=== PATIENT | male | born 1945 | race Caucasian/White ===

== ENCOUNTER 2016-03-30 15:36 | Emergency (ER) | payer MEDICARE, OTHER ==
[2016-03-30] MEDS ORDERED: NS 0.9% 1000 ML* 1,000 ML IV ONE (16:32)
[2016-03-30 16:44] LABS: Hematocrit 42 % (42-52); Hemoglobin 13.8 g/dl (14.0-18.0); Mean Corpuscular HGB Conc 33 g/dl (31-36); Mean Corpuscular Hemoglobin 34 pg (27-31); Mean Corpuscular Volume 104 fL (80-94); Mean Platelet Volume 10 um3 (7.4-10.4); Red Blood Count 4.02 10^6/ul (4.0-5.4); Red Cell Distribution Width 15 % (10.5-15)
[2016-03-30 16:56] LABS: ALT 14 U/L (7-52); Albumin 4.2 g/dL (3.2-5.2); Alkaline Phosphatase 65 U/L (34-104); BUN/Creatinine Ratio 12.5 (8-20); Blood Urea Nitrogen 11 mg/dL (6-24); CO2 Carbon Dioxide 24 mmol/L (22-32); Calcium 9.3 mg/dL (8.6-10.3); Chloride 100 mmol/L (101-111); EGFR African American 110.1 (>60); EGFR Non-African American 85.6 (>60); Glucose 88 mg/dL (70-100); Magnesium 2.1 mg/dL (1.9-2.7); Sodium 134 mmol/L (133-145); Total Protein 8.2 g/dL (6.4-8.9)
[2016-03-30] MEDS ORDERED: levETIRAcetam TAB* 500 MG PO ONE (18:36)
[2016-03-30 19:11] VITALS: BP 136/62
--- NOTE | 2016-03-30 22:49 | ED ---
Healdio Cook Matthew, scribed for Shin Sanchez MD on 03/30/16 at 1626 . Syncope/Near Syncope - HPI Summary HPI Summary: A 70 y/o male presents to the ED by EMS after a syncopal episode this afternoon. The patient was sitting and talking to his , when per the the patient's head slumped down and his eye's rolled back. Associated symptoms include weakness, diaphoresis, and increased thirst/urinary output. The patient denies any pain during the episode. The episode subsided some time during the ambulance ride. Currently, the patient feels less alert than baseline. He has a Hx of syncopal episodes and this episode felt similar; however, it was worse than before. The patient see's Dr. Kidd and is on keppra. He's also on Warfarin for AFib. He has a Hx of two CVA. He's also c/o of decreased appetite for the past - 4 weeks. - History Of Current Complaint Chief Complaint: EDSyncope Time Seen by Provider: 03/30/16 15:54 Hx Obtained From: Patient, Family/Grinder Set Up Operator Thread Tool - Onset/Duration: Sudden Onset, Lasting Minutes, Resolved Timing: Constant Context: Witnessed Activity At Onset: At Rest Associated Head Trauma: No Aggravating Factor(s): Nothing Alleviating Factor(s): Spontaneous Resolution Associated Signs And Symptoms: Diaphoresis, Weakness, Other - Increased thirst - Allergies/Home Medications Allergies/Adverse Reactions: Allergies Allergy/AdvReac Type Severity Reaction Status Date / Time Iodine Allergy Severe SEVERE Verified 12/11/15 16:03 HIVES, THROAT CLOSES Azithromycin [From Zithromax] Allergy Rash Verified 12/11/15 16:03 Pregabalin [From Lyrica] Allergy SEVERE Verified 12/11/15 16:03 BRADYCARDIA WITH SYNCOPE PMH/Surg Hx/FS Hx/Imm Hx Endocrine/Hematology History: Denies: Hx Diabetes Cardiovascular History: Reports: Hx Atrial Fibrillation, Hx Hypertension - ON MEDS, Other Cardiovascular Problems/Disorders - Afib Denies: Hx Pacemaker/ICD Respiratory History: Reports: Other Respiratory Problems/Disorders - sinusitis Denies: Hx Asthma History: Reports: Other Problems/Disorders - urostomy, bladder cancer and bladder removal Denies: Hx Dialysis, Hx Renal Disease Musculoskeletal History: Reports: Hx Arthritis Sensory History: Reports: Hx Cataracts - removed, Hx Contacts or Glasses Denies: Hx Hearing Aid Opthamlomology History: Reports: Hx Cataracts - removed, Hx Contacts or Glasses Neurological History: Reports: Hx CVA - 2010 - affected left side of body, 2012 - affected right side of body Psychiatric History: Denies: Hx Panic Disorder - Cancer History Cancer Type, Location and Year: PROSTATE CA, Bladder CA Hx Chemotherapy: No Hx Radiation Therapy: No - Surgical History Surgery Procedure, Year, and Place: FULL BLADDER/PROSTATE REMOVAL ;. Cataracts removed; Hx Anesthesia Reactions: No Infectious Disease History: No Infectious Disease History: Denies: Traveled Outside the [place] in Last 30 Days - Family History Known Family History: Positive: Other - Cancer - both parents and brother - Social History Alcohol Use: Daily Alcohol Amount: 5-6 beers Substance Use Type: Reports: None Smoking Status (MU): Former Smoker Type: Cigarettes Amount Used/How Often: 1.5-2 PPD Have You Smoked in the Last Year: No Review of Systems Constitutional: Other - Increased thirst Positive: Skin Diaphoresis Eyes: Negative ENT: Negative Cardiovascular: Negative Respiratory: Negative Gastrointestinal: Negative Genitourinary: Other - Increased urinary output Musculoskeletal: Negative Skin: Negative Positive: Weakness, Syncope Psychological: Normal All Other Systems Reviewed And Are Negative: Yes Physical Exam Triage Information Reviewed: Yes Vital Signs On Initial Exam: Initial Vitals Temp Pulse Resp BP Pulse Ox 97.5 F 51 14 110/86 100 03/30/16 15:38 03/30/16 15:38 03/30/16 15:38 03/30/16 15:38 03/30/16 15:38 Vital Signs Reviewed: Yes Appearance: Positive: Well-Appearing, No Pain Distress Skin: Positive: Warm, Skin Color Reflects Adequate Perfusion, Dry Head/Face: Positive: Normal Head/Face Inspection Eyes: Positive: Normal ENT: Positive: Other - oral mucosa dry Neck: Positive: Supple, Nontender Respiratory/Lung Sounds: Positive: Clear to Auscultation, Breath Sounds Present Cardiovascular: Positive: IRR Abdomen Description: Positive: Nontender, Soft Bowel Sounds: Positive: Present Musculoskeletal: Positive: Normal Neurological: Positive: Normal Psychiatric: Positive: Normal, Affect/Mood Appropriate - Shania Coma Scale Coma Scale Total: 15 Diagnostics - Vital Signs Vital Signs Temp Pulse Resp BP Pulse Ox 03/30/16 15:38 97.5 F 51 14 110/86 100 - Laboratory Lab Results: Lab Results 03/30/16 03/30/16 03/30/16 Range/Units 15:40 15:40 15:40 WBC 5.0 (3.5-10.8) 10^3/ul RBC 4.02 (4.0-5.4) 10^6/ul Hgb 13.8 L (14.0-18.0) g/dl Hct 42 (42-52) % MCV 104 H (80-94) fL MCH 34 H (27-31) pg MCHC 33 (31-36) g/dl RDW 15 (10.5-15) % Plt Count 146 L (150-450) 10^3/ul MPV 10 (7.4-10.4) um3 Neut % (Auto) 55.6 (38-83) % Lymph % (Auto) 32.6 (25-47) % [place] % (Auto) 8.3 (1-9) % Eos % (Auto) 2.9 (0-6) % Baso % (Auto) 0.6 (0-2) % Absolute Neuts (auto) 2.8 (1.5-7.7) 10^3/ul Absolute Lymphs (auto) 1.6 (1.0-4.8) 10^3/ul Absolute Monos (auto) 0.4 (0-0.8) 10^3/ul Absolute Eos (auto) 0.1 (0-0.6) 10^3/ul Absolute Basos (auto) 0 (0-0.2) 10^3/ul Absolute Nucleated RBC 0.01 10^3/ul Nucleated RBC % 0.3 INR (Anticoag Therapy) 2.66 H (0.89-1.11) Sodium 134 (133-145) mmol/L Potassium TNP Chloride 100 L (101-111) mmol/L Carbon Dioxide 24 (22-32) mmol/L Anion Gap TNP BUN 11 (6-24) mg/dL Creatinine 0.88 (0.67-1.17) mg/dL Est GFR ( Amer) 110.1 (>60) Est GFR (Non-Af Amer) 85.6 (>60) BUN/Creatinine Ratio 12.5 (8-20) Glucose 88 (70-100) mg/dL Lactic Acid (0.5-2.0) mmol/L Calcium 9.3 (8.6-10.3) mg/dL Magnesium 2.1 (1.9-2.7) mg/dL Total Bilirubin 0.60 (0.2-1.0) mg/dL AST TNP ALT 14 (7-52) U/L Alkaline Phosphatase 65 (34-104) U/L Troponin I 0.00 (<0.04) ng/mL Total Protein 8.2 (6.4-8.9) g/dL Albumin 4.2 (3.2-5.2) g/dL Globulin 4.0 (2-4) g/dL Albumin/Globulin Ratio 1.1 (1-3) TSH 8.60 H (0.34-5.60) mcIU/mL Valproic Acid 121.0 H (50-100) mcg/mL 03/30/16 Range/Units 15:40 WBC (3.5-10.8) 10^3/ul RBC (4.0-5.4) 10^6/ul Hgb (14.0-18.0) g/dl Hct (42-52) % MCV (80-94) fL MCH (27-31) pg MCHC (31-36) g/dl RDW (10.5-15) % Plt Count (150-450) 10^3/ul MPV (7.4-10.4) um3 Neut % (Auto) (38-83) % Lymph % (Auto) (25-47) % [place] % (Auto) (1-9) % Eos % (Auto) (0-6) % Baso % (Auto) (0-2) % Absolute Neuts (auto) (1.5-7.7) 10^3/ul Absolute Lymphs (auto) (1.0-4.8) 10^3/ul Absolute Monos (auto) (0-0.8) 10^3/ul Absolute Eos (auto) (0-0.6) 10^3/ul Absolute Basos (auto) (0-0.2) 10^3/ul Absolute Nucleated RBC 10^3/ul Nucleated RBC % INR (Anticoag Therapy) (0.89-1.11) Sodium (133-145) mmol/L Potassium Chloride (101-111) mmol/L Carbon Dioxide (22-32) mmol/L Anion Gap BUN (6-24) mg/dL Creatinine (0.67-1.17) mg/dL Est GFR ( Amer) (>60) Est GFR (Non-Af Amer) (>60) BUN/Creatinine Ratio (8-20) Glucose (70-100) mg/dL Lactic Acid 3.2 H* (0.5-2.0) mmol/L Calcium (8.6-10.3) mg/dL Magnesium (1.9-2.7) mg/dL Total Bilirubin (0.2-1.0) mg/dL AST ALT (7-52) U/L Alkaline Phosphatase (34-104) U/L Troponin I (<0.04) ng/mL Total Protein (6.4-8.9) g/dL Albumin (3.2-5.2) g/dL Globulin (2-4) g/dL Albumin/Globulin Ratio (1-3) TSH (0.34-5.60) mcIU/mL Valproic Acid (50-100) mcg/mL Result Diagrams: 03/30/16 15:40 03/30/16 15:40 Lab Statement: Any lab studies that have been ordered have been reviewed, and results considered in the medical decision making process. - EKG 15:28 Cardiac Rate: NL - 66 bpm EKG Rhythm: Atrial Fibrillation ST Segment: Non-Specific Course/Dx Assessment/Plan: A 70 y/o male presents to the ED by EMS after a syncopal episode this afternoon. Associated symptoms include weakness, diaphoresis, and increased thirst/urinary output. Labs were reviewed. EKG shows AFib at 66 bpm. He and his don't know the details but it seems that he has been tapering his Keppra and starting Depakote. His last Keppra was the night before last. Dr. Smith recommended a dose of Keppra now and consult with Dr. Kidd tomorrow. The patient will follow-up with Dr. Kidd tomorrow for further management. - Diagnoses Provider Diagnoses: Breakthrough seizure Discharge - Discharge Plan Condition: Stable Disposition: HOME Patient Education Materials: Recurrent Seizures in Adults (ED) Referrals: Jerson Kidd MD [Medical Doctor] - 1 Day Diana Killian MD [Primary Care Provider] - Additional Instructions: Please follow-up with Dr. Kidd tomorrow. The documentation as recorded by the Heladio shane Matthew accurately reflects the service I personally performed and the decisions made by me, Shin Sanchez MD.
== END 2016-03-30 19:01 | disposition home or self-care (01) ==
LOC: ED 15:36
DX: G40.909 Epilepsy, unspecified, not intractable, without status epilepticus (principal); I48.91 Unspecified atrial fibrillation; Z86.73 Personal history of transient ischemic attack (TIA), and cerebral infarction without residual deficits; Z79.02 Long term (current) use of antithrombotics/antiplatelets; I10 Essential (primary) hypertension; Z87.891 Personal history of nicotine dependence
CPT/HCPCS: 36415; 80053; 80164; 83605; 83735; 84443; 84484; 85025; 85610; 93005; 96360; 99283; A9270-GY

== ENCOUNTER 2016-07-21 10:04 | Inpatient (IN) | payer MEDICARE, OTHER ==
[2016-07-21 10:41] LABS: Hematocrit 43 % (42-52); Hemoglobin 14.1 g/dl (14.0-18.0); Mean Corpuscular HGB Conc 33 g/dl (31-36); Mean Corpuscular Hemoglobin 35 pg (27-31); Mean Platelet Volume 9 um3 (7.4-10.4); Red Blood Count 4.01 10^6/ul (4.0-5.4); Red Cell Distribution Width 15 % (10.5-15); White Blood Count 6.6 10^3/ul (3.5-10.8)
[2016-07-21 10:45] LABS: Comments Flag Yes; Mean Corpuscular Volume 106 fL (80-94)
--- NOTE | 2016-07-21 10:49 | RAD ---
INDICATION: Cough, chest tightness. COMPARISON: Comparison is made with a prior chest x-ray study from July 10, 2016. TECHNIQUE: A portable view of the chest was obtained. FINDINGS: Cardiac and mediastinal contours appear to be within normal limits. The lungs are clear. No pleural effusion is seen. IMPRESSION: NO EVIDENCE FOR ACUTE DISEASE.
[2016-07-21 10:59] LABS: Albumin 4.2 g/dL (3.2-5.2); BUN/Creatinine Ratio 15.7 (8-20); C Reactive Protein 17.87 mg/L (< 5.00); Calcium 9.3 mg/dL (8.6-10.3); EGFR African American 117.8 (>60); EGFR Non-African American 91.6 (>60); Globulin 4.1 g/dL (2-4); Potassium 4.1 mmol/L (3.5-5.0); Total Bilirubin 0.9 mg/dL (0.2-1.0); Total Protein 8.3 g/dL (6.4-8.9)
[2016-07-21] MEDS ORDERED: Albuterol/Ipratropium NEB.SOL* Albuterol 2.5 MG/Ipratropium 0.5 MG 3 ML INH ONE ×2 (11:06→11:51)
[2016-07-21 11:11] LABS: TSH (Thyroid Stimulating Horm) 2.79 mcIU/mL (0.34-5.60)
[2016-07-21] MEDS ORDERED: Acetaminophen TAB* 325 MG PO ONE (11:51)
[2016-07-21] MEDS ORDERED: methylPREDNISolone 125 MG* 2 ML VIAL IV ONE (11:51)
[2016-07-21] MEDS ORDERED: Aspirin Low Dose CHEW TAB* 81 MG PO ONE (11:51)
[2016-07-21] MEDS ORDERED: Levofloxacin 750 MG IVPREMIX(* 750 MG/150 ML BAG IVPB ONE (11:51)
[2016-07-21] MEDS: NS 0.9% 1000 ML* 1,000 ML IV SCH ×2 (12:03→22:21)
[2016-07-21] MEDS ORDERED: Ondansetron INJ* 2 MG/ML VIAL IV PRN (12:39)
[2016-07-21] MEDS ORDERED: Acetaminophen TAB* 325 MG PO PRN (12:39)
[2016-07-21] MEDS ORDERED: Albuterol 2.5 MG/3 ML NEB.SOL* (0.083%) INH PRN (12:39)
[2016-07-21] MEDS ORDERED: Magnesium Hydroxide LIQ* 30 ML UDC PO ONE (12:50)
[2016-07-21] MEDS ORDERED: Warfarin TAB(*) 1 MG PO SCH ×2 (13:00→17:00)
[2016-07-21] MEDS ORDERED: Digoxin TAB* 0.125 MG PO SCH (13:00)
[2016-07-21] MEDS ORDERED: LORazepam TAB(*) 1 MG PO SCH (13:00)
[2016-07-21] MEDS: Albuterol/Ipratropium NEB.SOL* Albuterol 2.5 MG/Ipratropium 0.5 MG 3 ML INH SCH ×3 (13:33→23:09)
--- NOTE | 2016-07-21 13:33 | ED ---
Yariel Cook Alfonso, scribed for Hilario Coppola MD on 07/21/16 at 1037 . Shortness of Breath - HPI Summary HPI Summary: This patient is a 70 year old male presenting to [facility] for dyspnea at rest since a few days ago. This morning, the patient reports his "worst episode of coughing that left me choking." For the last few days, he reports having SOB, rhinorrhea, a productive cough with green sputum, sneezing, constipation, nausea , chest tightness, abdominal pain, weakness, lightheadedness, and a headache in the frontal lobe that does not radiate. Patient denies sore throat and diarrhea. Sx aggravated and alleviated by nothing. PMHx of A-Fib. Reports no PMHx of COPD and asthma, but has been using an inhaler for the last two days. Takes blood thinner and digoxin. - History of Current Complaint Chief Complaint: EDShortnessOfBreath Time Seen by Provider: 07/21/16 10:15 Hx Obtained From: Patient Onset/Duration: Sudden Onset, Lasting Days - A few, Still Present Timing: Constant Current Severity: Moderate Dyspnea At: Rest Aggrevating Factors: Nothing Alleviating Factors: Nothing Associated Signs & Symptoms: Cough (Productive) - Green Sputum, Wheezing - Allergy/Home Medications Allergies/Adverse Reactions: Allergies Allergy/AdvReac Type Severity Reaction Status Date / Time Iodine Allergy Severe SEVERE Verified 12/11/15 16:03 HIVES, THROAT CLOSES Azithromycin [From Zithromax] Allergy Rash Verified 12/11/15 16:03 Pregabalin [From Lyrica] Allergy SEVERE Verified 12/11/15 16:03 BRADYCARDIA WITH SYNCOPE Home Medications: Home Medications Digoxin TAB* [Lanoxin TAB*] 0.125 mg PO Q48H 07/21/16 [History Confirmed ] Warfarin TAB(*) [Coumadin TAB(*)] 1 mg PO [id number] 07/21/16 [History Confirmed 07/21/16] Warfarin TAB(*) [Coumadin TAB(*)] 2 mg PO ONOFRE 07/21/16 [History Confirmed ] PMH/Surg Hx/FS Hx/Imm Hx Endocrine/Hematology History: Denies: Hx Diabetes Cardiovascular History: Reports: Hx Atrial Fibrillation, Hx Hypertension - ON MEDS, Other Cardiovascular Problems/Disorders - Afib Denies: Hx Pacemaker/ICD Respiratory History: Reports: Other Respiratory Problems/Disorders - sinusitis Denies: Hx Asthma History: Reports: Other Problems/Disorders - urostomy, bladder cancer and bladder removal Denies: Hx Dialysis, Hx Renal Disease Musculoskeletal History: Reports: Hx Arthritis Sensory History: Reports: Hx Cataracts - removed, Hx Contacts or Glasses Denies: Hx Hearing Aid Opthamlomology History: Reports: Hx Cataracts - removed, Hx Contacts or Glasses Neurological History: Reports: Hx CVA - 2010 - affected left side of body, 2012 - affected right side of body Psychiatric History: Denies: Hx Panic Disorder - Cancer History Cancer Type, Location and Year: PROSTATE CA, Bladder CA Hx Chemotherapy: No Hx Radiation Therapy: No - Surgical History Surgery Procedure, Year, and Place: FULL BLADDER/PROSTATE REMOVAL ;. Cataracts removed; Hx Anesthesia Reactions: No Infectious Disease History: No Infectious Disease History: Denies: Traveled Outside the [place] in Last 30 Days - Family History Known Family History: Positive: Other - Cancer - both parents and brother - Social History Alcohol Use: Daily Alcohol Amount: "one to two a night" Substance Use Type: Reports: None Smoking Status (MU): Former Smoker Type: Cigarettes Amount Used/How Often: 1.5-2 PPD Have You Smoked in the Last Year: No Review of Systems Constitutional: Negative Eyes: Negative ENT: Negative Negative: Sore Throat Positive: Other - Positive chest tightness Positive: Shortness Of Breath, Cough - Productive cough with green sputum, Other - Positive dyspnea at rest, sneezing, wheezing, and rhinorrhea. Negative sore throat. Positive: Abdominal Pain, Nausea, Other - Positive constipation. Negative: Diarrhea Genitourinary: Negative Positive: Other - Chest tightness Skin: Negative Neurological: Other - Positive Lightheadedness Positive: Headache - frontal lobe that does not radiate, Weakness Psychological: Normal All Other Systems Reviewed And Are Negative: Yes Physical Exam - Summary Physical Exam Summary: Gen: Mildly ill appearing, no pain distress Skin: warm, color, dry Head: normal Eyes: EOMI, SHY ENT: rhinorrhea Neck: supple, nontender Resp: Breath sounds present, no respiratory distress, Wheezing and rhonchi in bilateral lungs. Cardio: RRR Abd: soft, nontender Bowel: present Musc: normal, strength/ROM intact. No pedal edema. No calf tenderness. Neuro: normal, sensory/motor intact, A&O x3 Psych: affect/mood appropriate Triage Information Reviewed: Yes Vital Signs On Initial Exam: Initial Vitals Temp Pulse Resp BP Pulse Ox 97.4 F 85 20 139/70 99 07/21/16 10:04 07/21/16 10:04 07/21/16 10:04 07/21/16 10:04 07/21/16 10:04 Vital Signs Reviewed: Yes Diagnostics - Vital Signs Vital Signs Temp Pulse Resp BP Pulse Ox 07/21/16 10:07 97.4 F 57 20 139/70 98 07/21/16 10:04 97.4 F 85 20 139/70 99 - Laboratory Lab Results: Lab Results 07/21/16 07/21/16 07/21/16 Range/Units 10:21 10:21 10:21 WBC 6.6 (3.5-10.8) 10^3/ul RBC 4.01 (4.0-5.4) 10^6/ul Hgb 14.1 (14.0-18.0) g/dl Hct 43 (42-52) % MCV 106 H (80-94) fL MCH 35 H (27-31) pg MCHC 33 (31-36) g/dl RDW 15 (10.5-15) % Plt Count 162 (150-450) 10^3/ul MPV 9 (7.4-10.4) um3 Neut % (Auto) 57.0 (38-83) % Lymph % (Auto) 16.6 L (25-47) % [place] % (Auto) 10.4 H (1-9) % Eos % (Auto) 15.0 H (0-6) % Baso % (Auto) 1.0 (0-2) % Absolute Neuts (auto) 3.8 (1.5-7.7) 10^3/ul Absolute Lymphs (auto) 1.1 (1.0-4.8) 10^3/ul Absolute Monos (auto) 0.7 (0-0.8) 10^3/ul Absolute Eos (auto) 1.0 H (0-0.6) 10^3/ul Absolute Basos (auto) 0.1 (0-0.2) 10^3/ul Absolute Nucleated RBC 0.01 10^3/ul Nucleated RBC % 0.1 INR (Anticoag Therapy) 2.61 H (0.89-1.11) APTT 41.7 H (26.0-36.3) seconds Sodium 142 (133-145) mmol/L Potassium 4.1 (3.5-5.0) mmol/L Chloride 108 (101-111) mmol/L Carbon Dioxide 26 (22-32) mmol/L Anion Gap 8 (2-11) mmol/L BUN 13 (6-24) mg/dL Creatinine 0.83 (0.67-1.17) mg/dL Est GFR ( Amer) 117.8 (>60) Est GFR (Non-Af Amer) 91.6 (>60) BUN/Creatinine Ratio 15.7 (8-20) Glucose 111 H (70-100) mg/dL Lactic Acid (0.5-2.0) mmol/L Calcium 9.3 (8.6-10.3) mg/dL Magnesium 2.0 (1.9-2.7) mg/dL Total Bilirubin 0.90 (0.2-1.0) mg/dL AST 22 (13-39) U/L ALT 13 (7-52) U/L Alkaline Phosphatase 80 (34-104) U/L Total Creatine Kinase 127 (10-223) U/L CK-MB (CK-2) 5.8 (0.6-6.3) ng/mL Troponin I 0.00 (<0.04) ng/mL C-Reactive Protein 17.87 H (< 5.00) mg/L B-Natriuretic Peptide ( - 100) pg/mL Total Protein 8.3 (6.4-8.9) g/dL Albumin 4.2 (3.2-5.2) g/dL Globulin 4.1 H (2-4) g/dL Albumin/Globulin Ratio 1.0 (1-3) Lipase 29 (11.0-82.0) U/L TSH 2.79 (0.34-5.60) mcIU/mL 07/21/16 07/21/16 Range/Units 10:21 10:21 WBC (3.5-10.8) 10^3/ul RBC (4.0-5.4) 10^6/ul Hgb (14.0-18.0) g/dl Hct (42-52) % MCV (80-94) fL MCH (27-31) pg MCHC (31-36) g/dl RDW (10.5-15) % Plt Count (150-450) 10^3/ul MPV (7.4-10.4) um3 Neut % (Auto) (38-83) % Lymph % (Auto) (25-47) % [place] % (Auto) (1-9) % Eos % (Auto) (0-6) % Baso % (Auto) (0-2) % Absolute Neuts (auto) (1.5-7.7) 10^3/ul Absolute Lymphs (auto) (1.0-4.8) 10^3/ul Absolute Monos (auto) (0-0.8) 10^3/ul Absolute Eos (auto) (0-0.6) 10^3/ul Absolute Basos (auto) (0-0.2) 10^3/ul Absolute Nucleated RBC 10^3/ul Nucleated RBC % INR (Anticoag Therapy) (0.89-1.11) APTT (26.0-36.3) seconds Sodium (133-145) mmol/L Potassium (3.5-5.0) mmol/L Chloride (101-111) mmol/L Carbon Dioxide (22-32) mmol/L Anion Gap (2-11) mmol/L BUN (6-24) mg/dL Creatinine (0.67-1.17) mg/dL Est GFR ( Amer) (>60) Est GFR (Non-Af Amer) (>60) BUN/Creatinine Ratio (8-20) Glucose (70-100) mg/dL Lactic Acid 1.2 (0.5-2.0) mmol/L Calcium (8.6-10.3) mg/dL Magnesium (1.9-2.7) mg/dL Total Bilirubin (0.2-1.0) mg/dL AST (13-39) U/L ALT (7-52) U/L Alkaline Phosphatase (34-104) U/L Total Creatine Kinase (10-223) U/L CK-MB (CK-2) (0.6-6.3) ng/mL Troponin I (<0.04) ng/mL C-Reactive Protein (< 5.00) mg/L B-Natriuretic Peptide 174 H ( - 100) pg/mL Total Protein (6.4-8.9) g/dL Albumin (3.2-5.2) g/dL Globulin (2-4) g/dL Albumin/Globulin Ratio (1-3) Lipase (11.0-82.0) U/L TSH (0.34-5.60) mcIU/mL Result Diagrams: 07/21/16 10:21 07/21/16 10:21 Lab Statement: Any lab studies that have been ordered have been reviewed, and results considered in the medical decision making process. - Radiology CXR Xray Interpretation: No Acute Changes - NO EVIDENCE FOR ACUTE DISEASE. Radiology Interpretation Completed By: Radiologist - EKG 1014 EKG Rhythm: Atrial Fibrillation - 83 BPM EKG Interpretation: RBBB. Mild ST Depression in V4-6 Re-Evaluation - Re-Evaluation First Eval Re-Evaluation Time: 11:55 Comment: Patient is still wheezing. Discussed admission with the patient and they are agreeable. Second Eval Re-Evaluation Time: 12:45 Course/Dx - Course Course Of Treatment: NO CRITICAL CARE TIME. ADMIT HOSPITALIST STABLE. - Diagnoses Provider Diagnoses: COPD (chronic obstructive pulmonary disease), Chest pain - Physician Notifications Discussed Care of Patient With: Asher Shane Time Discussed With Above Provider: 12:00 - Dr. Shane agrees to admit patient. Discharge - Discharge Plan Condition: Stable Disposition: ADMITTED TO [facility] documentation as recorded by the Yariel shane Alfonso accurately reflects the service I personally performed and the decisions made by me, Hilario Coppola MD.
[2016-07-21] MEDS ORDERED: cefTRIAXone VIAL(*) 1,000 MG in NS 0.9% 50 ML* 50 ML IVPB SCH (14:00)
[2016-07-21] MEDS ORDERED: NS 0.9% 250 ML* 250 ML ONE (14:16)
[2016-07-21] MEDS: Azithromycin IV(*) 500 MG in NS 0.9% 250 ML* 250 ML IVPB SCH (14:30)
[2016-07-21] MEDS: predniSONE TAB* 20 MG PO SCH (14:30)
--- NOTE | 2016-07-21 15:05 | HP ---
CC: Dr. Diana Barragan. * HISTORY AND PHYSICAL: DATE OF ADMISSION: 07/21/16 PRIMARY CARE PROVIDER: Dr. Diana Barragan. ATTENDING PHYSICIAN WHILE IN THE HOSPITAL: Dr. Asher Shane *(report dictated by Vidal Garcia NP). CHIEF COMPLAINT: 1. Shortness of breath. 2. Tightness in chest. HISTORY OF PRESENT ILLNESS: Mr. Gamez is a 70-year-old male patient. He has a history of AFib, bladder cancer status post bladder resection with urostomy, history of CVA x2, hypertension, gout, and COPD. He comes into the ER today stating that over the last couple of weeks, he has been feeling more short of breath. He has been having congestion, runny nose. He started out with this congestion and runny nose about a couple of weeks ago and has progressively gotten worse now to the point that he feels tightness in his chest. It is hard for him to breathe. He is feeling more short of breath. He has been feeling nauseated and in addition to this, he has also been feeling constipated. He denies any abdominal pain. He says his urostomy has been working appropriately. Denies having any pain with this. He does state that his breathing was not getting any better to the fact that he was feeling congested and he was having chills off and on. He decides to come into the ER today particularly because of the chest pain as well, which he describes as a tightness in his chest, it is painful when he does take a deep breath and it is across the center of his chest. He does state that it gets worse with exertion particularly his breathing. He was evaluated in the ER here today and there was concern for possible COPD exacerbation. We were asked to evaluate for admission. PAST MEDICAL HISTORY: Significant for: 1. AFib. 2. CVA x2. 3. Gout. 4. COPD. 5. Bladder cancer. 6. Hypertension. PAST SURGICAL HISTORY: He has had an urostomy. HOME MEDICATIONS: According to the list he provided to me included: 1. Warfarin 2 mg on Thursday. 2. Warfarin 1 mg Thursday, Thursday, Thursday, , Thursday, Thursday. 3. [place] 1 tablet every 4 hours as needed. 4. Digoxin 0.125 mg p.o. every other day. 5. Ventolin 1 puff inhaler every 4 hours. 6. Advair 1 puff inhaled b.i.d. 7. Diltiazem 120 mg daily. 8. Allopurinol 300 mg daily. 9. Mometasone 15 mcg nasally b.i.d. as needed. ALLERGIES TO MEDICATIONS: Include IODINE, AZITHROMYCIN and LYRICA. FAMILY HISTORY: Both his parents have had cancer. SOCIAL HISTORY: He is a former smoker. He does drink about 4 to 5 beers a day. Surrogate decision maker is his . REVIEW OF SYSTEMS: There is no documented fever although he does admit to having chills. There was no significant weight change. There was no double vision. He denies having any ear discharge. There was rhinorrhea. There was no sore throat but he does admit to feeling congested. He does admit to feeling nauseated. He does admit to having constipation. He does state that he has been having a cough that has been productive of green type sputum. He denies any abdominal discomfort. Denies any lightheadedness. No dysuria, no frequency and there was no loss of consciousness. Review of 14 systems completed and all others negative. PHYSICAL EXAMINATION GENERAL: Mr. Combs is a 70-year-old male patient. He appears to be well nourished, well developed who is sitting in the ER stretcher. VITAL SIGNS: Blood pressure 107/59, the pulse is 78, respirations 18, O2 sat 96 %, temperature 97.4. HEENT: Head is atraumatic, normocephalic. Eyes: EOMs are intact. Sclerae anicteric and not pale. Throat: Oral mucosa appears to be moist. No oropharyngeal erythema. NECK: Supple. LUNGS: He did have rhonchi in the lower bases, equal diaphragmatic expansion. HEART: Sounds S1, S2. Regular rate and rhythm. No murmurs, rubs or gallops. ABDOMEN: Soft, flat, nontender. Bowel sounds present. EXTREMITIES: Pulses were 2+ throughout. He is able to move all 4 extremities with 5/5 strength. NEUROLOGIC: The patient is awake, he is alert, he is oriented x3. No gross focal deficits. SKIN: Intact. DIAGNOSTIC STUDIES/LAB DATA: Today revealed a WBC of 6.6, RBC of 4.01, hemoglobin 14.1, hematocrit of 43, platelet count of 162. INR was 2.61, PTT was 41.7. Sodium 143, potassium 4.1, chloride of 108, bicarb 26, BUN 13, creatinine 0.83, glucose of 111, lactate 1.3, calcium 9.3. Mag 2.0, total bilirubin 0.9, AST 22, ALT 13, alk phos 80. CK 127, CK-MB 5.8. Troponin 0. CRP of 17. BNP 174. Albumin 4.2. TSH of 2.79. He had a chest x-ray obtained today, impression: No evidence for acute disease. EKG obtained today revealed atrial fibrillation with a rate of 83. He had a ST depression in V5, V4, V6 and V3. Subtle depression in II , III and AVF. On reviewing her previous EKG, this appears to be similar. Old medical records were reviewed. ASSESSMENT AND PLAN: Mr. Gamez is a 70-year-old male patient coming into the ER today with complaints of initially feeling congested, now progressing with a cough and shortness of breath and chest pain. On evaluation, there was a concern for chronic obstructive pulmonary disease. We were asked to evaluate for admission. He will be admitted under observation status. 1. Chronic obstructive pulmonary disease exacerbation. At this point, I will put him on steroids, standing nebulizers. We will put him on azithromycin and Rocephin. I will get a legionella antigen, strep pneumo antigen and in addition to this, try to get a sputum culture and I did order a flutter valve and will continue with pulmonary toileting. 2. Chest pain. I suspect this is pulmonary in nature. At this point, I am going to go ahead and cycle his troponins. We will place him on telemetry and will follow closely. 3. Atrial fibrillation. Continue his rate controlling agents, diltiazem along with his digoxin and also continue the patient's warfarin. 4. History of cerebrovascular accident. Continue secondary prevention. 5. History of gout. Continue with his allopurinol. 6. Bladder cancer. Follow with primary. 7. Hypertension. Continue meds as prescribed. 8. DVT prophylaxis. His INR is therapeutic. We will continue checking his INR. Continue with Coumadin for this. 9. Fluids, electrolytes and nutrition. He can have a regular diet. 10. Code status. Full code. TIME SPENT: Time spent on the admission 60 minutes, greater than half time spent [id number] with the patient obtaining my history and physical, other half of the time was spent going over the plan of care with the patient and implementing plan of care. I did discuss the plan of care with my attending Dr. Shane; he is in agreement. VIDAL GARCIA NP [id number]/[facility] #: [id number] LEANDRO
[2016-07-21 16:15] LABS: Urine Bacteria Absent (Absent); Urine Bilirubin Negative (Negative); Urine Glucose Negative (Negative); Urine Nitrite Negative (Negative)
[2016-07-21] MEDS: HYDROcodone/ACETAMIN 5-325 MG* 1 TAB PO PRN (18:09)
[2016-07-21] MEDS: Mometasone/Formoter 200/5 MDI INH SCH (19:58)
[2016-07-21] MEDS ORDERED: Fluticasone-Salmeterol 500-50* DISKUS INH SCH (21:00)
[2016-07-22] MEDS: NS 0.9% 1000 ML* 1,000 ML IV SCH ×2 (05:17→12:25)
[2016-07-22 05:58] LABS: Hematocrit 38 % (42-52); Hemoglobin 12.6 g/dl (14.0-18.0); Mean Corpuscular HGB Conc 33 g/dl (31-36); Mean Corpuscular Hemoglobin 35 pg (27-31); Mean Platelet Volume 10 um3 (7.4-10.4); Red Blood Count 3.56 10^6/ul (4.0-5.4); Red Cell Distribution Width 15 % (10.5-15)
[2016-07-22 06:06] LABS: Comments Flag Yes; Mean Corpuscular Volume 106 fL (80-94)
[2016-07-22 06:13] LABS: BUN/Creatinine Ratio 20.5 (8-20); Calcium 8.9 mg/dL (8.6-10.3); EGFR African American 136.6 (>60); EGFR Non-African American 106.2 (>60); Potassium 4.3 mmol/L (3.5-5.0)
[2016-07-22] MEDS: predniSONE TAB* 20 MG PO SCH (07:36)
[2016-07-22] MEDS: Folic Acid TAB* 1 MG PO SCH (07:37)
[2016-07-22] MEDS: Multivitamins/Minerals TAB PO SCH (07:37)
[2016-07-22] MEDS: HYDROcodone/ACETAMIN 5-325 MG* 1 TAB PO PRN (07:38)
[2016-07-22] MEDS: Allopurinol TAB* 300 MG PO SCH (07:38)
[2016-07-22] MEDS: Thiamine TAB* 100 MG TAB PO SCH (07:38)
[2016-07-22] MEDS: Diltiazem CD CAP* 120 MG PO SCH (07:38)
[2016-07-22] MEDS: Mometasone/Formoter 200/5 MDI INH SCH ×2 (09:32→21:50)
[2016-07-22] MEDS ORDERED: Omeprazole CAP* 20 MG PO ONE (11:55)
--- NOTE | 2016-07-22 12:16 | PN ---
Subjective Date of Service: 07/22/16 Interval History: Pt states he feels no better today than yesterday. He states in addition to the cough, SOB and weakness he also feels slightly lightheaded today. He states yesterday he brought up some mucous but today he has not. Family History: Unchanged from Admission Social History: Unchanged from Admission Past Medical History: Unchanged from Admission Objective Active Medications: Acetaminophen (Tylenol Tab*) 650 mg PO Q4H PRN PRN Reason: FEVER/PAIN Hydrocodone Bitart/Acetaminophen (Ironside 5-325 Tab*) 2 tab PO Q6H PRN PRN Reason: PAIN Last Admin: 07/22/16 07:38 Dose: 2 tab Albuterol (Ventolin 2.5 Mg/3 Ml Neb.Clementina*) 2.5 mg INH Q2H PRN PRN Reason: SOB/WHEEZING Allopurinol (Zyloprim Tab*) 300 mg PO DAILY [facility] Last Admin: 07/22/16 07:38 Dose: 300 mg Digoxin (Lanoxin Tab*) 0.125 mg PO Q48H [facility] Last Admin: 07/21/16 14:30 Dose: 0.125 mg Diltiazem HCl (Cardizem Cd Cap*) 120 mg PO DAILY [facility] Last Admin: 07/22/16 07:38 Dose: 120 mg Folic Acid (Folvite Tab*) 1 mg PO DAILY [facility] Last Admin: 07/22/16 07:37 Dose: 1 mg Sodium Chloride (Ns 0.9% 1000 Ml*) 1,000 mls @ 150 mls/hr IV PER RATE [facility] Last Admin: 07/22/16 05:17 Dose: 150 mls/hr Ceftriaxone Sodium 1,000 mg/ (Sodium Chloride) 50 mls @ 200 mls/hr IVPB Q24H [facility] Last Admin: 07/21/16 16:16 Dose: 200 mls/hr Azithromycin 500 mg/ Sodium (Chloride) 250 mls @ 250 mls/hr IVPB Q24H [facility] Last Admin: 07/21/16 14:30 Dose: 250 mls/hr Lorazepam (Ativan Tab(*)) 0 mg PO .PER WAM SCORE [facility] PRN Reason: Protocol Mometasone Furoate/Formoterol Fumar (Dulera 200/5 Mdi*) 2 puff INH BID [facility] Last Admin: 07/22/16 09:32 Dose: 2 puff Multivitamins/Minerals (Theragran/Minerals Tab*) 1 tab PO DAILY [facility] Last Admin: 07/22/16 07:37 Dose: 1 tab Omeprazole (Prilosec Cap*) 20 mg PO ONCE ONE Stop: 07/22/16 11:56 Omeprazole (Prilosec Cap*) 20 mg PO DAILY@0600 [facility] Ondansetron HCl (Zofran Inj*) 4 mg IV Q6H PRN PRN Reason: NAUSEA Prednisone (Deltasone Tab*) 60 mg PO DAILY [facility] Last Admin: 07/22/16 07:36 Dose: 60 mg Thiamine HCl (Vitamin B-1 Tab*) 100 mg PO DAILY [facility] Last Admin: 07/22/16 07:38 Dose: 100 mg Warfarin Sodium (Coumadin Tab(*)) 2 mg PO Rankin@1700 [facility] PRN Reason: Protocol Warfarin Sodium (Coumadin Tab(*)) 1 mg PO MoTuWeThFrSa@1700 [facility] PRN Reason: Protocol Last Admin: 07/21/16 18:09 Dose: 1 mg Vital Signs 07/21/16 07/21/16 07/21/16 13:00 13:05 13:12 Temperature 97.9 F Pulse Rate 82 102 Respiratory 23 12 16 Rate Blood Pressure 111/87 107/71 (mmHg) O2 Sat by Pulse 96 95 Oximetry 07/21/16 07/21/16 07/21/16 13:15 13:22 14:30 Temperature 97.8 F Pulse Rate 88 87 84 Respiratory 16 18 Rate Blood Pressure 138/72 (mmHg) O2 Sat by Pulse 95 Oximetry 07/21/16 07/21/16 07/21/16 15:28 17:50 18:09 Temperature 97.6 F Pulse Rate 87 76 Respiratory 22 13 16 Rate Blood Pressure 101/63 (mmHg) O2 Sat by Pulse 94 96 Oximetry 07/21/16 07/21/16 07/21/16 20:00 20:09 20:19 Temperature 97.7 F Pulse Rate 16 110 Respiratory 18 16 20 Rate Blood Pressure 114/65 (mmHg) O2 Sat by Pulse 73 96 Oximetry 07/21/16 07/22/16 07/22/16 22:40 01:08 03:09 Temperature 98.0 F 97.4 F 97.7 F Pulse Rate 78 88 97 Respiratory 16 16 16 Rate Blood Pressure 120/64 120/62 115/65 (mmHg) O2 Sat by Pulse 95 97 97 Oximetry 07/22/16 07/22/16 07/22/16 05:04 07:38 07:50 Temperature 97.5 F 98.6 F Pulse Rate 98 94 Respiratory 16 16 16 Rate Blood Pressure 129/76 142/74 (mmHg) O2 Sat by Pulse 97 97 Oximetry 07/22/16 07/22/16 07/22/16 09:38 09:40 10:37 Temperature 98.8 F Pulse Rate 100 94 Respiratory 16 16 16 Rate Blood Pressure 120/64 (mmHg) O2 Sat by Pulse 95 95 Oximetry Oxygen Devices in Use Now: None Appearance: Elderly male sitting up on the edge of the bed, appearing very comfortable, NAD Eyes: No Scleral Icterus Ears/Nose/Mouth/Throat: Mucous Membranes Moist Respiratory: Symmetrical Chest Expansion and Respiratory Effort, Clear to Auscultation Cardiovascular: NL Sounds; No Murmurs; No JVD, No Edema, - - irregularly irregular, controlled rate Abdominal: NL Sounds; No Tenderness; No Distention Extremities: No Clubbing, Cyanosis Skin: No Rash or Ulcers, No Nodules or Sclerosis Neurological: Alert and Oriented x 3 Result Diagrams: 07/22/16 05:37 07/22/16 05:37 Additional Lab and Data: Lab Results 07/21/16 07/21/16 07/21/16 Range/Units 10:21 10:21 10:21 WBC 6.6 (3.5-10.8) 10^3/ul RBC 4.01 (4.0-5.4) 10^6/ul Hgb 14.1 (14.0-18.0) g/dl Hct 43 (42-52) % MCV 106 H (80-94) fL MCH 35 H (27-31) pg MCHC 33 (31-36) g/dl RDW 15 (10.5-15) % Plt Count 162 (150-450) 10^3/ul MPV 9 (7.4-10.4) um3 Neut % (Auto) 57.0 (38-83) % Lymph % (Auto) 16.6 L (25-47) % [place] % (Auto) 10.4 H (1-9) % Eos % (Auto) 15.0 H (0-6) % Baso % (Auto) 1.0 (0-2) % Absolute Neuts (auto) 3.8 (1.5-7.7) 10^3/ul Absolute Lymphs (auto) 1.1 (1.0-4.8) 10^3/ul Absolute Monos (auto) 0.7 (0-0.8) 10^3/ul Absolute Eos (auto) 1.0 H (0-0.6) 10^3/ul Absolute Basos (auto) 0.1 (0-0.2) 10^3/ul Absolute Nucleated RBC 0.01 10^3/ul Nucleated RBC % 0.1 INR (Anticoag Therapy) 2.61 H (0.89-1.11) APTT 41.7 H (26.0-36.3) seconds Sodium 142 (133-145) mmol/L Potassium 4.1 (3.5-5.0) mmol/L Chloride 108 (101-111) mmol/L Carbon Dioxide 26 (22-32) mmol/L Anion Gap 8 (2-11) mmol/L BUN 13 (6-24) mg/dL Creatinine 0.83 (0.67-1.17) mg/dL Est GFR ( Amer) 117.8 (>60) Est GFR (Non-Af Amer) 91.6 (>60) BUN/Creatinine Ratio 15.7 (8-20) Glucose 111 H (70-100) mg/dL Lactic Acid (0.5-2.0) mmol/L Calcium 9.3 (8.6-10.3) mg/dL Magnesium 2.0 (1.9-2.7) mg/dL Total Bilirubin 0.90 (0.2-1.0) mg/dL AST 22 (13-39) U/L ALT 13 (7-52) U/L Alkaline Phosphatase 80 (34-104) U/L Total Creatine Kinase 127 (10-223) U/L CK-MB (CK-2) 5.8 (0.6-6.3) ng/mL Troponin I 0.00 (<0.04) ng/mL C-Reactive Protein 17.87 H (< 5.00) mg/L B-Natriuretic Peptide ( - 100) pg/mL Total Protein 8.3 (6.4-8.9) g/dL Albumin 4.2 (3.2-5.2) g/dL Globulin 4.1 H (2-4) g/dL Albumin/Globulin Ratio 1.0 (1-3) Lipase 29 (11.0-82.0) U/L TSH 2.79 (0.34-5.60) mcIU/mL 07/21/16 07/21/16 Range/Units 10:21 10:21 WBC (3.5-10.8) 10^3/ul RBC (4.0-5.4) 10^6/ul Hgb (14.0-18.0) g/dl Hct (42-52) % MCV (80-94) fL MCH (27-31) pg MCHC (31-36) g/dl RDW (10.5-15) % Plt Count (150-450) 10^3/ul MPV (7.4-10.4) um3 Neut % (Auto) (38-83) % Lymph % (Auto) (25-47) % [place] % (Auto) (1-9) % Eos % (Auto) (0-6) % Baso % (Auto) (0-2) % Absolute Neuts (auto) (1.5-7.7) 10^3/ul Absolute Lymphs (auto) (1.0-4.8) 10^3/ul Absolute Monos (auto) (0-0.8) 10^3/ul Absolute Eos (auto) (0-0.6) 10^3/ul Absolute Basos (auto) (0-0.2) 10^3/ul Absolute Nucleated RBC 10^3/ul Nucleated RBC % INR (Anticoag Therapy) (0.89-1.11) APTT (26.0-36.3) seconds Sodium (133-145) mmol/L Potassium (3.5-5.0) mmol/L Chloride (101-111) mmol/L Carbon Dioxide (22-32) mmol/L Anion Gap (2-11) mmol/L BUN (6-24) mg/dL Creatinine (0.67-1.17) mg/dL Est GFR ( Amer) (>60) Est GFR (Non-Af Amer) (>60) BUN/Creatinine Ratio (8-20) Glucose (70-100) mg/dL Lactic Acid 1.2 (0.5-2.0) mmol/L Calcium (8.6-10.3) mg/dL Magnesium (1.9-2.7) mg/dL Total Bilirubin (0.2-1.0) mg/dL AST (13-39) U/L ALT (7-52) U/L Alkaline Phosphatase (34-104) U/L Total Creatine Kinase (10-223) U/L CK-MB (CK-2) (0.6-6.3) ng/mL Troponin I (<0.04) ng/mL C-Reactive Protein (< 5.00) mg/L B-Natriuretic Peptide 174 H ( - 100) pg/mL Total Protein (6.4-8.9) g/dL Albumin (3.2-5.2) g/dL Globulin (2-4) g/dL Albumin/Globulin Ratio (1-3) Lipase (11.0-82.0) U/L TSH (0.34-5.60) mcIU/mL Microbiology and Other Data: Microbiology 07/21/16 15:33 Legionella Urinary Antigen - Final Urine Negative Legionella Streptococcus pneumoniae Ag Screen - Final Negative S. pneumo Antigen 07/21/16 14:35 Gram Stain - Final Sputum Expectorated Assess/Plan/Problems-Billing Mr Gamez is a 70 yo M who has a h/o COPD, chronic afib, h/o recurrent LOC episodes felt to be either seizure vs syncope who presented to the ER with c/o SOB, cough and chest pain. - Patient Problems (1) Chest pain Current Visit: Yes Status: Acute Code(s): R07.9 - CHEST PAIN, UNSPECIFIED SNOMED Code(s): 25078948 Comment: Non cardiac chest pain. He ruled out with serial troponins. Likely chest pain is secondary to coughing. (2) SOB (shortness of breath) Current Visit: Yes Status: Acute Code(s): R06.02 - SHORTNESS OF BREATH SNOMED Code(s): 646035867 Comment: While patient feels very SOB he appears to be very comfortable. He has no crackles, wheezes or diminished breath sounds on exam. I will ask for Dr. Kumar to evaluate the patient in the hospital given his h/o COPD. ? viral illness that caused him to decompensate. There are no signs of COPD exacerbation at this time though he was reportedly wheezy yesterday. Continue prednisone but taper rapidly and continue only azithromycin-no signs of pneumonia. I also question if his progressive SOB may just be secondary to worsening COPD. (3) Cough Current Visit: Yes Status: Acute Code(s): R05 - COUGH SNOMED Code(s): 32418756 Comment: ? cause. He states he saw ENT without any answers being given. ? GERD as cause-will try adding omeprazole to see if it helps. Dr. Kumar is to see the patient later today. (4) Atrial fibrillation Current Visit: Yes Status: Acute Code(s): I48.91 - UNSPECIFIED ATRIAL FIBRILLATION SNOMED Code(s): 10063794 Comment: This is chronic. Conitnue home medication regimen. Hold coumadin tonight as he is supratherapeutic (possibly secondary to levaquin/azithromycin administration). Follow up INR tomorrow. (5) Gout Current Visit: Yes Status: Acute Code(s): M10.9 - GOUT, UNSPECIFIED SNOMED Code(s): 51083140 Comment: Continue allopurinol. (6) History of bladder cancer Current Visit: Yes Status: Acute Code(s): Z85.51 - PERSONAL HISTORY OF MALIGNANT NEOPLASM OF BLADDER SNOMED Code(s): 909232671 Comment: Diagnosis noted. (7) DVT prophylaxis Current Visit: Yes Status: Acute Code(s): GTC1988 - SNOMED Code(s): 224297912 Comment: Coumadin (8) Full code status Current Visit: Yes Status: Acute Code(s): Z78.9 - OTHER SPECIFIED HEALTH STATUS SNOMED Code(s): 539530854
[2016-07-22] MEDS ORDERED: HYDROcodone/ACETAMIN 5-325 MG* 1 TAB PO PRN (12:24)
[2016-07-22] MEDS: Azithromycin IV(*) 500 MG in NS 0.9% 250 ML* 250 ML IVPB SCH (12:28)
[2016-07-22] MEDS ORDERED: Furosemide IV* 10 MG/ML VIAL (40 MG) IV ONE (12:50)
[2016-07-22] MEDS ORDERED: Docusate CAP* 100 MG PO PRN (12:50)
--- NOTE | 2016-07-22 15:02 | CONS ---
PULMONARY CONSULTATION REPORT: DATE OF CONSULT: 07/22/16 CONSULTATION REQUESTED BY: Dr. Mathew. REASON FOR CONSULTATION: Evaluation of shortness of breath. HISTORY OF PRESENT ILLNESS: The patient is a 70-year-old male with history of COPD, AFib, bladder cancer status post resection and urostomy, history of CVA x2 , gout. The patient came into the emergency room for evaluation of worsening shortness of breath and chest tightness. The patient has been having congestion and runny nose preceding this worsening shortness of breath for a couple of weeks. Symptoms have gradually gotten worse and has resulted in significant shortness of breath and chest tightness and inability to take deep breath. The patient also reported feeling nauseous and constipated. The patient denies any abdominal pain. The patient was evaluated in the ER and was admitted for management of acute COPD exacerbation. The patient was treated with high-dose of Solu-Medrol and was transitioned to prednisone currently. He was also given nebulizer treatments, azithromycin and Rocephin antibiotics for possible community-acquired pneumonia or bronchitis. Chest x-ray performed on admission did not show evidence of acute airspace opacities or pneumonia. The patient did not improve since admission and he still continues to have significant dyspnea at this time. He is on Advair and Ventolin as needed as outpatient. PAST MEDICAL HISTORY: 1. AFib. 2. CVA x2. 3. Gout. 4. COPD. 5. Bladder cancer status post resection. 6. Hypertension. PAST SURGICAL HISTORY: Urostomy. MEDICATIONS: 1. Warfarin. 2. Gregory. 3. Digoxin. 4. Ventolin. 5. Advair. 6. Diltiazem. 7. Allopurinol. 8. Mometasone. ALLERGIES: 1. IODINE. 2. AZITHROMYCIN. 3. LYRICA. FAMILY HISTORY: Malignancy in both parents. SOCIAL HISTORY: Former smoker, quit in the past. Drinks about 4 to 5 beers a day. REVIEW OF SYSTEMS: Denied fevers or chills. Denied loss of weight or appetite recently. The patient denied ear discharge, rhinorrhea, double vision, sore throat. Reported nausea and constipation, although denied vomiting. Cough productive of green phlegm. Has history of bladder cancer; however, denied any issues with his urostomy. PHYSICAL EXAM: General: The patient in bed in no apparent distress. Vital Signs: Temperature 98.8, tachycardic with heart rate of 103 beats per minute, respiratory rate 16 per minute, O2 sat 95% on room air, blood pressure 120/64. HEENT: Pupils equal, reactive to light. Mucous membranes moist. Neck: Supple. No JVD. Lungs: Scattered rhonchi bilaterally. Cardiovascular: S1, S2 present, tachycardic. No rubs or gallops. Abdomen: Soft, nontender, nondistended. Bowel sounds present. Extremities: 2+ bilaterally, no edema. Musculoskeletal: Normal range of motion, good strength. Skin: No rash or bruise. Neurologic: Alert, awake, oriented x3. No focal deficits. DIAGNOSTIC STUDIES/LAB DATA: WBC count 6.0, hemoglobin 12.6, hematocrit 38, platelet count 149. INR 3.32. Sodium 139, potassium 4.3, chloride 109, bicarb 23, BUN 15, creatinine 0.73, lactic acid 1.2. BNP elevated at 174. Troponins within normal limits. Urine showed 1+ protein and 3+ leukocyte esterase and 2+ wbc's. Chest x-ray as described above in HPI. IMPRESSION AND RECOMMENDATIONS: 70-year-old male with history of chronic obstructive pulmonary disease, atrial fibrillation, admitted with worsening shortness of breath, being treated for acute chronic obstructive pulmonary disease exacerbation with no symptomatic improvement since admission in spite of optimal therapy. Suspect possible component of heart failure. He is on prednisone, received fluids and IV Solu-Medrol since admission, which might have resulted in fluid overload. I would recommend dose of Lasix. The patient is also tachycardic, might have to increase the diltiazem, if he still continues to be tachycardic. The patient also reported being constipated, might need a bowel regimen. He was on a narcotic pain medications or was receiving upon admission, which might have resulted in constipation, nausea and thereby decreased reserve due to pushing up of diaphragm from abdominal contents resulting in more shortness of breath. I do not suspect pulmonary embolism as he is on therapeutic dose of warfarin. His main concern appears to be post nasal drip and cough as a result. Chest x- ray did not reveal any acute opacities. His hemoglobin is slightly on the lower end, will need to monitor closely given that he is on Coumadin. Anemia might also be adding to his shortness of breath. Troponins are within normal limits. I do not see any stress on the heart at this time. No indication for transfusion at this time. Please continue to closely watch the hemoglobin and monitor for any signs of bleeding. I have discussed pathophysiology of chronic obstructive pulmonary disease and current treatment with him. Thank you for allowing me to participate in the care of your patient. Will follow up with you. D/w Dr Mathew [id number]/[facility] #: [id number] MTDOdette
[2016-07-22] MEDS ORDERED: Diltiazem TAB* 60 MG PO ONE (17:57)
--- NOTE | 2016-07-22 21:14 | RAD ---
HISTORY: Bloating COMPARISONS: None VIEWS: Frontal views of the abdomen. FINDINGS: BOWEL: There is a nonspecific bowel gas pattern, with nondilated small bowel gas noted. There is a large amount of stool within the colon. CALCULI: There are no abnormal calculi. Surgical clips are noted in the pelvis. BONES AND SOFT TISSUES: There is a scoliotic curvature of the spine. Degenerative changes are noted OTHER FINDINGS: The lung bases are clear. There is no subphrenic gas. IMPRESSION: NONSPECIFIC BOWEL GAS PATTERN.
[2016-07-23] MEDS: Omeprazole CAP* 20 MG PO SCH (05:21)
[2016-07-23 05:31] LABS: Hematocrit 36 % (42-52); Mean Corpuscular HGB Conc 33 g/dl (31-36); Mean Corpuscular Hemoglobin 35 pg (27-31); Mean Platelet Volume 10 um3 (7.4-10.4); Red Blood Count 3.43 10^6/ul (4.0-5.4); Red Cell Distribution Width 15 % (10.5-15); White Blood Count 11.8 10^3/ul (3.5-10.8)
[2016-07-23 05:45] LABS: Comments Flag Yes
[2016-07-23 05:46] LABS: Mean Corpuscular Volume 106 fL (80-94)
[2016-07-23] MEDS: Mometasone/Formoter 200/5 MDI INH SCH ×2 (07:48→20:17)
[2016-07-23] MEDS: Allopurinol TAB* 300 MG PO SCH (08:41)
[2016-07-23] MEDS: predniSONE TAB* 20 MG PO SCH (08:41)
[2016-07-23] MEDS: Folic Acid TAB* 1 MG PO SCH (08:41)
[2016-07-23] MEDS: Multivitamins/Minerals TAB PO SCH (08:41)
[2016-07-23] MEDS: Diltiazem CD CAP* 120 MG PO SCH (08:41)
[2016-07-23] MEDS: Thiamine TAB* 100 MG TAB PO SCH (08:41)
[2016-07-23] MEDS ORDERED: Magnesium Hydroxide LIQ* 30 ML UDC PO ONE ×2 (12:23→16:09)
[2016-07-23] MEDS: Metoprolol Succinate XL TAB* 100 MG PO SCH (12:34)
[2016-07-23] MEDS ORDERED: Digoxin TAB* 0.125 MG PO SCH (12:34)
--- NOTE | 2016-07-23 12:37 | PN ---
Subjective Date of Service: 07/23/16 Interval History: Pt is feeling lousy. He states his abdomen is very distended and he feels that he needs to have a BM but can't. He request MOM now. Additionally he still feels SOB. He thinks his HR being elevated is what has led to his SOB but I questioned him on this as he came in with SOB but a normal HR-despite this he still feels his HR is contributing to his SOB. Family History: Unchanged from Admission Social History: Unchanged from Admission Past Medical History: Unchanged from Admission Objective Active Medications: Acetaminophen (Tylenol Tab*) 650 mg PO Q4H PRN PRN Reason: FEVER/PAIN Last Admin: 07/23/16 08:48 Dose: 650 mg Hydrocodone Bitart/Acetaminophen ([place] 5-325 Tab*) 1 tab PO Q6H PRN PRN Reason: PAIN Albuterol (Ventolin 2.5 Mg/3 Ml Neb.Clementina*) 2.5 mg INH Q2H PRN PRN Reason: SOB/WHEEZING Allopurinol (Zyloprim Tab*) 300 mg PO DAILY [facility] Last Admin: 07/23/16 08:41 Dose: 300 mg Digoxin (Lanoxin Tab*) 0.125 mg PO MOWEFR [facility] Diltiazem HCl (Cardizem Cd Cap*) 120 mg PO DAILY [facility] Last Admin: 07/23/16 08:41 Dose: 120 mg Docusate Sodium (Colace Cap*) 100 mg PO DAILY PRN PRN Reason: CONSTIPATION Folic Acid (Folvite Tab*) 1 mg PO DAILY [facility] Last Admin: 07/23/16 08:41 Dose: 1 mg Azithromycin 500 mg/ Sodium (Chloride) 250 mls @ 250 mls/hr IVPB Q24H [facility] Last Admin: 07/22/16 12:28 Dose: 250 mls/hr Metoprolol Succinate (Toprol Xl Tab*) 100 mg PO DAILY [facility] Mometasone Furoate/Formoterol Fumar (Dulera 200/5 Mdi*) 2 puff INH BID [facility] Last Admin: 07/23/16 07:48 Dose: 2 puff Multivitamins/Minerals (Theragran/Minerals Tab*) 1 tab PO DAILY [facility] Last Admin: 07/23/16 08:41 Dose: 1 tab Omeprazole (Prilosec Cap*) 20 mg PO DAILY@0600 [facility] Last Admin: 07/23/16 05:21 Dose: 20 mg Ondansetron HCl (Zofran Inj*) 4 mg IV Q6H PRN PRN Reason: NAUSEA Prednisone (Deltasone Tab*) 40 mg PO DAILY [facility] Last Admin: 07/23/16 08:41 Dose: 40 mg Thiamine HCl (Vitamin B-1 Tab*) 100 mg PO DAILY [facility] Last Admin: 07/23/16 08:41 Dose: 100 mg Vital Signs 07/22/16 07/22/16 07/22/16 15:48 20:00 21:52 Temperature 98.3 F Pulse Rate 120 Respiratory 16 16 16 Rate Blood Pressure 121/68 (mmHg) O2 Sat by Pulse 95 97 Oximetry 07/22/16 07/23/16 07/23/16 23:32 00:37 03:38 Temperature 98.2 F 97.5 F 97.7 F Pulse Rate 91 79 88 Respiratory 16 16 16 Rate Blood Pressure 147/72 127/69 142/63 (mmHg) O2 Sat by Pulse 98 97 97 Oximetry 07/23/16 07/23/16 07/23/16 07:29 07:40 07:48 Temperature 98.0 F Pulse Rate 89 88 Respiratory 16 18 Rate Blood Pressure 136/73 (mmHg) O2 Sat by Pulse 97 96 Oximetry 07/23/16 07/23/16 07:52 11:01 Temperature 98.3 F Pulse Rate 88 90 Respiratory 18 Rate Blood Pressure 124/64 (mmHg) O2 Sat by Pulse 96 97 Oximetry Oxygen Devices in Use Now: None Appearance: Elderly male sitting on the edge of the bed, NAD Eyes: No Scleral Icterus Ears/Nose/Mouth/Throat: Mucous Membranes Moist Respiratory: Symmetrical Chest Expansion and Respiratory Effort, Clear to Auscultation Cardiovascular: NL Sounds; No Murmurs; No JVD, No Edema, - - irregularly irregular, tachycardic Abdominal: - - BS+ soft, NT, moderately distended and tympanic to percussion Extremities: No Clubbing, Cyanosis Skin: No Rash or Ulcers, No Nodules or Sclerosis Neurological: Alert and Oriented x 3 Result Diagrams: 07/23/16 05:06 07/22/16 05:37 Additional Lab and Data: Lab Results 07/21/16 07/21/16 07/21/16 Range/Units 10:21 10:21 10:21 WBC 6.6 (3.5-10.8) 10^3/ul RBC 4.01 (4.0-5.4) 10^6/ul Hgb 14.1 (14.0-18.0) g/dl Hct 43 (42-52) % MCV 106 H (80-94) fL MCH 35 H (27-31) pg MCHC 33 (31-36) g/dl RDW 15 (10.5-15) % Plt Count 162 (150-450) 10^3/ul MPV 9 (7.4-10.4) um3 Neut % (Auto) 57.0 (38-83) % Lymph % (Auto) 16.6 L (25-47) % [place] % (Auto) 10.4 H (1-9) % Eos % (Auto) 15.0 H (0-6) % Baso % (Auto) 1.0 (0-2) % Absolute Neuts (auto) 3.8 (1.5-7.7) 10^3/ul Absolute Lymphs (auto) 1.1 (1.0-4.8) 10^3/ul Absolute Monos (auto) 0.7 (0-0.8) 10^3/ul Absolute Eos (auto) 1.0 H (0-0.6) 10^3/ul Absolute Basos (auto) 0.1 (0-0.2) 10^3/ul Absolute Nucleated RBC 0.01 10^3/ul Nucleated RBC % 0.1 INR (Anticoag Therapy) 2.61 H (0.89-1.11) APTT 41.7 H (26.0-36.3) seconds Sodium 142 (133-145) mmol/L Potassium 4.1 (3.5-5.0) mmol/L Chloride 108 (101-111) mmol/L Carbon Dioxide 26 (22-32) mmol/L Anion Gap 8 (2-11) mmol/L BUN 13 (6-24) mg/dL Creatinine 0.83 (0.67-1.17) mg/dL Est GFR ( Amer) 117.8 (>60) Est GFR (Non-Af Amer) 91.6 (>60) BUN/Creatinine Ratio 15.7 (8-20) Glucose 111 H (70-100) mg/dL Lactic Acid (0.5-2.0) mmol/L Calcium 9.3 (8.6-10.3) mg/dL Magnesium 2.0 (1.9-2.7) mg/dL Total Bilirubin 0.90 (0.2-1.0) mg/dL AST 22 (13-39) U/L ALT 13 (7-52) U/L Alkaline Phosphatase 80 (34-104) U/L Total Creatine Kinase 127 (10-223) U/L CK-MB (CK-2) 5.8 (0.6-6.3) ng/mL Troponin I 0.00 (<0.04) ng/mL C-Reactive Protein 17.87 H (< 5.00) mg/L B-Natriuretic Peptide ( - 100) pg/mL Total Protein 8.3 (6.4-8.9) g/dL Albumin 4.2 (3.2-5.2) g/dL Globulin 4.1 H (2-4) g/dL Albumin/Globulin Ratio 1.0 (1-3) Lipase 29 (11.0-82.0) U/L TSH 2.79 (0.34-5.60) mcIU/mL 07/21/16 07/21/16 Range/Units 10:21 10:21 WBC (3.5-10.8) 10^3/ul RBC (4.0-5.4) 10^6/ul Hgb (14.0-18.0) g/dl Hct (42-52) % MCV (80-94) fL MCH (27-31) pg MCHC (31-36) g/dl RDW (10.5-15) % Plt Count (150-450) 10^3/ul MPV (7.4-10.4) um3 Neut % (Auto) (38-83) % Lymph % (Auto) (25-47) % [place] % (Auto) (1-9) % Eos % (Auto) (0-6) % Baso % (Auto) (0-2) % Absolute Neuts (auto) (1.5-7.7) 10^3/ul Absolute Lymphs (auto) (1.0-4.8) 10^3/ul Absolute Monos (auto) (0-0.8) 10^3/ul Absolute Eos (auto) (0-0.6) 10^3/ul Absolute Basos (auto) (0-0.2) 10^3/ul Absolute Nucleated RBC 10^3/ul Nucleated RBC % INR (Anticoag Therapy) (0.89-1.11) APTT (26.0-36.3) seconds Sodium (133-145) mmol/L Potassium (3.5-5.0) mmol/L Chloride (101-111) mmol/L Carbon Dioxide (22-32) mmol/L Anion Gap (2-11) mmol/L BUN (6-24) mg/dL Creatinine (0.67-1.17) mg/dL Est GFR ( Amer) (>60) Est GFR (Non-Af Amer) (>60) BUN/Creatinine Ratio (8-20) Glucose (70-100) mg/dL Lactic Acid 1.2 (0.5-2.0) mmol/L Calcium (8.6-10.3) mg/dL Magnesium (1.9-2.7) mg/dL Total Bilirubin (0.2-1.0) mg/dL AST (13-39) U/L ALT (7-52) U/L Alkaline Phosphatase (34-104) U/L Total Creatine Kinase (10-223) U/L CK-MB (CK-2) (0.6-6.3) ng/mL Troponin I (<0.04) ng/mL C-Reactive Protein (< 5.00) mg/L B-Natriuretic Peptide 174 H ( - 100) pg/mL Total Protein (6.4-8.9) g/dL Albumin (3.2-5.2) g/dL Globulin (2-4) g/dL Albumin/Globulin Ratio (1-3) Lipase (11.0-82.0) U/L TSH (0.34-5.60) mcIU/mL Microbiology and Other Data: Microbiology 07/21/16 15:33 Legionella Urinary Antigen - Final Urine Negative Legionella Streptococcus pneumoniae Ag Screen - Final Negative S. pneumo Antigen 07/21/16 14:35 Gram Stain - Final Sputum Expectorated Assess/Plan/Problems-Billing Mr Gamez is a 70 yo M who has a h/o COPD, chronic afib, h/o recurrent LOC episodes felt to be either seizure vs syncope who presented to the ER with c/o SOB, cough and chest pain. - Patient Problems (1) Chest pain Current Visit: Yes Status: Acute Code(s): R07.9 - CHEST PAIN, UNSPECIFIED SNOMED Code(s): 15557174 Comment: Non cardiac chest pain. He ruled out with serial troponins. Likely chest pain is secondary to coughing. (2) SOB (shortness of breath) Current Visit: Yes Status: Acute Code(s): R06.02 - SHORTNESS OF BREATH SNOMED Code(s): 777726216 Comment: Pt still c/o SOB but again looks very comfortable on RA. He has ambulated around the floor on RA without visible distress. Will work on getting HR under control (his metoprolol had been inadvertantly left off his home med list) and see if that helps his breathing. He has what looks to be post nasal drip (? secondary to allergies) that is bothering him. No wheezing on exam, no tightness. Continue prednisone and start tapering tomorrow. I think he will be ready for d/c home later today if his HR comes under control and he has a BM. (3) Cough Current Visit: Yes Status: Acute Code(s): R05 - COUGH SNOMED Code(s): 28678910 Comment: ? cause- GERD vs post nasal drip. Continue to treat for possible GERD with omeprazole. (4) Atrial fibrillation Current Visit: Yes Status: Acute Code(s): I48.91 - UNSPECIFIED ATRIAL FIBRILLATION SNOMED Code(s): 01881040 Comment: HR is elevated though he has not been on his usual dose of metoprolol XL-restarting this now. INR still supratherapeutic likely related to receiving azithromycin. (5) Gout Current Visit: Yes Status: Acute Code(s): M10.9 - GOUT, UNSPECIFIED SNOMED Code(s): 59773535 Comment: Continue allopurinol. (6) History of bladder cancer Current Visit: Yes Status: Acute Code(s): Z85.51 - PERSONAL HISTORY OF MALIGNANT NEOPLASM OF BLADDER SNOMED Code(s): 579917683 Comment: Diagnosis noted. (7) DVT prophylaxis Current Visit: Yes Status: Acute Code(s): MXD1337 - SNOMED Code(s): 408528499 Comment: Coumadin-INR is supratherapeutic. (8) Full code status Current Visit: Yes Status: Acute Code(s): Z78.9 - OTHER SPECIFIED HEALTH STATUS SNOMED Code(s): 365536340
[2016-07-23] MEDS: Azithromycin IV(*) 500 MG in NS 0.9% 250 ML* 250 ML IVPB SCH (12:42)
[2016-07-23 13:08] LABS: Ferritin 312.1 ng/mL (24-336)
--- NOTE | 2016-07-23 13:54 | RAD ---
Indication: Cough. CT of the chest was performed without IV contrast. No prior study is available for comparison. Comparison is made with previous chest x-ray dated July 21, 2016. Inferior thyroid lobes are unremarkable. Small 3 to 5 mm lymph nodes are noted in the AP window, right peritracheal space, prevascular space. Heart demonstrates no pericardial effusion. Coronary artery calcifications are noted. The trachea and major bronchi appear patent. Lung casas demonstrate no evidence of alveolar consolidation. No pneumothorax is noted. The visualized bony structures are grossly unremarkable. Atherosclerotic aorta is noted. The visualized abdominal organs are unremarkable. IMPRESSION: No pulmonary lesions are identified. Atherosclerotic aorta.
--- NOTE | 2016-07-23 16:00 | PN ---
Progress Note - Progress Note Note: Pt seen and examined at bedside. Pt reports no cahnge in his symptoms Active Medications Generic Name Dose Route Start Last Admin Trade Name Freq PRN Reason Stop Dose Admin Acetaminophen 650 mg 07/21/16 12:39 07/23/16 08:48 Tylenol Tab* PO 650 mg Q4H PRN Administration FEVER/PAIN Hydrocodone Bitart/Acetaminophen 1 tab 07/22/16 12:24 [place] 5-325 Tab* PO Q6H PRN PAIN Albuterol 2.5 mg 07/21/16 12:39 Ventolin 2.5 Mg/3 Ml Neb.Clementina* INH Q2H PRN SOB/WHEEZING Allopurinol 300 mg 07/22/16 09:00 07/23/16 08:41 Zyloprim Tab* PO 300 mg DAILY [facility] Administration Digoxin 0.125 mg 07/23/16 12:34 07/23/16 12:33 Lanoxin Tab* PO 0.125 mg MOWEFR STEVEN Administration Diltiazem HCl 120 mg 07/22/16 09:00 07/23/16 08:41 Cardizem Cd Cap* PO 120 mg DAILY [facility]EN Administration Docusate Sodium 100 mg 07/22/16 12:50 Colace Cap* PO DAILY PRN CONSTIPATION Folic Acid 1 mg 07/22/16 09:00 07/23/16 08:41 Folvite Tab* PO 1 mg DAILY [facility] Administration Azithromycin 500 mg/ Sodium 250 mls @ 250 mls/hr 07/21/16 13:00 07/23/16 12: 42 Chloride IVPB 250 mls/hr Q24H [facility]EVEN Administration Metoprolol Succinate 100 mg 07/23/16 12:00 07/23/16 12:34 Toprol Xl Tab* PO 100 mg DAILY [facility] Administration Mometasone Furoate/Formoterol Fumar 2 puff 07/21/16 21:00 07/23/16 07:48 Dulera 200/5 Mdi* INH 2 puff BID [facility]EVEN Administration Multivitamins/Minerals 1 tab 07/22/16 09:00 07/23/16 08:41 Theragran/Minerals Tab* PO 1 tab DAILY [facility] Administration Omeprazole 20 mg 07/23/16 06:00 07/23/16 05:21 Prilosec Cap* PO 20 mg DAILY@0600 [facility] Administration Ondansetron HCl 4 mg 07/21/16 12:39 Zofran Inj* IV Q6H PRN NAUSEA Prednisone 40 mg 07/23/16 09:00 07/23/16 08:41 Deltasone Tab* PO 40 mg DAILY [facility] Administration Thiamine HCl 100 mg 07/22/16 09:00 07/23/16 08:41 Vitamin B-1 Tab* PO 100 mg DAILY [facility] Administration Vital Signs Temp Pulse Resp BP Pulse Ox 98.3 F 115 18 124/64 97 07/23/16 11:01 07/23/16 12:33 07/23/16 11:01 07/23/16 11:01 07/23/16 11:01 Gen: Pt sitting on the edge of the bed in NAD HEENT: No Scleral Icterus, Mucous Membranes Moist Respiratory: Symmetrical Chest Expansion and Respiratory Effort, Clear to Auscultation Cardiovascular: S1, S2+, No JVD, No Edema, irregularly irregular Abdominal: BS+ soft, NT, moderately distended and tympanic to percussion Extremities: No Clubbing, Cyanosis Skin: No Rash or Ulcers, No Nodules or Sclerosis Neurological: Alert and Oriented x 3 Laboratory Results - last 24 hr 07/23/16 07/23/16 07/23/16 05:06 05:06 05:06 WBC 11.8 H RBC 3.43 L Hgb 12.0 L Hct 36 L MCV 106 H MCH 35 H MCHC 33 RDW 15 Plt Count 155 MPV 10 INR (Anticoag Therapy) 3.60 H Iron 58 TIBC 356 % Saturation 16 Unsat Iron Binding 298 Ferritin 312.1 Vitamin B12 374 I/R: 70 y o m with h/o COPD, A.fib a/w worsening SOB, cough CT chest reviewed- No pulmonary parenchymal abnormalities noted, no endobronchial lesions noted Cough likely secondary to PND c/w nebs received Lasix yesterday c/o constipation, bloating, receiving milk of magnesia c/w bronchodilators
[2016-07-24] MEDS: Omeprazole CAP* 20 MG PO SCH (05:37)
[2016-07-24 07:41] VITALS: BP 137/87
[2016-07-24] MEDS: Mometasone/Formoter 200/5 MDI INH SCH (08:14)
[2016-07-24] MEDS: predniSONE TAB* 20 MG PO SCH (09:12)
[2016-07-24] MEDS: Allopurinol TAB* 300 MG PO SCH (09:13)
[2016-07-24] MEDS: Folic Acid TAB* 1 MG PO SCH (09:13)
[2016-07-24] MEDS: Thiamine TAB* 100 MG TAB PO SCH (09:13)
[2016-07-24] MEDS: Metoprolol Succinate XL TAB* 100 MG PO SCH (09:14)
[2016-07-24] MEDS: Multivitamins/Minerals TAB PO SCH (09:14)
[2016-07-24] MEDS: Diltiazem CD CAP* 120 MG PO SCH (09:14)
--- NOTE | 2016-07-24 09:24 | PN ---
Subjective Date of Service: 07/24/16 Interval History: Pt is feeling better today. He states he has had 6 BMs. His breathing is better today. He thinks his cough has subsided some but he still has a slight cough. Family History: Unchanged from Admission Social History: Unchanged from Admission Past Medical History: Unchanged from Admission Objective Active Medications: Acetaminophen (Tylenol Tab*) 650 mg PO Q4H PRN PRN Reason: FEVER/PAIN Last Admin: 07/23/16 08:48 Dose: 650 mg Hydrocodone Bitart/Acetaminophen ([place] 5-325 Tab*) 1 tab PO Q6H PRN PRN Reason: PAIN Albuterol (Ventolin 2.5 Mg/3 Ml Neb.Clementina*) 2.5 mg INH Q2H PRN PRN Reason: SOB/WHEEZING Allopurinol (Zyloprim Tab*) 300 mg PO DAILY [facility] Last Admin: 07/24/16 09:13 Dose: 300 mg Digoxin (Lanoxin Tab*) 0.125 mg PO MOWEFR [facility] Last Admin: 07/23/16 12:33 Dose: 0.125 mg Diltiazem HCl (Cardizem Cd Cap*) 120 mg PO DAILY [facility] Last Admin: 07/24/16 09:14 Dose: 120 mg Docusate Sodium (Colace Cap*) 100 mg PO DAILY PRN PRN Reason: CONSTIPATION Folic Acid (Folvite Tab*) 1 mg PO DAILY [facility] Last Admin: 07/24/16 09:13 Dose: 1 mg Azithromycin 500 mg/ Sodium (Chloride) 250 mls @ 250 mls/hr IVPB Q24H [facility] Last Admin: 07/23/16 12:42 Dose: 250 mls/hr Metoprolol Succinate (Toprol Xl Tab*) 100 mg PO DAILY [facility] Last Admin: 07/24/16 09:14 Dose: 100 mg Mometasone Furoate/Formoterol Fumar (Dulera 200/5 Mdi*) 2 puff INH BID [facility] Last Admin: 07/24/16 08:14 Dose: 2 puff Multivitamins/Minerals (Theragran/Minerals Tab*) 1 tab PO DAILY [facility] Last Admin: 07/24/16 09:14 Dose: 1 tab Omeprazole (Prilosec Cap*) 20 mg PO DAILY@0600 [facility] Last Admin: 07/24/16 05:37 Dose: 20 mg Ondansetron HCl (Zofran Inj*) 4 mg IV Q6H PRN PRN Reason: NAUSEA Prednisone (Deltasone Tab*) 40 mg PO DAILY [facility] Last Admin: 07/24/16 09:12 Dose: 40 mg Thiamine HCl (Vitamin B-1 Tab*) 100 mg PO DAILY [facility] Last Admin: 07/24/16 09:13 Dose: 100 mg Vital Signs 07/23/16 07/23/16 07/23/16 11:01 12:33 16:25 Temperature 98.3 F 97.8 F Pulse Rate 90 115 101 Respiratory 18 20 Rate Blood Pressure 124/64 131/92 (mmHg) O2 Sat by Pulse 97 98 Oximetry 07/23/16 07/23/16 07/23/16 19:25 20:00 20:18 Temperature 98.0 F Pulse Rate 90 83 Respiratory 20 15 15 Rate Blood Pressure 145/91 (mmHg) O2 Sat by Pulse 97 93 Oximetry 07/24/16 07/24/16 07/24/16 00:53 03:46 07:28 Temperature 97.8 F 97.1 F 98.8 F Pulse Rate 80 85 77 Respiratory 16 16 16 Rate Blood Pressure 129/69 133/69 137/87 (mmHg) O2 Sat by Pulse 97 98 98 Oximetry 07/24/16 07/24/16 08:17 09:05 Temperature Pulse Rate 83 83 Respiratory 16 16 Rate Blood Pressure (mmHg) O2 Sat by Pulse 95 95 Oximetry Oxygen Devices in Use Now: None Appearance: Elderly male standing in the hallway, NAD Eyes: No Scleral Icterus Ears/Nose/Mouth/Throat: Mucous Membranes Moist Respiratory: Symmetrical Chest Expansion and Respiratory Effort, Clear to Auscultation Cardiovascular: NL Sounds; No Murmurs; No JVD, No Edema, - - irregularly irregular, controlled rate Abdominal: NL Sounds; No Tenderness; No Distention Extremities: No Clubbing, Cyanosis Skin: No Rash or Ulcers, No Nodules or Sclerosis Neurological: Alert and Oriented x 3 Result Diagrams: 07/23/16 05:06 07/22/16 05:37 Additional Lab and Data: Lab Results 07/21/16 07/21/16 07/21/16 Range/Units 10:21 10:21 10:21 WBC 6.6 (3.5-10.8) 10^3/ul RBC 4.01 (4.0-5.4) 10^6/ul Hgb 14.1 (14.0-18.0) g/dl Hct 43 (42-52) % MCV 106 H (80-94) fL MCH 35 H (27-31) pg MCHC 33 (31-36) g/dl RDW 15 (10.5-15) % Plt Count 162 (150-450) 10^3/ul MPV 9 (7.4-10.4) um3 Neut % (Auto) 57.0 (38-83) % Lymph % (Auto) 16.6 L (25-47) % [place] % (Auto) 10.4 H (1-9) % Eos % (Auto) 15.0 H (0-6) % Baso % (Auto) 1.0 (0-2) % Absolute Neuts (auto) 3.8 (1.5-7.7) 10^3/ul Absolute Lymphs (auto) 1.1 (1.0-4.8) 10^3/ul Absolute Monos (auto) 0.7 (0-0.8) 10^3/ul Absolute Eos (auto) 1.0 H (0-0.6) 10^3/ul Absolute Basos (auto) 0.1 (0-0.2) 10^3/ul Absolute Nucleated RBC 0.01 10^3/ul Nucleated RBC % 0.1 INR (Anticoag Therapy) 2.61 H (0.89-1.11) APTT 41.7 H (26.0-36.3) seconds Sodium 142 (133-145) mmol/L Potassium 4.1 (3.5-5.0) mmol/L Chloride 108 (101-111) mmol/L Carbon Dioxide 26 (22-32) mmol/L Anion Gap 8 (2-11) mmol/L BUN 13 (6-24) mg/dL Creatinine 0.83 (0.67-1.17) mg/dL Est GFR ( Amer) 117.8 (>60) Est GFR (Non-Af Amer) 91.6 (>60) BUN/Creatinine Ratio 15.7 (8-20) Glucose 111 H (70-100) mg/dL Lactic Acid (0.5-2.0) mmol/L Calcium 9.3 (8.6-10.3) mg/dL Magnesium 2.0 (1.9-2.7) mg/dL Total Bilirubin 0.90 (0.2-1.0) mg/dL AST 22 (13-39) U/L ALT 13 (7-52) U/L Alkaline Phosphatase 80 (34-104) U/L Total Creatine Kinase 127 (10-223) U/L CK-MB (CK-2) 5.8 (0.6-6.3) ng/mL Troponin I 0.00 (<0.04) ng/mL C-Reactive Protein 17.87 H (< 5.00) mg/L B-Natriuretic Peptide ( - 100) pg/mL Total Protein 8.3 (6.4-8.9) g/dL Albumin 4.2 (3.2-5.2) g/dL Globulin 4.1 H (2-4) g/dL Albumin/Globulin Ratio 1.0 (1-3) Lipase 29 (11.0-82.0) U/L TSH 2.79 (0.34-5.60) mcIU/mL 07/21/16 07/21/16 Range/Units 10:21 10:21 WBC (3.5-10.8) 10^3/ul RBC (4.0-5.4) 10^6/ul Hgb (14.0-18.0) g/dl Hct (42-52) % MCV (80-94) fL MCH (27-31) pg MCHC (31-36) g/dl RDW (10.5-15) % Plt Count (150-450) 10^3/ul MPV (7.4-10.4) um3 Neut % (Auto) (38-83) % Lymph % (Auto) (25-47) % [place] % (Auto) (1-9) % Eos % (Auto) (0-6) % Baso % (Auto) (0-2) % Absolute Neuts (auto) (1.5-7.7) 10^3/ul Absolute Lymphs (auto) (1.0-4.8) 10^3/ul Absolute Monos (auto) (0-0.8) 10^3/ul Absolute Eos (auto) (0-0.6) 10^3/ul Absolute Basos (auto) (0-0.2) 10^3/ul Absolute Nucleated RBC 10^3/ul Nucleated RBC % INR (Anticoag Therapy) (0.89-1.11) APTT (26.0-36.3) seconds Sodium (133-145) mmol/L Potassium (3.5-5.0) mmol/L Chloride (101-111) mmol/L Carbon Dioxide (22-32) mmol/L Anion Gap (2-11) mmol/L BUN (6-24) mg/dL Creatinine (0.67-1.17) mg/dL Est GFR ( Amer) (>60) Est GFR (Non-Af Amer) (>60) BUN/Creatinine Ratio (8-20) Glucose (70-100) mg/dL Lactic Acid 1.2 (0.5-2.0) mmol/L Calcium (8.6-10.3) mg/dL Magnesium (1.9-2.7) mg/dL Total Bilirubin (0.2-1.0) mg/dL AST (13-39) U/L ALT (7-52) U/L Alkaline Phosphatase (34-104) U/L Total Creatine Kinase (10-223) U/L CK-MB (CK-2) (0.6-6.3) ng/mL Troponin I (<0.04) ng/mL C-Reactive Protein (< 5.00) mg/L B-Natriuretic Peptide 174 H ( - 100) pg/mL Total Protein (6.4-8.9) g/dL Albumin (3.2-5.2) g/dL Globulin (2-4) g/dL Albumin/Globulin Ratio (1-3) Lipase (11.0-82.0) U/L TSH (0.34-5.60) mcIU/mL Microbiology and Other Data: Microbiology 07/21/16 15:33 Legionella Urinary Antigen - Final Urine Negative Legionella Streptococcus pneumoniae Ag Screen - Final Negative S. pneumo Antigen 07/21/16 14:35 Gram Stain - Final Sputum Expectorated Assess/Plan/Problems-Billing Mr Gamez is a 70 yo M who has a h/o COPD, chronic afib, h/o recurrent LOC episodes felt to be either seizure vs syncope who presented to the ER with c/o SOB, cough and chest pain. - Patient Problems (1) Chest pain Current Visit: Yes Status: Acute Code(s): R07.9 - CHEST PAIN, UNSPECIFIED SNOMED Code(s): 82686732 Comment: Non cardiac chest pain. (2) SOB (shortness of breath) Current Visit: Yes Status: Acute Code(s): R06.02 - SHORTNESS OF BREATH SNOMED Code(s): 595146396 Comment: Improved today. Taper prednsione. Stop azithromycin. (3) Cough Current Visit: Yes Status: Acute Code(s): R05 - COUGH SNOMED Code(s): 86822025 Comment: ? cause- GERD vs post nasal drip. Improving but not completely resolved. He wants to continue on the omeprazole as a trial and he will start an antihistamine for the post nasal drip. (4) Atrial fibrillation Current Visit: Yes Status: Acute Code(s): I48.91 - UNSPECIFIED ATRIAL FIBRILLATION SNOMED Code(s): 51331433 Comment: HR is now contolled. Continue home medication regimen. Resume coumadin tonight and check INR tomorrow. (5) Gout Current Visit: Yes Status: Acute Code(s): M10.9 - GOUT, UNSPECIFIED SNOMED Code(s): 86250688 Comment: Continue allopurinol. (6) History of bladder cancer Current Visit: Yes Status: Acute Code(s): Z85.51 - PERSONAL HISTORY OF MALIGNANT NEOPLASM OF BLADDER SNOMED Code(s): 837267121 Comment: Diagnosis noted. (7) DVT prophylaxis Current Visit: Yes Status: Acute Code(s): GXM0522 - SNOMED Code(s): 718378558 Comment: Coumadin-INR is supratherapeutic. (8) Full code status Current Visit: Yes Status: Acute Code(s): Z78.9 - OTHER SPECIFIED HEALTH STATUS SNOMED Code(s): 264978175
--- NOTE | 2016-07-26 03:33 | DS ---
CC: Dr. Diana Barragan * DISCHARGE SUMMARY: DATE OF ADMISSION: 07/21/16 DATE OF DISCHARGE: 07/24/16 PRIMARY CARE PROVIDER: Dr. Diana Barragan. PRINCIPAL DIAGNOSES: 1. Chronic obstructive pulmonary disease exacerbation. 2. Constipation. SECONDARY DIAGNOSES: 1. Atrial fibrillation. 2. History of bladder cancer. 3. Gout. DISCHARGE MEDICATIONS: 1. Metoprolol XL 100 mg p.o. daily. 2. Coumadin 1 mg p.o. all days except for Thursday when it is 2 mg. 3. [place] 10/325 one tab p.o. q.4 hours p.r.n. pain. 4. Digoxin 0.125 mg p.o. Thursday, Thursday, Thursday. 5. Albuterol 2 puffs inhaled q.4 hours p.r.n. shortness of breath. 6. Advair 500/50 one puff inhaled twice daily. 7. Diltiazem CD 120 mg p.o. daily. 8. Allopurinol 300 mg p.o. daily. 9. Mometasone nasal 50 mcg each nostril twice daily as needed for congestion. 10. Prednisone 30 mg p.o. daily x2 days, then 20 mg x2 days, then 10 mg x2 days. 11. Omeprazole 20 mg p.o. daily. 12. Tessalon 100 mg p.o. t.i.d. p.r.n. cough. HOSPITAL COURSE: Mr. Gamez is a 70-year-old male who presented to the emergency room with complaints of shortness of breath and chest tightness. The patient has had a couple weeks of what began as running nose and nasal congestion now gotten to the point where he feels shortness of breath and tightness in his chest. The patient was admitted for treatment of COPD exacerbation and evaluation of his chest pain. He was started steroids and standing nebulizer treatments. He was initially started on azithromycin and Rocephin. This was ultimately discontinued as there were no clear signs of infection. The patient slowly improved over the course of his hospitalization without any significant interventions. I did ask Dr. Kumar to consult on the patient couple of days into his hospitalization. At that point, it was felt that constipation likely was contributing to his shortness of breath due to the abdominal distention pushing up on his chest. Additionally, his AFib was uncontrolled, which may have also contributing to his shortness of breath. The patient's constipation was relieved with milk of magnesia and his AFib was finally controlled once he was back on his usual home medication regimen (the patient's metoprolol XL was inadvertently left off his home med list on admission). The patient at this point was felt ready for discharge home. FOLLOWUP CONCERNS: The patient is being discharged home today, 07/24/16. He is to follow up with Dr. Barragan on 07/28/16 at 4:15 p.m. ACTIVITY LEVEL: As tolerated. DIET: Regular. CONDITION ON DISCHARGE: Stable. TIME SPENT: 35 minutes were spent discharging this patient. [id number]/CPS #: [id number]
[2016-07-27] MEDS ORDERED: Warfarin TAB(*) 2 MG PO SCH (17:00)
== END 2016-07-24 10:05 | disposition home or self-care (01) | DRG 192 ==
LOC: ED 10:04 → MED 12:37 → MEDTELE 12:38
PROVIDERS: ADMIT Hospitalist; ATTEND Hospitalist
DX: J44.1 Chronic obstructive pulmonary disease with (acute) exacerbation (principal); I48.2 Chronic atrial fibrillation; Z88.1 Allergy status to other antibiotic agents; Z88.8 Allergy status to other drugs, medicaments and biological substances; I10 Essential (primary) hypertension; M19.90 Unspecified osteoarthritis, unspecified site; Z86.73 Personal history of transient ischemic attack (TIA), and cerebral infarction without residual deficits; Z98.42 Cataract extraction status, left eye; Z98.41 Cataract extraction status, right eye; Z85.46 Personal history of malignant neoplasm of prostate; Z85.51 Personal history of malignant neoplasm of bladder; Z90.79 Acquired absence of other genital organ(s); Z80.9 Family history of malignant neoplasm, unspecified; Z87.891 Personal history of nicotine dependence; Z93.6 Other artificial openings of urinary tract status; M10.9 Gout, unspecified; R07.89 Other chest pain; R05 Cough; K59.00 Constipation, unspecified; R11.0 Nausea
CPT/HCPCS: 36415; 71010; 71250; 74020; 80048; 80053; 81003; 81015; 82272; 82550; 82553; 82607; 82728; 83540; 83550; 83605; 83690; 83735; 83880; 84443; 84484; 85025; 85027; 85610; 85730; 86140; 87040; 87070; 87077; 87086; 87186; 87205; 87899; 93005; 94640; 94760; A9270-GY; J0456; J0696; J1940; J2930; J7512

== ENCOUNTER 2018-04-20 17:24 | Emergency (ER) | payer MEDICARE, OTHER ==
[2018-04-20 17:35] VITALS: BP 153/98
--- NOTE | 2018-04-20 17:54 | ED ---
GI/ HPI - HPI Summary HPI Summary: Patient complains of needing urostomy bag change. Has history of urostomy which home health nurse usually changes. Home health nurses on vacation. 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 Denies any other symptoms pain or injury. - History of Current Complaint Chief Complaint: EDGeneral Time Seen by Provider: 04/20/18 17:49 Stated Complaint: I NEED MY UROSTOMY BAG PUT ON PER PT Hx Obtained From: Patient Onset/Duration: Started Hours Ago Current Severity: None Pain Intensity: 0 Aggravating Factor(s): Nothing Alleviating Factor(s): Nothing - Additional Pertinent History Primary Care Physician: ANNETTE - Allergy/Home Medications Allergies/Adverse Reactions: Allergies Allergy/AdvReac Type Severity Reaction Status Date / Time Iodinated Contrast- Oral and Allergy Anaphylatic Verified 04/20/18 17:36 IV Dye Shock pregabalin [From Lyrica] Allergy See Comment Verified 04/20/18 17:36 PMH/Surg Hx/FS Hx/Imm Hx Endocrine/Hematology History: Denies: Hx Diabetes Cardiovascular History: Reports: Hx Atrial Fibrillation, Hx Hypertension - ON MEDS, Other Cardiovascular Problems/Disorders - Afib Denies: Hx Pacemaker/ICD Respiratory History: Reports: Hx Chronic Bronchitis, Other Respiratory Problems/ Disorders - sinusitis Denies: Hx Asthma History: Reports: Other Problems/Disorders - urostomy, bladder cancer and bladder removal Denies: Hx Dialysis, Hx Renal Disease Musculoskeletal History: Reports: Hx Arthritis Sensory History: Reports: Hx Cataracts - removed, Hx Contacts or Glasses Denies: Hx Hearing Aid Opthamlomology History: Reports: Hx Cataracts - removed, Hx Contacts or Glasses Neurological History: Reports: 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 Cataracts removed; Hx Anesthesia Reactions: No Infectious Disease History: No Infectious Disease History: Denies: Traveled Outside the [place] in Last 30 Days - Family History Known Family History: Positive: Other - Cancer - both parents and brother - Social History Alcohol Use: Daily Alcohol Amount: "one to two a night" Substance Use Type: Reports: None Smoking Status (MU): Former Smoker Type: Cigarettes Amount Used/How Often: 1.5-2 PPD Have You Smoked in the Last Year: No Review of Systems Constitutional: Negative Eyes: Negative ENT: Negative Cardiovascular: Negative Respiratory: Negative Gastrointestinal: Negative Genitourinary: Other Musculoskeletal: Negative Skin: Negative Neurological: Negative Psychological: Normal All Other Systems Reviewed And Are Negative: Yes Physical Exam Triage Information Reviewed: Yes Vital Signs On Initial Exam: Initial Vitals Temp Pulse Resp BP Pulse Ox 97 F 100 17 153/98 98 04/20/18 17:32 04/20/18 17:32 04/20/18 17:32 04/20/18 17:32 04/20/18 17:32 Vital Signs Reviewed: Yes Appearance: Positive: Well-Appearing Skin: Positive: Warm Head/Face: Positive: Normal Head/Face Inspection Eyes: Positive: Normal Neck: Positive: Supple Respiratory/Lung Sounds: Positive: Clear to Auscultation Cardiovascular: Positive: Normal Abdomen Description: Positive: Nontender Musculoskeletal: Positive: Normal Neurological: Positive: Normal Psychiatric: Positive: Normal AVPU Assessment: Alert - Shania Coma Scale Best Eye Response: 4 - Spontaneous Best Motor Response: 6 - Obeys Commands Best Verbal Response: 5 - Oriented Coma Scale Total: 15 Diagnostics - Vital Signs Vital Signs Temp Pulse Resp BP Pulse Ox 04/20/18 17:32 97 F 100 17 153/98 98 - Laboratory Lab Statement: Any lab studies that have been ordered have been reviewed, and results considered in the medical decision making process. GIGU Course/Dx - Course Course Of Treatment: Patient complains of needing urostomy bag change. Has history of urostomy which home health nurse usually changes. Home health nurses on vacation. 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 Denies any other symptoms pain or injury. Urostomy changed without complication. Vital signs within normal limits. - Diagnoses Provider Diagnoses: Attention to urostomy Discharge - Sign-Out/Discharge Documenting (check all that apply): Patient Departure Patient Received Moderate/Deep Sedation with Procedure: No - Discharge Plan Condition: Stable Disposition: HOME Patient Education Materials: Urostomy Care (ED) Referrals: Diaan Killian MD [Primary Care Provider] - Additional Instructions: Follow up with primary care. Return to the ED for any new or worsening symptoms - Billing Disposition and Condition Condition: STABLE Disposition: Home
--- OUTSIDE RECORDS SUMMARY | 2018-04-20 17:54 | XMS REPORT | Continuity of Care Document ---
:1945 External Reference #:[id number] Author Name Joon Fields MD Address [address] [place] [address] Care Team Providers Name Role Phone ELY Duarte Care Team Information Combat Control Unavailable Payers Date Identification Numbers Payment Provider Subscriber Policy Number: [id number] [facility] PayID: [id number] [address] [place] [address] Effective: 2012 Policy Number: Ghi([facility] Shin Gamez [id number] [facility]) Group Name: [employer] 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 Tobacco Use Start: Unknown End: Former Cigarette Smoker quit 2008, used to Unknown smoke 1 PPD since 15 ETOH Use consumes 4-5 beers per day Recreational Drug Use Denies Drug Use Allergies, Adverse Reactions, Alerts Date Description Reaction Status Severity Comments 04/21/2013 Zithromax Active rash 10/06/2012 NKDA Inactive Medications Medication Date Status Form Strength Qnty SIG Indications Ordering Provider Augmentin 03/29 Active Tablets 875-125mg 20tab 1 take by J18.9 Joon s mouth tablet [place] every 12 , MD hours for 10 days for infection Prednisone 03/29 Active Tablets 20mg 20tab take 3 tabs J18.9 Joon s by mouth x 3 [place] days, then 2 , MD tabs by mouth x 3 days, then 1 tab by mouth x 3 days then 1/2 tab by mouth x 4 days Guaifenesin-Cod 03/29 Active Syrup 100-10mg/ 240ml 5-10 J18.9 Joon 5ML milliliters [place] every 4-6 , MD hours as needed cough Ketoconazole 07/28 Active Shampoo 2% 120ml use to L21.9 shampoo head Agustin Zhang, daily for up [employer] to 2 weeks as needed Proventil HFA 07/25 Active Aerosol 108(90Bas 18uni 2 puffs J44.9 Geena e) ts every 4 Shortle, mcg/Act hours if [employer] needed for cough, wheeze, shortness of breath Advair Diskus 07/25 Active Aerosol 500-50mcg 180un Inhale One J44.9 /Dose its puff By Agustin Zhang Mouth Twice [employer] A Day Nasonex 06/20 Active Suspension 50mcg/Act 51uni spray 1 ts spray into [place] each nostril , MD twice daily as needed Digoxin 06/20 Active Tablets 125mcg 30tab Take One s Tablet By [place] Mouth Every M.D., Day R.D. Hydrocodone-Chinmay 07/06 Active Tablets 10-325mg 60tab take one taminophen s tablet by Agustin Zhang mouth twice [employer] a day as needed for severe pain; maximum daily dose=2 Cartia XT 03/09 Active Caps ER 120mg 90cap Take One 24HR s Capsule By Gino Wilcox Every [employer] Day Allopurinol 10/06 Active Tablets 300mg 30tab Take One s Tablet By [place] Mouth Every M.D., Day R.D. Warfarin Sodium 10/06 Active Tablets 1mg 90tab Take 1 & 12 s Tablets By Diamond Mouth 5 Days , MD Per Week And Take Two Tablets Daily 2 Days Per Week as Directed Metoprolol 00/00 Active Tablets ER 25mg take 1/2 tab Unknown Succinate ER /0000 24HR (25mg) by mouth every day Doxycycline 03/17 Hx Tablets 100mg 10tab 1 tab by Enrique44.1 Joon Ding s mouth twice [place] - a day , 03/29 Prednisone 03/17 Hx Tablets 50mg 3tabs 1 tab by J44.1 Joon mouth every [place] - day , 03/29 Spiriva 11/09 Hx Aerosol 2.5mcg/Ac 4gm Inhale 2 Enrique44.1 Joon Respimat t puffs by Anthonyetyany - mouth daily , 03/29 for chronic /2019 obstructive lung disease Doxycycline 10/26 Hx Capsules 100mg 10cap 1 take by J44.0 Genea Hallclso s mouth Shortle, - capsule 2 [employer] 11/09 times day for 10 days for infection Prednisone 10/26 Hx Tablets 50mg 4tabs 1 tab by J44.0 Geena mouth daily Shortle, - for 4 days [employer] 11/09 Fluconazole 07/03 Hx Tablets 150mg 4tabs 1 tab by B36.0 Joon mouth every [place] - 2 weeks , 03/29 Augmentin 05/20 Hx Tablets 875-125mg 10tab 1 take by Enrique44.0 Joon s mouth tablet [place] - every 12 , 07/03 hours for days for infection Doxycycline 05/06 Hx Capsules 100mg 10cap 1 take by J44.0 Joon cl s mouth [place] - capsule 2 , 05/20 times day for 10 days for infection Prednisone 05/06 Hx Tablets 50mg 4tabs 1 tab by J44.0 Joon mouth daily [place] - for 4 days , 05/20 Guaifenesin-Cod 11/24 Hx Syrup 100-10mg/ 180ml 5 J06.9 Joon munoz 5ML milliliters [place] - by mouth , 03/29 every hours as needed cough...do not take while taking hydrocodone Benzonatate 04/10 Hx Capsules 200mg 30cap Take One J06.9 wnt s Capsule By Agustin Zhang, - Mouth Three [employer] 05/20 Times A Day For Cough Vitamin B-12 09/19 Hx Tablets 1000mcg 90tab 1 po daily s Agustin Zhang, - [employer] 07/28 Magnesium 08/15 Hx Tablets 500mg 30tab 1 by mouth G47.62 s every day Agustin Zhang, - before bed [employer] 05/06 Benzonatate 07/25 Hx Capsules 200mg 30cap 1 by mouth J44.9 s three times Agustin Zhang, - a day if [employer] 04/10 needed for cough Amoxicillin/Cla 06/20 Hx Tablets 875-125mg 20tab 1 by mouth J01.90 Diana vulanate s three times [place] Potassium - a day for 10 M.D., 07/25 days R.D. /2015 Digoxin 06/17 Hx Tablets 250mcg 90tab Take 1 s Tablet By Nick, - Mouth Every [employer] Metoprolol 05/09 Hx Tablets ER 100mg 90tab Take 12.5mg Shawnti Succinate ER 24HR s Tablet By Agustin Zhang, - Mouth Every [employer] Doxycycline 02/03 Hx Capsules 100mg 14cap 1 po bid S50.862A Diana Hyclate s [place], - M.DRk, 06/20 R.D. Lyrica 01/01 Hx Capsules 50mg 90cap 2 by mouth Diana /2014 s in in the [place], - morning, 1 M.D., 05/09 in at night R.D. /2015 mdd 2 Cetirizine HCL 12/28 Hx Tablets 10mg 30tab 1 by mouth Joon /2014 s every day Diamond Gay MD 06/20 Ciprofloxacin 10/13 Hx Tablets 500mg 20tab 1 by mouth 599.0 Nate HCL /2014 s twice a day Danita - x 10 days III, 05/09 [employer] Ondansetron 03/14 Hx Tablets 4mg 10ten dissolve 1 787.91 Dispers tab by mouth Nick, - three times [employer] 06/20 a day needed nausea Levofloxacin 11/23 Hx Tablets 750mg 7tabs 1 tablet by 728.87 Lottie mouth every Nick, - day x7 days [employer] 01/03 Gabapentin 11/23 Hx Capsules 300mg 180ca Take 1-2 G60.8 ps Capsules By [place], - Mouth Three M.D., 06/20 Times A Day R.D. /2015 Ciprofloxacin 11/01 Hx Tablets 500mg 14tab take 1 599.0 Lottie HCL s tablet by Nikc, - mouth twice [employer] 01/03 a day x days Vitamin B12 07/13 Hx Tablets 1000mcg 1 po qd [place], - Simi.DRk, 06/20 R.D. Prednisone 05/05 Hx Tablets 20mg QS 3 po qd x 693.0 2days, 2 po RRk Zhang, - qd x 2 days, [employer] 07/13 1 po qd x 2 days, 1/2 po qd x 2 days Zyrtec Allergy 05/05 Hx Tablets 10mg 30tab 1 by mouth Joon s daily for [place] - allergies , 06/20 Prednisone 04/21 Hx Tablets 50mg 5tabs one pill po 693.0 nt daily for 5 R. , - days for [employer] 05/01 Hydroxyzine HCL 04/21 Hx Tablets 25mg 40tab 1 po qid prn 693.0 s itching RRk Zhang, - [employer] 05/01 Triamcinolone 04/11 Hx Cream 0.1% 30g apply to Diana Acetonide affected [place], - area bid prn M.D., 06/20 R.D. Azithromycin 04/11 Hx Tablets 250mg 6tabs 2 po today 491.8 then 1 po [place], - daily for 4 M.D., 04/21 days R.D. /2013 Metoprolol 03/18 Hx Tablets ER 200mg 90tab Take 1 Diana Succinate ER 24HR s Tablet Every [place], - Morning M.D., 05/09 R.D. /2015 Hydrocodone/Chinmay 10/20 Hx Tablets 10-325mg 60tab 1 by mouth Shawnti tamino s twice a day Agustin Zhang, - as needed [facility] 07/06 Toprol XL 10/06 Hx Tablets ER 200mg 90tab 1 po q Am 24HR Deidra Cortés M.D., 03/18 R.D. /2013 Diltiazem CD 10/06 Hx Caps ER 120mg 90cap 1 po qd 24HR Deidra Cortés M.D., 03/09 R.D. /2013 Digox 10/06 Hx Tablets 0.25mg 90tab Take 1 s Tablet By Nick, - Mouth Every [facility] /2015 Simvastatin 10/06 Hx Tablets 20mg 90tab Take 1 s Tablet By Nick, - Mouth AT [facility] 06/20 Bedtime /2015 Levetiracetam Hx Tablets 500mg 1 1/2 tabs Unknown /0000 twice daily - 04/10 Levofloxacin 00 Hx Tablets 500mg Unknown /0000 - 04/10 Divalproex Hx Tablets ER 500mg Marti, Sodium ER /0000 24HR MD Jerson - 07/28 Prednisone 00 Hx Tablets 20mg 3 by mouth Unknown /0000 every day x - 2days, 2 by 05/06 mouth day x 2 days, 1 by mouth every day x 2 days, 1/2 by mouth every day x 2 [address] Hx [address] 20mg 90cap 1 by mouth Shawnti /0000 s every day Agustin Zhang, - [facility] 05/06 Immunizations CPT Code Status Date Vaccine Lot # [id number] Given 11/09/2017 Prevnar-13 Pneumococcal Conjugate Vaccine [id number] Given 11/09/2017 Influenza Vaccine High Dose PF [id number] Given 03/04/2017 Influenza Vaccine High Dose PF [id number] Given 01/30/2016 Influenza Vaccine High Dose PF [id number] Refused 11/10/2012 Influenza Vaccine-Preservative Free 3 Yrs And Above Vital Signs Date Vital Result Comment 03/29/2018 3:33pm Weight 148.00 lb Weight 67.133 kg BP Systolic 120 mmHg BP Diastolic 70 mmHg Heart Rate 85 /min Body Temperature 97.3 F O2 % BldC Oximetry 97 % 03/17/2018 10:32am Weight 149.00 lb Weight 67.586 kg BP Systolic 118 mmHg BP Diastolic 70 mmHg Heart Rate 74 /min Body Temperature 97.5 F Respiratory Rate 16 /min O2 % BldC Oximetry 99 % 01/12/2018 3:17pm Weight 151.00 lb Weight 68.494 kg BP Systolic 114 mmHg BP Diastolic 62 mmHg Heart Rate 86 /min Body Temperature 97.6 F Respiratory Rate 16 /min Height 63.5 inches 5'3.50" BMI (Body Mass Index) 26.3 kg/m2 O2 % BldC Oximetry 97 % 11/09/2017 10:34am Weight 149.00 lb Weight 67.586 kg BP Systolic 103 mmHg BP Diastolic 67 mmHg Heart Rate 72 /min Body Temperature 97.0 F O2 % BldC Oximetry 96 % 10/26/2017 3:30pm Weight 150.00 lb Weight 68.040 kg BP Systolic 100 mmHg BP Diastolic 64 mmHg Heart Rate 80 /min Body Temperature 97.6 F Respiratory Rate 20 /min O2 % BldC Oximetry 96 % 10/16/2017 3:03pm Weight 151.00 lb Weight 68.494 kg BP Systolic 110 mmHg BP Diastolic 72 mmHg Heart Rate 74 /min Body Temperature 97.3 F Respiratory Rate 16 /min O2 % BldC Oximetry 97 % 08/11/2017 11:43am Weight 152.00 lb Weight 68.947 kg BP Systolic 118 mmHg BP Diastolic 72 mmHg Heart Rate 88 /min Body Temperature 97.7 F Respiratory Rate 16 /min Right Visual Acuity Distance 20/40 Left Visual Acuity Distance 20/30 Both Visual Acuity Distance 20/30 O2 % BldC Oximetry 98 % 07/03/2017 10:01am Weight 151.00 lb Weight 68.494 kg BP Systolic 120 mmHg BP Diastolic 74 mmHg Heart Rate 74 /min Body Temperature 97.9 F Respiratory Rate 16 /min O2 % BldC Oximetry 98 % 05/20/2017 10:42am Weight 155.00 lb Weight 70.308 kg BP Systolic 110 mmHg BP Diastolic 78 mmHg Heart Rate 76 /min Body Temperature 96.9 F O2 % BldC Oximetry 98 % 05/06/2017 10:28am Weight 156.00 lb Weight 70.762 kg BP Systolic 124 mmHg BP Diastolic 68 mmHg Heart Rate 104 /min Body Temperature 97.9 F O2 % BldC Oximetry 98 % 01/14/2017 4:38pm Weight 155.00 lb Weight 70.308 kg BP Systolic 110 mmHg BP Diastolic 60 mmHg Heart Rate 96 /min Body Temperature 97.2 F Respiratory Rate 20 /min Height 64 inches 5'4" BMI (Body Mass Index) 26.6 kg/m2 11/24/2016 4:56pm Weight 156.00 lb Weight 70.762 kg BP Systolic 150 mmHg BP Diastolic 66 mmHg Heart Rate 85 /min Body Temperature 95.7 F Respiratory Rate 18 /min O2 % BldC Oximetry 97 % 07/28/2016 4:22pm Weight 151.00 lb Weight 68.494 kg BP Systolic 130 mmHg BP Diastolic 60 mmHg Heart Rate 88 /min O2 % BldC Oximetry 98 % 05/21/2016 10:09am Weight 151.00 lb Weight 68.494 kg BP Systolic 112 mmHg BP Diastolic 82 mmHg Heart Rate 76 /min 04/10/2016 11:27am Weight 158.00 lb Weight 71.669 kg BP Systolic 100 mmHg BP Diastolic 60 mmHg Heart Rate 72 /min Body Temperature 97.6 F O2 % BldC Oximetry 93 % 01/30/2016 11:22am Weight 154.00 lb Weight 69.854 kg BP Systolic 128 mmHg BP Diastolic 62 mmHg Heart Rate 80 /min O2 % BldC Oximetry 99 % 12/21/2015 11:17am Weight 150.00 lb Weight 68.040 kg BP Systolic 118 mmHg BP Diastolic 62 mmHg Heart Rate 75 /min Body Temperature 97.7 F Respiratory Rate 17 /min 12/04/2015 10:17am Weight 152.00 lb Weight 68.947 kg BP Systolic 100 mmHg BP Diastolic 60 mmHg Heart Rate 88 /min Body Temperature 97.5 F Respiratory Rate 16 /min 09/14/2015 3:55pm Weight 156.00 lb Weight 70.762 kg BP Systolic 109 mmHg BP Diastolic 63 mmHg Heart Rate 82 /min Body Temperature 98.6 F 08/17/2015 2:54pm Weight 157.00 lb Weight 71.215 kg BP Systolic 100 mmHg BP Diastolic 60 mmHg Heart Rate 91 /min 08/16/2015 9:53am Weight 154.00 lb Weight 69.854 kg BP Systolic 130 mmHg BP Diastolic 81 mmHg Heart Rate 98 /min O2 % BldC Oximetry 98 % 07/26/2015 11:44am Weight 160.00 lb Weight 72.576 kg BP Systolic 100 mmHg BP Diastolic 65 mmHg Heart Rate 67 /min O2 % BldC Oximetry 98 % 06/21/2015 10:25am Weight 157.00 lb Weight 71.215 kg BP Systolic 100 mmHg BP Diastolic 64 mmHg Heart Rate 74 /min Body Temperature 98.9 F O2 % BldC Oximetry 97 % 05/25/2015 10:13am Weight 162.00 lb Weight 73.483 kg BP Systolic 100 mmHg BP Diastolic 60 mmHg Heart Rate 69 /min 05/10/2015 11:42am Weight 163.00 lb Weight 73.937 kg BP Systolic 126 mmHg BP Diastolic 64 mmHg Heart Rate 87 /min Body Temperature 98.6 F O2 % BldC Oximetry 98 % 02/03/2015 10:38am Weight 159.00 lb Weight 72.122 kg BP Systolic 134 mmHg BP Diastolic 66 mmHg Heart Rate 76 /min Body Temperature 97.7 F 01/01/2015 11:10am Weight 160.00 lb Weight 72.576 kg BP Systolic 140 mmHg BP Diastolic 60 mmHg Heart Rate 57 /min Body Temperature 96.2 F 12/28/2014 10:52am Weight 157.00 lb Weight 71.215 kg BP Systolic 146 mmHg BP Diastolic 56 mmHg Heart Rate 56 /min Body Temperature 96.4 F 10/13/2014 2:00pm Weight 159.00 lb Weight 72.122 kg BP Systolic 77472 mmHg BP Diastolic 66 mmHg Heart Rate 64 /min 03/14/2014 12:00pm Weight 155.00 lb Weight 70.308 kg BP Systolic 130 mmHg [id number]/60 BP Diastolic 58 mmHg l118/48rn311/44g977/60 Heart Rate 61 /min [id number] Body Temperature 97.1 F O2 % BldC Oximetry 97 % 02/06/2014 10:25am Weight 168.00 lb Weight 76.205 kg BP Systolic 80 mmHg BP Diastolic 60 mmHg Heart Rate 60 /min 11/28/2013 9:36am Weight 167.00 lb Weight 75.751 kg BP Systolic 100 mmHg BP Diastolic 60 mmHg Heart Rate 56 /min 11/23/2013 10:35am Weight 166.00 lb Weight 75.298 kg BP Systolic 110 mmHg BP Diastolic 52 mmHg Heart Rate 56 /min 11/01/2013 10:50am Weight 166.00 lb Weight 75.298 kg BP Systolic 136 mmHg BP Diastolic 70 mmHg Heart Rate 66 /min Body Temperature 97.4 F 07/13/2013 10:55am Weight 167.00 lb Weight 75.751 kg BP Systolic 120 mmHg BP Diastolic 70 mmHg Heart Rate 52 /min 06/20/2013 1:37pm Weight 162.00 lb Weight 73.483 kg BP Systolic 108 mmHg BP Diastolic 50 mmHg Heart Rate 76 /min 05/23/2013 2:36pm Weight 161.00 lb Weight 73.030 kg BP Systolic 129 mmHg BP Diastolic 58 mmHg Heart Rate 80 /min 05/05/2013 11:06am Weight 161.00 lb Weight 73.030 kg BP Systolic 124 mmHg BP Diastolic 60 mmHg Heart Rate 72 /min 04/21/2013 2:07pm Weight 163.00 lb Weight 73.937 kg BP Systolic 108 mmHg BP Diastolic 58 mmHg Heart Rate 60 /min Body Temperature 97.5 F 04/11/2013 11:19am Weight 163.00 lb Weight 73.937 kg BP Systolic 126 mmHg BP Diastolic 70 mmHg Heart Rate 72 /min 01/26/2013 9:10am Weight 160.00 lb Weight 72.576 kg BP Systolic 110 mmHg BP Diastolic 70 mmHg Heart Rate 60 /min 01/19/2013 2:57pm Weight 159.00 lb Weight 72.122 kg BP Systolic 146 mmHg BP Diastolic 62 mmHg Heart Rate 56 /min Body Temperature 97.3 F 01/17/2013 10:35am Weight 158.00 lb Weight 71.669 kg BP Systolic 112 mmHg BP Diastolic 66 mmHg Heart Rate 64 /min Body Temperature 97.5 F 01/10/2013 11:12am Weight 158.00 lb Weight 71.669 kg BP Systolic 100 mmHg BP Diastolic 60 mmHg Heart Rate 60 /min 10/06/2012 11:28am Weight 154.00 lb Weight 69.854 kg BP Systolic 120 mmHg BP Diastolic 70 mmHg Heart Rate 64 /min Height 64 inches 5'4" BMI (Body Mass Index) 26.4 kg/m2 Results Test Date Facility Test Result H/L Range Note Inr/Protime 03/29/2018 [facility] Inr 2.50 High 0.77-1.02 2 [phone] Inr/Protime 03/24/2018 [facility] Inr 4.06 High 0.77-1.02 2 [phone] Laboratory test 03/17/2018 [facility] Uric Acid 4.8 mg/dL N 4.4-7.6 3, 4 finding [phone] Lipid Profile 03/17/2018 [facility] Triglycerides 160 mg/dL 5 (Trig/Chol/HDL) [phone] Cholesterol 165 mg/dL 6 HDL Cholesterol 52.5 mg/dL 7 LDL Cholesterol 81 mg/dL 8 Comp Metabolic Panel 03/17/2018 [facility] Sodium 142 mmol/L N 135-145 [phone] Potassium 4.5 mmol/L N 3.5-5.0 Chloride 107 mmol/L N 101-111 Co2 Carbon Dioxide 29 mmol/L N 22-32 Anion Gap 6 mmol/L N 2-11 Glucose 153 mg/dL High 70-100 Blood Urea Nitrogen 13 mg/dL N 6-24 Creatinine 0.78 mg/dL N 0.67-1.17 BUN/Creatinine Ratio 16.7 N 8-20 Calcium 9.4 mg/dL N 8.6-10.3 Total Protein 7.4 g/dL N 6.4-8.9 Albumin 4.1 g/dL N 3.2-5.2 Globulin 3.3 g/dL N 2-4 Albumin/Globulin Ratio 1.2 N 1-3 Total Bilirubin 0.50 mg/dL N 0.2-1.0 Alkaline Phosphatase 69 U/L N 34-104 Alt 15 U/L N 7-52 Ast 24 U/L N 13-39 Egfr Non- 97.8 >60 Egfr 118.4 >60 9 CBC Auto Diff 03/17/2018 [facility] White Blood 3.8 10^3/uL N 3.5-10.8 [phone] Count Red Blood Count 3.71 10^6/uL Low 4.00-5.40 Hemoglobin 13.5 g/dL Low 14.0-18.0 Hematocrit 40 % Low 42-52 Mean Corpuscular Volume 109 fL High 80-94 10 Mean Corpuscular Hemoglobin 36 pg High 27-31 Mean Corpuscular HGB Conc 34 g/dL N 31-36 Red Cell Distribution Width 15 % N 10.5-15 Platelet Count 141 10^3/uL Low 150-450 Mean Platelet Volume 9.8 fL N 7.4-10.4 Abs Neutrophils 2.3 10^3/uL N 1.5-7.7 Abs Lymphocytes 0.7 10^3/uL Low 1.0-4.8 Abs Monocytes 0.3 10^3/uL N 0-0.8 Abs Eosinophils 0.5 10^3/uL N 0-0.6 Abs Basophils 0 10^3/uL N 0-0.2 Abs Nucleated RBC 0 10^3/uL Granulocyte % 59.7 % Lymphocyte % 18.6 % Monocyte % 8.4 % Eosinophil % 12.5 % Basophil % 0.8 % Nucleated Red Blood Cells % 0.1 Laboratory test 03/17/2018 [facility] Rheumatoid < 10 IU/mL N <15 11 finding [phone] Factor C Reactive Protein 12.50 mg/L High <8.01 12 Inr/Protime 03/17/2018 [facility] Inr 1.79 High 0.77-1.02 [phone] Inr/Protime 03/11/2018 [facility] Inr 1.78 High 0.77-1.02 13 [phone] Inr/Protime 03/03/2018 [facility] Inr 1.85 High 0.77-1.02 14 [phone] Inr/Protime 01/27/2018 [facility] Inr 2.05 High 0.77-1.02 15 [phone] Inr/Protime 12/30/2017 [facility] Inr 2.84 High 0.77-1.02 16 [phone] Inr/Protime 12/02/2017 [facility] Inr 2.70 High 0.77-1.02 17 [phone] Inr/Protime 11/04/2017 [facility] Inr 2.04 High 0.77-1.02 18 [phone] Inr/Protime 10/29/2017 [facility] Inr 2.25 High 0.77-1.02 19 [phone] Inr/Protime 10/14/2017 [facility] Inr 2.47 High 0.77-1.02 20 [phone] Inr/Protime 10/07/2017 [facility] Inr 2.22 High 0.77-1.02 21 [phone] Inr/Protime 09/30/2017 [facility] Inr 3.70 High 0.77-1.02 22 [phone] Inr/Protime 08/27/2017 [facility] Inr 2.49 High 0.77-1.02 23 [phone] Inr/Protime 08/13/2017 [facility] Inr 2.82 High 0.77-1.02 24 [phone] Inr/Protime 08/05/2017 [facility] Inr 1.94 High 0.77-1.02 25 [phone] Inr/Protime 07/28/2017 [facility] Inr 1.64 High 0.77-1.02 26 [phone] Laboratory test 07/23/2017 [facility] Blood Urea 9 mg /dL N 6-24 finding [phone] Nitrogen BUN Creatinine 07/23/2017 [facility] Creatinine 0.83 N 0.67-1.17 [phone] mg/dL Egfr Non- 91.3 >60 Egfr 117.5 >60 27 Inr/Protime 07/21/2017 [facility] Inr 1.93 High 0.77-1.02 [phone] Inr/Protime 07/07/2017 [facility] Inr 1.95 High 0.77-1.02 [phone] Inr/Protime 06/03/2017 [facility] Inr 2.33 High 0.77-1.02 [phone] Inr/Protime 05/20/2017 [facility] Inr 2.34 High 0.77-1.02 [phone] Inr/Protime 05/13/2017 [facility] Inr 2.40 High 0.77-1.02 [phone] Inr/Protime 05/06/2017 [facility] Inr 3.32 High 0.77-1.02 [phone] Inr/Protime 04/23/2017 [facility] Inr 4.44 High 0.77-1.02 [phone] Inr/Protime 04/16/2017 [facility] Inr 3.29 High 0.77-1.02 [phone] Inr/Protime 03/25/2017 [facility] Inr 2.96 High 0.77-1.02 [phone] Inr/Protime 03/11/2017 [facility] Inr 2.53 High 0.77-1.02 [phone] Inr/Protime 03/04/2017 [facility] Inr 2.36 High 0.77-1.02 [phone] Inr/Protime 02/26/2017 [facility] Inr 1.85 High 0.77-1.02 [phone] Inr/Protime 02/06/2017 [facility] Inr 2.31 High 0.77-1.02 28 [phone] Inr/Protime 01/23/2017 [facility] Inr 2.00 High 0.77-1.02 29 [phone] Inr/Protime 01/16/2017 [facility] Inr 1.80 High 0.77-1.02 30 [phone] Inr/Protime 12/16/2016 [facility] Inr 2.11 High 0.89-1.11 [phone] Inr/Protime 11/18/2016 [facility] Inr 2.04 High 0.89-1.11 [phone] Inr/Protime 10/21/2016 [facility] Inr 2.25 High 0.89-1.11 [phone] Inr/Protime 09/19/2016 [facility] Inr 3.04 High 0.89-1.11 [phone] Inr/Protime 08/14/2016 [facility] Inr 2.70 High 0.89-1.11 [phone] CBC Auto Diff 07/21/2016 [facility] White Blood 6.6 N 3.5-10.8 [phone] Count 10^3/uL Red Blood Count 4.01 10^6/uL N 4.0-5.4 Hemoglobin 14.1 g/dL N 14.0-18.0 Hematocrit 43 % N 42-52 Mean Corpuscular Volume 106 fL High 80-94 31 Mean Corpuscular Hemoglobin 35 pg High 27-31 Mean Corpuscular HGB Conc 33 g/dL N 31-36 Red Cell Distribution Width 15 % N 10.5-15 Platelet Count 162 10^3/uL N 150-450 Mean Platelet Volume 9 um3 N 7.4-10.4 Abs Neutrophils 3.8 10^3/uL N 1.5-7.7 Abs Lymphocytes 1.1 10^3/uL N 1.0-4.8 Abs Monocytes 0.7 10^3/uL N 0-0.8 Abs Eosinophils 1.0 10^3/uL High 0-0.6 Abs Basophils 0.1 10^3/uL N 0-0.2 Abs Nucleated RBC 0.01 10^3/uL N Granulocyte % 57.0 % N 38-83 Lymphocyte % 16.6 % Low 25-47 Monocyte % 10.4 % High 1-9 Eosinophil % 15.0 % High 0-6 Basophil % 1.0 % N 0-2 Nucleated Red Blood Cells % 0.1 N Laboratory test 07/21/2016 [facility] Lactic Acid 1.2 mmol/L N 0.5-2.0 32 finding [phone] B Type Natriuretic Peptide 174 pg/mL High 33 Comp Metabolic Panel 07/21/2016 [facility] Sodium 142 mmol/L N 133-145 [phone] Potassium 4.1 mmol/L N 3.5-5.0 Chloride 108 mmol/L N 101-111 Co2 Carbon Dioxide 26 mmol/L N 22-32 Anion Gap 8 mmol/L N 2-11 Glucose 111 mg/dL High 70-100 Blood Urea Nitrogen 13 mg/dL N 6-24 Creatinine 0.83 mg/dL N 0.67-1.17 BUN/Creatinine Ratio 15.7 N 8-20 Calcium 9.3 mg/dL N 8.6-10.3 Total Protein 8.3 g/dL N 6.4-8.9 Albumin 4.2 g/dL N 3.2-5.2 Globulin 4.1 g/dL High 2-4 Albumin/Globulin Ratio 1.0 N 1-3 Total Bilirubin 0.90 mg/dL N 0.2-1.0 Alkaline Phosphatase 80 U/L N 34-104 Alt 13 U/L N 7-52 Ast 22 U/L N 13-39 Egfr Non- 91.6 N >60 Egfr 117.8 N >60 34 Laboratory test 07/21/2016 [facility] Magnesium 2.0 mg/dL N 1.9-2.7 finding [phone] Lipase 29 U/L N 11.0-82.0 Creatine Kinase 127 U/L N 10-223 Troponin I 0.00 ng/mL N <0.04 C Reactive Protein 17.87 mg/L High < 5.00 35 CKMB 07/21/2016 [facility] CKMB ng/mL 5.8 ng/mL N 0.6-6.3 [phone] Laboratory test 07/21/2016 [facility] [facility] TSH (Thyroid 2.79 N 0.34-5.60 finding [phone] Stim Horm) mcIU/mL Inr/Protime 07/21/2016 [facility] Inr 2.61 High 0.89-1.11 [phone] Laboratory test 07/21/2016 [facility] Partial 41.7 High 26.0-36.3 finding [phone] Thrombo Time seconds PTT Urinalysis 07/21/2016 [facility] Urine Color Yellow N Profile [phone] Urine Appearance Cloudy N Urine Specific [place] 1.015 N 1.010-1.030 Urine pH 8.0 N 5-9 Urine Urobilinogen Negative N Negative Urine Ketones Negative N Negative Urine Protein 1+(30 mg/dL) Abnormal Negative Urine Leukocytes 3+ Abnormal Negative Urine Blood Negative N Negative Urine Nitrite Negative N Negative Urine Bilirubin Negative N Negative Urine Glucose Negative N Negative Urine White Blood Cell 2+(11-20/hpf) Abnormal Absent Urine Red Blood Cell 1+(3-5/hpf) Abnormal Absent Urine Bacteria Absent N Absent Urine Squamous Epithelial Cell Present Abnormal Absent Urine Hyaline Casts Present Abnormal Absent Urine Triple Phosphate Cryst Present Abnormal Absent Laboratory test 07/21/2016 [facility] Legionella Urine SEE RESULT 36 finding [phone] Antigen BELOW Blood Culture SEE RESULT BELOW 37 Urine Culture SEE RESULT BELOW 38 Inr/Protime 07/15/2016 [facility] Inr 3.00 High 0.89-1.11 [phone] Inr/Protime 06/11/2016 [facility] Inr 2.89 High 0.89-1.11 [phone] CBC Auto Diff 05/21/2016 [facility] White Blood 4.8 N 3.5-10.8 [phone] Count 10^3/uL Red Blood Count 3.80 10^6/uL Low 4.0-5.4 Hemoglobin 13.2 g/dL Low 14.0-18.0 Hematocrit 40 % Low 42-52 Mean Corpuscular Volume 106 fL High 80-94 39 Mean Corpuscular Hemoglobin 35 pg High 27-31 Mean Corpuscular HGB Conc 33 g/dL N 31-36 Red Cell Distribution Width 15 % N 10.5-15 Platelet Count 160 10^3/uL N 150-450 Mean Platelet Volume 10 um3 N 7.4-10.4 Abs Neutrophils 2.7 10^3/uL N 1.5-7.7 Abs Lymphocytes 1.4 10^3/uL N 1.0-4.8 Abs Monocytes 0.4 10^3/uL N 0-0.8 Abs Eosinophils 0.3 10^3/uL N 0-0.6 Abs Basophils 0 10^3/uL N 0-0.2 Abs Nucleated RBC 0.01 10^3/uL N Granulocyte % 55.7 % N 38-83 Lymphocyte % 28.3 % N 25-47 Monocyte % 8.1 % N 1-9 Eosinophil % 7.3 % High 0-6 Basophil % 0.6 % N 0-2 Nucleated Red Blood Cells % 0.1 N Comp Metabolic Panel 05/21/2016 [facility] Sodium 140 mmol/L N 133-145 [phone] Potassium 3.9 mmol/L N 3.5-5.0 Chloride 106 mmol/L N 101-111 Co2 Carbon Dioxide 28 mmol/L N 22-32 Anion Gap 6 mmol/L N 2-11 Glucose 99 mg/dL N 70-100 Blood Urea Nitrogen 10 mg/dL N 6-24 Creatinine 0.76 mg/dL N 0.67-1.17 BUN/Creatinine Ratio 13.2 N 8-20 Calcium 8.9 mg/dL N 8.6-10.3 Total Protein 7.6 g/dL N 6.4-8.9 Albumin 3.9 g/dL N 3.2-5.2 Globulin 3.7 g/dL N 2-4 Albumin/Globulin Ratio 1.1 N 1-3 Total Bilirubin 0.60 mg/dL N 0.2-1.0 Alkaline Phosphatase 59 U/L N 34-104 Alt 15 U/L N 7-52 Ast 22 U/L N 13-39 Egfr Non- 101.4 N >60 Egfr 130.4 N >60 40 Laboratory test 05/21/2016 [facility] Hemoglobin A1c 5.6 % N Less than 41 finding [phone] (Glyco HGB) 6.0 C Reactive Protein 6.09 mg/L High < 5.00 42 Inr/Protime 05/21/2016 [facility] Inr 2.61 High 0.89-1.11 [phone] Urine DIP 05/21/2016 [facility] Leukocytes ++ Neg [phone] Urine Nitrites positive Neg Urobilinogen neg Norm Total Protein, Urine trace Neg Urine pH 9 High 5-6 Urine Blood +++ Neg Specific [place] 1.005 Low 1.01-1.02 Urine Ketones neg Neg Urine Bilirubin neg Neg Urine Glucose neg Norm Laboratory test 05/21/2016 [facility] TSH (Thyroid 2.11 mcIU/mL N 0.34-5.60 43 finding [phone] Stim Horm) Free T4 (Free Thyroxine) 0.69 ng/dL N 0.61-1.12 44 T3 Total 0.73 ng/mL Low 0.87-1.78 45 Inr/Protime 05/06/2016 [facility] Inr 2.72 High 0.89-1.11 [phone] Inr/Protime 04/28/2016 [facility] Inr 2.21 High 0.89-1.11 [phone] Inr/Protime 04/17/2016 [facility] Inr 1.33 High 0.89-1.11 [phone] Inr/Protime 04/10/2016 [facility] Inr 1.36 High 0.89-1.11 [phone] Comp Metabolic 03/30/2016 [facility] Sodium 134 mmol/ L N 133-145 Panel [phone] Chloride 100 mmol/L Low 101-111 Co2 Carbon Dioxide 24 mmol/L N 22-32 Glucose 88 mg/dL N 70-100 Blood Urea Nitrogen 11 mg/dL N 6-24 Creatinine 0.88 mg/dL N 0.67-1.17 BUN/Creatinine Ratio 12.5 N 8-20 Calcium 9.3 mg/dL N 8.6-10.3 Total Protein 8.2 g/dL N 6.4-8.9 Albumin 4.2 g/dL N 3.2-5.2 Globulin 4.0 g/dL N 2-4 Albumin/Globulin Ratio 1.1 N 1-3 Total Bilirubin 0.60 mg/dL N 0.2-1.0 Alkaline Phosphatase 65 U/L N 34-104 Alt 14 U/L N 7-52 Egfr Non- 85.6 N >60 Egfr 110.1 N >60 46 Potassium TNP mmol/L N 3.5-5.0 Anion Gap TNP mmol/L N 2-11 Ast TNP U/L N 13-39 Laboratory test 03/30/2016 [facility] Magnesium 2.1 mg/dL N 1.9-2.7 47 finding [phone] Troponin-I (TnI) 0.00 ng/mL N <0.04 48 TSH (Thyroid Stimulating Horm) 8.60 mcIU/mL High 0.34-5.60 49 Lactic Acid 3.2 mmol/L High 0.5-2.0 50 Valproic Acid (Depakene) 121.0 g/mL High 50-100 51 CBC Auto Diff 03/30/2016 [facility] White Blood 5.0 10^3/uL N 3.5-10.8 [phone] Count Red Blood Count 4.02 10^6/uL N 4.0-5.4 Hemoglobin 13.8 g/dL Low 14.0-18.0 Hematocrit 42 % N 42-52 Mean Corpuscular Volume 104 fL High 80-94 Mean Corpuscular Hemoglobin 34 pg High 27-31 Mean Corpuscular HGB Conc 33 g/dL N 31-36 Red Cell Distribution Width 15 % N 10.5-15 Platelet Count 146 10^3/uL Low 150-450 Mean Platelet Volume 10 um3 N 7.4-10.4 Abs Neutrophils 2.8 10^3/uL N 1.5-7.7 Abs Lymphocytes 1.6 10^3/uL N 1.0-4.8 Abs Monocytes 0.4 10^3/uL N 0-0.8 Abs Eosinophils 0.1 10^3/uL N 0-0.6 Abs Basophils 0 10^3/uL N 0-0.2 Abs Nucleated RBC 0.01 10^3/uL N Granulocyte % 55.6 % N 38-83 Lymphocyte % 32.6 % N 25-47 Monocyte % 8.3 % N 1-9 Eosinophil % 2.9 % N 0-6 Basophil % 0.6 % N 0-2 Nucleated Red Blood Cells % 0.3 N Inr/Protime 03/30/2016 [facility] Inr 2.66 High 0.89-1.11 [phone] Inr/Protime 03/26/2016 [facility] Inr 3.50 High 0.89-1.11 [phone] Inr/Protime 03/12/2016 [facility] Inr 2.89 High 0.89-1.11 [phone] Inr/Protime 03/05/2016 [facility] Inr 2.33 High 0.89-1.11 [phone] Inr/Protime 02/25/2016 [facility] Inr 1.68 High 0.89-1.11 [phone] Inr/Protime 02/07/2016 [facility] Inr 3.39 High 0.89-1.11 [phone] Inr/Protime 01/30/2016 [facility] Inr 3.82 High 0.89-1.11 [phone] Inr/Protime 01/23/2016 [facility] Inr 3.33 High 0.89-1.11 [phone] Inr/Protime 01/15/2016 [facility] Inr 3.53 High 0.89-1.11 [phone] Inr/Protime 01/08/2016 [facility] Inr 2.73 High 0.89-1.11 [phone] Inr/Protime 12/27/2015 [facility] Inr 3.42 High 0.89-1.11 [phone] Inr/Protime 12/12/2015 [facility] Inr 2.75 High 0.89-1.11 [phone] Inr/Protime 12/03/2015 [facility] Inr 2.17 High 0.89-1.11 [phone] Laboratory test 11/27/2015 [facility] Lactic Acid 2.3 High 0.5-2.0 52 finding [phone] mmol/L B Type Natriuretic Peptide 167 pg/mL High 53 Troponin I 0.00 ng/mL N <0.03 54 Laboratory test 11/27/2015 [facility] Inr/Protime 2.04 High 0.89-1.11 finding [phone] Partial Thrombo Time PTT 34.6 seconds N 26.0-36.3 Comp Metabolic Panel 11/27/2015 [facility] Sodium 136 mmol/L N 133-145 [phone] Potassium 4.2 mmol/L N 3.5-5.0 Chloride 103 mmol/L N 101-111 Co2 Carbon Dioxide 25 mmol/L N 22-32 Anion Gap 8 mmol/L N 2-11 Glucose 101 mg/dL High 70-100 Blood Urea Nitrogen 11 mg/dL N 6-24 Creatinine 0.98 mg/dL N 0.67-1.17 BUN/Creatinine Ratio 11.2 N 8-20 Calcium 9.0 mg/dL N 8.6-10.3 Total Protein 7.2 g/dL N 6.4-8.9 Albumin 3.8 g/dL N 3.2-5.2 Globulin 3.4 g/dL N 2-4 Albumin/Globulin Ratio 1.1 N 1-3 Total Bilirubin 0.90 mg/dL N 0.2-1.0 Alkaline Phosphatase 59 U/L N 34-104 Alt 16 U/L N 7-52 Ast 23 U/L N 13-39 Egfr Non- 75.6 N >60 Egfr 97.2 N >60 55 Laboratory test 11/27/2015 [facility] Magnesium 1.8 mg/dL Low 1.9-2.7 finding [phone] TSH (Thyroid Stim Horm) 2.59 mcIU/mL N 0.34-5.60 Vitamin B12 789 pg/mL N 180-914 56 CBC Auto Diff 11/27/2015 [facility] White Blood 7.9 10^3/uL N 3.5-10.8 [phone] Count Red Blood Count 3.65 10^6/uL Low 4.0-5.4 Hemoglobin 13.2 g/dL Low 14.0-18.0 Hematocrit 39 % Low 42-52 Mean Corpuscular Volume 107 fL High 80-94 57 Mean Corpuscular Hemoglobin 36 pg High 27-31 Mean Corpuscular HGB Conc 34 g/dL N 31-36 Red Cell Distribution Width 14 % N 10.5-15 Platelet Count 164 10^3/uL N 150-450 Mean Platelet Volume 9 um3 N 7.4-10.4 Abs Neutrophils 5.9 10^3/uL N 1.5-7.7 Abs Lymphocytes 0.9 10^3/uL Low 1.0-4.8 Abs Monocytes 0.7 10^3/uL N 0-0.8 Abs Eosinophils 0.4 10^3/uL N 0-0.6 Abs Basophils 0 10^3/uL N 0-0.2 Abs Nucleated RBC 0 10^3/uL N Granulocyte % 74.8 % N 38-83 Lymphocyte % 11.0 % Low 25-47 Monocyte % 8.8 % N 1-9 Eosinophil % 4.9 % N 0-6 Basophil % 0.5 % N 0-2 Nucleated Red Blood Cells % 0 N Inr/Protime 11/23/2015 [facility] Inr 2.11 High 0.89-1.11 [phone] Inr/Protime 11/16/2015 [facility] Inr 1.82 High 0.89-1.11 [phone] Inr/Protime 11/08/2015 [facility] Inr 3.40 High 0.89-1.11 [phone] Inr/Protime 11/01/2015 [facility] Inr 3.07 High 0.89-1.11 [phone] Inr/Protime 10/24/2015 [facility] Inr 3.28 High 0.89-1.11 [phone] Inr/Protime 10/17/2015 [facility] Inr 3.21 High 0.89-1.11 [phone] Inr/Protime 10/09/2015 [facility] Inr 3.21 High 0.89-1.11 [phone] Inr/Protime 09/28/2015 [facility] Inr 2.36 High 0.89-1.11 58 [phone] Inr/Protime 09/21/2015 [facility] Inr 1.75 High 0.89-1.11 59 [phone] CBC Auto Diff 09/14/2015 [facility] White Blood 7.7 N 3.5-10.8 60 [phone] Count 10^3/uL Red Blood Count 3.69 10^6/uL Low 4.0-5.4 Hemoglobin 13.3 g/dL Low 14.0-18.0 Hematocrit 40 % Low 42-52 Mean Corpuscular Volume 108 fL High 80-94 Mean Corpuscular Hemoglobin 36 pg High 27-31 Mean Corpuscular HGB Conc 33 g/dL N 31-36 Red Cell Distribution Width 15 % N 10.5-15 Platelet Count 150 10^3/uL N 150-450 Mean Platelet Volume 10 um3 N 7.4-10.4 Abs Neutrophils 5.7 10^3/uL N 1.5-7.7 Abs Lymphocytes 0.9 10^3/uL Low 1.0-4.8 Abs Monocytes 0.7 10^3/uL N 0-0.8 Abs Eosinophils 0.3 10^3/uL N 0-0.6 Abs Basophils 0 10^3/uL N 0-0.2 Abs Nucleated RBC 0.02 10^3/uL N Granulocyte % 74.3 % N 38-83 Lymphocyte % 12.2 % Low 25-47 Monocyte % 8.8 % N 1-9 Eosinophil % 4.4 % N 0-6 Basophil % 0.3 % N 0-2 Nucleated Red Blood Cells % 0.3 N Comp Metabolic Panel 09/14/2015 [facility] Sodium 136 mmol/L N 133-145 [phone] Potassium 3.9 mmol/L N 3.5-5.0 Chloride 102 mmol/L N 101-111 Co2 Carbon Dioxide 24 mmol/L N 22-32 Anion Gap 10 mmol/L N 2-11 Glucose 76 mg/dL N 70-100 Blood Urea Nitrogen 10 mg/dL N 6-24 Creatinine 0.74 mg/dL N 0.67-1.17 BUN/Creatinine Ratio 13.5 N 8-20 Calcium 8.5 mg/dL Low 8.6-10.3 Total Protein 6.8 g/dL N 6.4-8.9 Albumin 3.6 g/dL N 3.2-5.2 Globulin 3.2 g/dL N 2-4 Albumin/Globulin Ratio 1.1 N 1-3 Total Bilirubin 0.70 mg/dL N 0.2-1.0 Alkaline Phosphatase 56 U/L N 34-104 Alt 18 U/L N 7-52 Ast 23 U/L N 13-39 Egfr Non- 104.9 N >60 Egfr 134.9 N >60 61 Laboratory test 09/14/2015 [facility] TSH (Thyroid 2.67 N 0.34-5.60 62 finding [phone] Stimulating mcIU/mL Horm) Vitamin D Total 25(Oh) 31.1 ng/mL N 30-50 63 Vitamin B12 257 pg/mL N 180-914 64 Inr/Protime 09/13/2015 [facility] Inr 1.29 High 0.89-1.11 65 [phone] Inr/Protime 09/05/2015 [facility] Inr 1.43 High 0.89-1.11 66 [phone] Laboratory test 08/16/2015 [facility] Magnesium 2.0 N 1.9-2.7 67, 68 finding [phone] mg/dL Basic Metabolic 08/16/2015 [facility] Sodium 138 N 133-145 Panel [phone] mmol/L Potassium 5.0 mmol/L N 3.5-5.0 Chloride 103 mmol/L N 101-111 Co2 Carbon Dioxide 27 mmol/L N 22-32 Anion Gap 8 mmol/L N 2-11 Glucose 107 mg/dL High 70-100 Blood Urea Nitrogen 13 mg/dL N 6-24 Creatinine 0.83 mg/dL N 0.67-1.17 BUN/Creatinine Ratio 15.7 N 8-20 Calcium 9.4 mg/dL N 8.6-10.3 Egfr Non- 91.9 N >60 Egfr 118.1 N >60 69 Inr/Protime 08/06/2015 [facility] Inr 2.05 High 0.89-1.11 70 [phone] Inr/Protime 07/26/2015 [facility] Inr 1.51 High 0.89-1.11 71 [phone] Inr/Protime 06/21/2015 [facility] Inr 2.27 High 0.89-1.11 72 [phone] Inr/Protime 06/14/2015 [facility] Inr 1.70 High 0.89-1.11 73 [phone] Inr/Protime 06/04/2015 [facility] Inr 1.66 High 0.89-1.11 74 [phone] Lyme Western 05/10/2015 [facility] Lyme Negative N Negative Blot [phone] Disease IgG Ab WB Lyme Disease IgG Bands Present No bands detecte <SEE NOTE> kDa N 75 Lyme Disease IgM Ab WB Negative N Negative Lyme Disease IgM Bands Present No bands detecte <SEE NOTE> kDa N 76 Lyme Disease Interpretation See Comment N 77 Inr/Protime 05/10/2015 [facility] Inr 2.13 High 0.89-1.11 [phone] CBC Auto Diff 05/05/2015 [facility] White Blood 6.6 N 3.5-10.8 [phone] Count 10^3/uL Red Blood Count 3.66 10^6/uL Low 4.0-5.4 Hemoglobin 13.0 g/dL Low 14.0-18.0 Hematocrit 38 % Low 42-52 Mean Corpuscular Volume 104 fL High 80-94 Mean Corpuscular Hemoglobin 35 pg High 27-31 Mean Corpuscular HGB Conc 34 g/dL N 31-36 Red Cell Distribution Width 14 % N 10.5-15 Platelet Count 129 10^3/uL Low 150-450 Mean Platelet Volume 10 um3 N 7.4-10.4 Abs Neutrophils 4.7 10^3/uL N 1.5-7.7 Abs Lymphocytes 1.1 10^3/uL N 1.0-4.8 Abs Monocytes 0.6 10^3/uL N 0-0.8 Abs Eosinophils 0.2 10^3/uL N 0-0.6 Abs Basophils 0 10^3/uL N 0-0.2 Abs Nucleated RBC 0 10^3/uL N Granulocyte % 71.4 % N 38-83 Lymphocyte % 16.5 % Low 25-47 Monocyte % 8.5 % N 1-9 Eosinophil % 2.9 % N 0-6 Basophil % 0.7 % N 0-2 Nucleated Red Blood Cells % 0.1 N Inr/Protime 05/05/2015 [facility] Inr 2.65 High 0.89-1.11 [phone] Laboratory test 05/05/2015 [facility] Partial 41.2 High 26.0-36.3 finding [phone] Thrombo seconds Time PTT B Type Natriuretic Peptide 187 pg/mL High 78 Comp Metabolic Panel 05/05/2015 [facility] Sodium 133 mmol/L N 133-145 [phone] Potassium 3.9 mmol/L N 3.5-5.0 Chloride 98 mmol/L Low 101-111 Co2 Carbon Dioxide 23 mmol/L N 22-32 Anion Gap 12 mmol/L High 2-11 Glucose 111 mg/dL High 70-100 Blood Urea Nitrogen 14 mg/dL N 6-24 Creatinine 1.00 mg/dL N 0.67-1.17 BUN/Creatinine Ratio 14.0 N 8-20 Calcium 8.7 mg/dL N 8.6-10.3 Total Protein 7.0 g/dL N 6.4-8.9 Albumin 3.9 g/dL N 3.2-5.2 Globulin 3.1 g/dL N 2-4 Albumin/Globulin Ratio 1.3 N 1-3 Total Bilirubin 0.80 mg/dL N 0.2-1.0 Alkaline Phosphatase 55 U/L N 34-104 Alt 17 U/L N 7-52 Ast 28 U/L N 13-39 Egfr Non- 74.1 N >60 Egfr 95.3 N >60 79 Laboratory test 05/05/2015 [facility] Phosphorus 3.3 mg/dL N 2.5-5.0 finding [phone] Magnesium 2.0 mg/dL N 1.9-2.7 Digoxin 1.3 ng/ml N 0.8-2.0 Troponin I 0.03 ng/mL High <0.03 80 TSH (Thyroid Stim Horm) 2.86 ?IU/mL N 0.34-5.60 Free T4 0.95 ng/dL N 0.61-1.12 Inr/Protime 04/24/2015 [facility] Inr 2.19 High 0.89-1.11 [phone] Inr/Protime 04/17/2015 [facility] Inr 1.79 High 0.89-1.11 [phone] Inr/Protime 03/19/2015 [facility] Inr 2.54 High 0.89-1.11 [phone] Inr/Protime 02/26/2015 [facility] Inr 2.54 High 0.89-1.11 [phone] Inr/Protime 02/12/2015 [facility] Inr 2.76 High 0.89-1.11 [phone] Inr/Protime 02/05/2015 [facility] Inr 1.93 High 0.89-1.11 [phone] Inr/Protime 01/29/2015 [facility] Inr 1.90 High 0.89-1.11 [phone] Inr/Protime 01/22/2015 [facility] Inr 1.57 High 0.89-1.11 [phone] Inr/Protime 01/15/2015 [facility] Inr 1.55 High 0.89-1.11 [phone] Lyme Western 01/01/2015 [facility] Lyme Disease Negative N Negative Blot [phone] IgG Ab WB Lyme Disease IgG Bands Present No bands detecte <SEE NOTE> kDa N 81 Lyme Disease IgM Ab WB Negative N Negative Lyme Disease IgM Bands Present No bands detecte <SEE NOTE> kDa N 82 Lyme Disease Interpretation See Comment N 83 Comp Metabolic Panel 01/01/2015 [facility] Sodium 136 mmol/L N 133-145 [phone] Potassium 4.7 mmol/L N 3.5-5.0 Chloride 102 mmol/L N 101-111 Co2 Carbon Dioxide 29 mmol/L N 22-32 Anion Gap 5 mmol/L N 2-11 Glucose 99 mg/dL N 70-100 Blood Urea Nitrogen 12 mg/dL N 6-24 Creatinine 0.80 mg/dL N 0.67-1.17 BUN/Creatinine Ratio 15.0 N 8-20 Calcium 9.5 mg/dL N 8.6-10.3 Total Protein 7.5 g/dL N 6.4-8.9 Albumin 4.4 g/dL N 3.2-5.2 Globulin 3.1 g/dL N 2-4 Albumin/Globulin Ratio 1.4 N 1-3 Total Bilirubin 0.90 mg/dL N 0.2-1.0 Alkaline Phosphatase 64 U/L N 34-104 Alt 24 U/L N 7-52 Ast 28 U/L N 13-39 Egfr Non- 95.8 N >60 Egfr 123.3 N >60 84 Inr/Protime 01/01/2015 [facility] Inr 2.01 High 0.89-1.11 85 [phone] Inr/Protime 12/25/2014 [facility] Inr 3.47 High 0.89-1.11 86 [phone] Inr/Protime 11/23/2014 [facility] Inr 2.77 High 0.78-1.07 [phone] Inr/Protime 10/26/2014 [facility] Inr 2.05 High 0.78-1.07 [phone] Urine DIP 10/13/2014 In House Lab Specific 1.010 1.01-1.02 [phone] [place] Urine pH 7 High 5-6 Leukocytes ++ Neg Urine Nitrites pos Neg Total Protein, Urine ++ Neg Urine Glucose norm Norm Urine Ketones neg Neg Urobilinogen 1 High Norm Urine Bilirubin ++ Neg Urine Blood about 250 Jorge/uL Neg Laboratory test 10/13/2014 [facility] Urine Culture And SEE RESULT 87 finding [phone] Sensitivities BELOW Urinalysis 10/13/2014 [facility] Urine Color Tessie N Profile [phone] Urine Appearance Cloudy N Urine Specific [place] 1.016 N 1.010-1.030 Urine pH 6.0 N 5-9 Urine Urobilinogen Positive Abnormal Negative Urine Ketones Negative N Negative Urine Protein 1+(30 mg/dL) Abnormal Negative Urine Leukocytes 1+ Abnormal Negative Urine Blood 2+ Abnormal Negative Urine Nitrite Positive Abnormal Negative Urine Bilirubin Negative N Negative Urine Glucose Negative N Negative Urine White Blood Cell 3+(>20/hpf) Abnormal Absent Urine Red Blood Cell 3+(>10/hpf) Abnormal Absent Urine Bacteria 1+ Abnormal Absent Inr/Protime 09/28/2014 [facility] Inr 2.30 High 0.78-1.07 [phone] Inr/Protime 09/14/2014 [facility] Inr 2.34 High 0.78-1.07 [phone] Inr/Protime 09/06/2014 [facility] Inr 1.88 High 0.78-1.07 [phone] Inr/Protime 08/23/2014 [facility] Inr 1.93 High 0.78-1.07 [phone] Inr/Protime 08/14/2014 [facility] Inr 1.84 High 0.78-1.07 [phone] Inr/Protime 07/17/2014 [facility] Inr 2.01 High 0.78-1.07 [phone] Inr/Protime 06/15/2014 [facility] Inr 2.29 High 0.78-1.07 [phone] Inr/Protime 06/01/2014 [facility] Inr 1.89 High 0.78-1.07 [phone] Inr/Protime 05/18/2014 [facility] Inr 1.90 High 0.78-1.07 [phone] Inr/Protime 04/26/2014 [facility] Inr 2.39 High 0.78-1.07 [phone] Inr/Protime 04/18/2014 [facility] Inr 2.08 High 0.78-1.07 [phone] Inr/Protime 04/10/2014 [facility] Inr 2.28 High 0.78-1.07 [phone] Inr/Protime 04/03/2014 [facility] Inr 3.10 High 0.78-1.07 88 [phone] Laboratory test 04/03/2014 [facility] Hemoglobin A1c 6.4 % High Less than 89 finding [phone] 6.0 Inr/Protime 03/27/2014 [facility] Inr 6.43 High 0.78-1.07 90 [phone] Laboratory test 03/14/2014 [facility] Lipase 84 U/L High 11.0-82.0 finding [phone] Amylase 51 U/L N 29-103 Comp Metabolic Panel 03/14/2014 [facility] Sodium 138 mmol/L N 133-145 [phone] Potassium 4.5 mmol/L N 3.5-5.0 Chloride 107 mmol/L N 101-111 Co2 Carbon Dioxide 25 mmol/L N 22-32 Anion Gap 6 mmol/L N 2-11 Glucose 101 mg/dL High 70-100 Blood Urea Nitrogen 16 mg/dL N 6-24 Creatinine 0.85 mg/dL N 0.67-1.17 BUN/Creatinine Ratio 18.8 N 8-20 Calcium 9.1 mg/dL N 8.6-10.3 Total Protein 7.3 g/dL N 6.4-8.9 Albumin 4.4 g/dL N 3.2-5.2 Globulin 2.9 g/dL N 2-4 Albumin/Globulin Ratio 1.5 N 1-3 Total Bilirubin 0.60 mg/dL N 0.2-1.0 Alkaline Phosphatase 69 U/L N 34-104 Alt 26 U/L N 7-52 Ast 30 U/L N 13-39 Egfr Non- 89.6 N >60 Egfr 115.3 N >60 91 CBC Auto Diff 03/14/2014 [facility] White Blood 6.4 10^3/uL N 4.8-10.8 [phone] Count Red Blood Count 4.37 10^6/uL N 4.0-5.4 Hemoglobin 15.2 g/dL N 14.0-18.0 Hematocrit 45 % N 42-52 Mean Corpuscular Volume 104 fL High 80-94 Mean Corpuscular Hemoglobin 35 pg High 27-31 Mean Corpuscular HGB Conc 33 g/dL N 31-36 Red Cell Distribution Width 15 % N 10.5-15 Platelet Count 163 10^3/uL N 150-450 Mean Platelet Volume 10 um3 N 7.4-10.4 Abs Neutrophils 4.7 10^3/uL N 1.5-7.7 Abs Lymphocytes 0.8 10^3/uL Low 1.0-4.8 Abs Monocytes 0.7 10^3/uL N 0-0.8 Abs Eosinophils 0.1 10^3/uL N 0-0.6 Abs Basophils 0 10^3/uL N 0-0.2 Abs Nucleated RBC 0 10^3/uL N Granulocyte % 74.0 % N 38-83 Lymphocyte % 13.1 % Low 25-47 Monocyte % 10.9 % High 1-9 Eosinophil % 1.5 % N 0-6 Basophil % 0.5 % N 0-2 Nucleated Red Blood Cells % 0.1 N Stool For 03/14/2014 [facility] Stool Occult Blood ( SEE NOTE) 92, 93 Blood [phone] Stool Panel 03/14/2014 [facility] Fecal Lactoferrin ( SEE NOTE) 94 (CMC) [phone] (Stool WBC) O P: Giardia/Cryptospor Screen (SEE NOTE) 95 Stool Culture (SEE NOTE) 96 Laboratory test 03/14/2014 [facility] C. difficile ( SEE NOTE) 97 finding [phone] Amplified Dna Inr/Protime 03/10/2014 [facility] Inr 1.29 High 0.78- 98 [phone] 1.07 Surgical 02/27/2014 [facility] S RUN DATE: 99 Pathology [phone] 03/01/ <SEE NOTE> Clotest 02/27/2014 [facility] Clotest (SEE NOTE) 100 [phone] Basic Metabolic 02/06/2014 [facility] Sodium 137 mmol /L N 133-1 Panel [phone] Potassium 4.9 mmol/L N 3.5-5.0 Chloride 107 mmol/L N 101-111 Co2 Carbon Dioxide 25 mmol/L N 22-32 Anion Gap 5 mmol/L N 2-11 Glucose 118 mg/dL High 70-100 Blood Urea Nitrogen 12 mg/dL N 6-24 Creatinine 0.84 mg/dL N 0.67-1.17 BUN/Creatinine Ratio 14.3 N 8-20 Calcium 8.7 mg/dL N 8.6-10.3 Egfr Non- 90.9 N >60 Egfr 116.9 N >60 101 Inr/Protime 02/06/2014 [facility] Inr 2.66 High 0.85-1.06 [phone] Inr/Protime 01/17/2014 [facility] Inr 2.50 High 0.85-1.06 [phone] Inr/Protime 01/04/2014 [facility] Inr 2.04 High 0.85-1.06 [phone] Inr/Protime 12/28/2013 [facility] Inr 1.75 High 0.85-1.06 [phone] Urine Culture And 12/07/2013 [facility] Urine (SEE 102 Sensitivities [phone] Culture NOTE) Urine Culture And 11/23/2013 [facility] Urine (SEE 103 Sensitivities [phone] Culture NOTE) Urine DIP 11/23/2013 In House Lab Specific 1.015 1.01-1.02 (607)- - [place] Urine pH 6 5-6 Leukocytes NEG Neg Urine Nitrites POS Neg Total Protein, Urine NEG Neg Urine Glucose NORM Norm Urine Ketones NEG Neg Urobilinogen NORM Norm Urine Bilirubin NEG Neg Urine Blood TRACE Neg CBC Auto Diff 11/23/2013 [facility] White Blood 5.8 10^3/uL N 4.8-10.8 [phone] Count Red Blood Count 3.91 10^6/uL Low 4.0-5.4 Hemoglobin 13.3 g/dL Low 14.0-18.0 Hematocrit 40 % Low 42-52 Mean Corpuscular Volume 102 fL High 80-94 Mean Corpuscular Hemoglobin 34 pg High 27-31 Mean Corpuscular HGB Conc 33 g/dL N 31-36 Red Cell Distribution Width 15 % N 10.5-15 Platelet Count 139 10^3/uL Low 150-450 Mean Platelet Volume 10 um3 N 7.4-10.4 Abs Neutrophils 3.6 10^3/uL N 1.5-7.7 Abs Lymphocytes 1.4 10^3/uL N 1.0-4.8 Abs Monocytes 0.5 10^3/uL N 0-0.8 Abs Eosinophils 0.2 10^3/uL N 0-0.6 Abs Basophils 0.1 10^3/uL N 0-0.2 Abs Nucleated RBC 0 10^3/uL N Granulocyte % 62.3 % N 38-83 Lymphocyte % 23.4 % Low 25-47 Monocyte % 9.4 % High 1-9 Eosinophil % 3.9 % N 0-6 Basophil % 1.0 % N 0-2 Nucleated Red Blood Cells % 0.1 N Iron & Iron Binding 11/23/2013 [facility] Iron 114 g/dL N 50-212 Capacity [phone] Unsaturated Iron Binding 330 g/dL N Total Iron Binding Capacity 444 g/dL N 250-450 % Iron Saturation 26 % N 15-55 Laboratory test 11/23/2013 [facility] Hemoglobin A1c 6.4 % High Less than 104 finding [phone] 6.0 Aldolase 6.0 U/L N <7.7 105 Adeline (Anti-Nuclear AB) Screen Negative N Negative Anti Double Stranded Dna Negative N Negative Erythrocyte Sed Rate 30 mm/Hr N 0-40 C Reactive Protein 4.59 mg/L N < 5.00 106 Creatine Kinase 150 U/L N 10-223 Inr/Protime 11/23/2013 [facility] Inr 2.14 High 0.85-1.06 [phone] Urine Culture And 11/01/2013 [facility] Urine (SEE 107 Sensitivities [phone] Culture NOTE) Urine DIP 11/01/2013 In House Lab Specific 1.005 Low 1.01-1.02 (607)- - [place] Urine pH 8 High 5-6 Leukocytes ++ High Neg Urine Nitrites POS High Neg Total Protein, Urine 100+ High Neg Urine Glucose NORM Norm Urine Ketones NEG Neg Urobilinogen NORM Norm Urine Bilirubin NEG Neg Urine Blood 250 High Neg Laboratory test 11/01/2013 [facility] Magnesium 2.0 mg/dL N 1.9-2.7 finding [phone] Vitamin B12 246 pg/mL N 180-914 108 Comp Metabolic Panel 11/01/2013 [facility] Sodium 139 mmol/L N 133-145 [phone] Potassium 4.3 mmol/L N 3.7-5.6 Chloride 104 mmol/L N 101-111 Co2 Carbon Dioxide 28 mmol/L N 22-32 Anion Gap 7 mmol/L N 2-11 Glucose 133 mg/dL High 70-100 Blood Urea Nitrogen 10 mg/dL N 6-24 Creatinine 0.73 mg/dL N 0.67-1.17 BUN/Creatinine Ratio 13.7 N 8-20 Calcium 8.9 mg/dL N 8.6-10.3 Total Protein 7.2 g/dL N 6.4-8.9 Albumin 4.0 g/dL N 3.2-5.2 Globulin 3.2 g/dL N 2-4 Albumin/Globulin Ratio 1.3 N 1-3 Total Bilirubin 1.00 mg/dL N 0.2-1.0 Alkaline Phosphatase 71 U/L N 34-104 Alt 23 U/L N 7-52 Ast 27 U/L N 13-39 Egfr Non- 106.8 N >60 Egfr 137.4 N >60 109 CBC Auto Diff 11/01/2013 [facility] White Blood 7.7 10^3/uL N 4.8-10.8 [phone] Count Red Blood Count 3.79 10^6/uL Low 4.0-5.4 Hemoglobin 13.2 g/dL Low 14.0-18.0 Hematocrit 39 % Low 42-52 Mean Corpuscular Volume 102 fL High 80-94 Mean Corpuscular Hemoglobin 35 pg High 27-31 Mean Corpuscular HGB Conc 34 g/dL N 31-36 Red Cell Distribution Width 15 % N 10.5-15 Platelet Count 154 10^3/uL N 150-450 Mean Platelet Volume 10 um3 N 7.4-10.4 Abs Neutrophils 5.9 10^3/uL N 1.5-7.7 Abs Lymphocytes 0.8 10^3/uL Low 1.0-4.8 Abs Monocytes 0.8 10^3/uL N 0-0.8 Abs Eosinophils 0.2 10^3/uL N 0-0.6 Abs Basophils 0 10^3/uL N 0-0.2 Abs Nucleated RBC 0.01 10^3/uL N Granulocyte % 76.3 % N 38-83 Lymphocyte % 10.6 % Low 25-47 Monocyte % 10.4 % High 1-9 Eosinophil % 2.2 % N 0-6 Basophil % 0.5 % N 0-2 Nucleated Red Blood Cells % 0.1 N Laboratory test 11/01/2013 [facility] Lyme Disease Negative N Negative 110 finding [phone] Serology Erythrocyte Sed Rate 93 mm/Hr High 0-40 C Reactive Protein 106.18 mg/L High < 5.00 111 Inr/Protime 10/28/2013 [facility] Inr 2.05 High 0.85-1.06 [phone] Inr/Protime 10/13/2013 [facility] Inr 2.17 High 0.85-1.06 [phone] Inr/Protime 09/30/2013 [facility] Inr 1.78 High 0.85-1.06 [phone] Inr/Protime 09/20/2013 [facility] Inr 3.25 High 0.85-1.06 [phone] Inr/Protime 09/05/2013 [facility] Inr 2.03 High 0.85-1.06 [phone] Inr/Protime 08/29/2013 [facility] Inr 1.63 High 0.85-1.06 [phone] Inr/Protime 08/22/2013 [facility] Inr 2.06 High 0.85-1.06 [phone] Inr/Protime 08/15/2013 [facility] Inr 1.93 High 0.85-1.06 [phone] Inr/Protime 08/10/2013 [facility] Inr 4.32 High 0.85-1.06 [phone] Inr/Protime 07/19/2013 [facility] Inr 2.45 High 0.85-1.06 [phone] Inr/Protime 06/20/2013 [facility] Inr 2.58 High 0.85-1.06 [phone] Laboratory test 05/27/2013 [facility] Vitamin B12 173 Low 180-914 112 finding [phone] pg/mL Methylmalonic Acid 0.23 nmol/mL <=0.40 113 Protein 05/27/2013 [facility] Total 7.2 g/dL 6.3 - Electrophoresis [phone] Protein(Pep) 7.9 Albumin 3.4 g/dL 3.4-4.7 Alpha-1 Globulin 0.2 g/dL 0.1-0.3 Alpha-2 Globulin 1.2 g/dL Abnormal 0.6-1.0 Beta Globulin 1.1 g/dL 0.7-1.2 Gamma Globulin 1.3 g/dL 0.6-1.6 Albumin/Globulin Ratio 0.90 Impression See Comment 114 Immunofixation See Comment 115 Comp Metabolic Panel 05/27/2013 [facility] Sodium 139 mmol/L 133-145 [phone] Potassium 4.4 mmol/L 3.7-5.6 Chloride 104 mmol/L 101-111 Co2 Carbon Dioxide 28 mmol/L 22-32 Anion Gap 7 mmol/L 2-11 Glucose 92 mg/dL 70-100 Blood Urea Nitrogen 12 mg/dL 6-24 Creatinine 0.81 mg/dL 0.67-1.17 BUN/Creatinine Ratio 14.8 8-20 Calcium 8.9 mg/dL 8.6-10.3 Total Protein 6.9 g/dL 6.4-8.9 Albumin 4.4 g/dL 3.2-5.2 Globulin 2.5 g/dL 2-4 Albumin/Globulin Ratio 1.8 1-3 Total Bilirubin 1.10 mg/dL High 0.2-1.0 Alkaline Phosphatase 52 U/L 34-104 Alt 44 U/L 7-52 Ast 38 U/L 13-39 Egfr Non- 95.1 >60 Egfr 122.2 >60 116 Laboratory test 05/27/2013 [facility] Hemoglobin A1c 6.2 % High Less than 117 finding [phone] 6.0 Adeline (Anti-Nuclear AB) Screen Negative Negative Erythrocyte Sed Rate 22 mm/Hr 0-40 Syphilis 05/27/2013 [facility] Syphilis IgG Nonreactive Nonreactive 118 Screen [phone] RPR TNP Nonreactive RPR Titer TNP Pediatric/Maternal NO Laboratory 05/27/2013 [facility] Hepatitis C Nonreactive Nonreactive 119 test finding [phone] Antibody Hepatitis Be Antibody Negative Negative 120 Inr/Protime 05/27/2013 [facility] Inr 2.68 High 0.85-1.06 [phone] Heavy Metal Blool 05/27/2013 [facility] Arsenic Not Detected 0-12 [phone] ng/mL Lead 4 g/dL 0-9 Mercury <1 ng/mL 0-9 Cadmium 0.4 ng/mL 0.0-4.9 Street [address] [place] [address] [address] <SEE NOTE> [address] [facility] [address] [facility] [place] First Name KIANNA Guardian Last Name HILARY Home Phone [phone] Venous/Capillary Heavy Metals VENOUS Patient Race CA 122 Inr/Protime 05/12/2013 [facility] Inr 3.16 High 0.85-1.06 [phone] Lipid Profile 04/11/2013 [facility] Triglycerides 249 123 (Trig/Chol/HDL) [phone] mg/dL Cholesterol 105 mg/dL 124 HDL Cholesterol 37.3 mg/dL 125 LDL Cholesterol 18 mg/dL 126 Laboratory test 04/11/2013 [facility] Magnesium 1.9 mg/dL 1.9-2.7 finding [phone] TSH (Thyroid Stimulating Horm) 2.23 IU/mL 0.34-5.60 Creatine Kinase 129 U/L 10-223 Comp Metabolic Panel 04/11/2013 [facility] Sodium 137 mmol/L 133-145 [phone] Potassium 5.1 mmol/L 3.7-5.6 Chloride 104 mmol/L 101-111 Co2 Carbon Dioxide 27 mmol/L 22-32 Anion Gap 6 mmol/L 2-11 Glucose 112 mg/dL High 70-100 Blood Urea Nitrogen 9 mg/dL 6-24 Creatinine 0.78 mg/dL 0.67-1.17 BUN/Creatinine Ratio 11.5 8-20 Calcium 9.1 mg/dL 8.6-10.3 Total Protein 6.8 g/dL 6.4-8.9 Albumin 4.0 g/dL 3.2-5.2 Globulin 2.8 g/dL 2-4 Albumin/Globulin Ratio 1.4 1-3 Total Bilirubin 0.60 mg/dL 0.2-1.0 Alkaline Phosphatase 54 U/L 34-104 Alt 19 U/L 7-52 Ast 26 U/L 13-39 Egfr Non- 99.3 >60 Egfr 127.7 >60 127 Inr/Protime 04/11/2013 [facility] Inr 2.59 High 0.85-1.06 [phone] Inr/Protime 03/15/2013 [facility] Inr 2.09 High 0.85-1.06 [phone] Inr/Protime 02/15/2013 [facility] Inr 2.35 High 0.85-1.06 [phone] Inr/Protime 01/19/2013 [facility] Inr 2.72 High 0.85-1.06 128 [phone] Inr/Protime 01/05/2013 [facility] Inr 3.87 High 0.85-1.06 129 [phone] Inr/Protime 12/23/2012 [facility] Inr 3.06 High 0.85-1.06 130 [phone] Inr/Protime 12/09/2012 [facility] Inr 1.92 High 0.85-1.06 131 [phone] Inr/Protime 11/10/2012 [facility] Inr 2.70 High 0.87-0.97 [phone] Inr/Protime 10/27/2012 [facility] Inr 3.35 High 0.87-0.97 [phone] Inr/Protime 10/20/2012 [facility] Inr 1.79 High 0.87-0.97 [phone] 1 [id number] 2 [id number] 3 [id number] 4 [id number] 5 Desirable: <150 Borderline High: 150-199 High: 200-499 Very High: >500 6 Desirable: <200 Borderline High: 200-239 High: >239 7 Low: <40 Desirable: 40-60 High: >60 8 Desirable: <100 Near Optimal: 100-129 Borderline High: 130-159 High: 160-189 Very High: >189 9 Because ethnic data is not always readily available, this report includes an eGFR for both -Americans and non- Americans. The National Kidney Disease Education Program (NKDEP) does not endorse the use of the MDRD equation for patients that are not between the ages of 18 and 70, are , have extremes of body size, muscle mass, or nutritional status, or are non- or non-. According to the National Kidney Foundation, irrespective of diagnosis, the stage of the disease is based on the level of kidney function: Stage Description GFR(mL/min/1.73 m(2)) 1 Kidney damage with normal or decreased GFR 90 2 Kidney damage with mild decrease in GFR 60-89 3 Moderate decrease in GFR 30-59 4 Severe decrease in GFR 15-29 5 Kidney failure <15 (or dialysis) 10 Consistent with Previous Results Reported on 07/23/16 11 [id number] 12 [id number] 13 [id number] 14 [id number] 15 [id number] 16 [id number] 17 [id number] 18 [id number] 19 [id number] 20 [id number] 21 [id number] 22 [id number] 23 [id number] 24 [id number] 25 [id number] 26 [id number] 27 Because ethnic data is not always readily available, this report includes an eGFR for both -Americans and non- Americans. The National Kidney Disease Education Program (NKDEP) does not endorse the use of the MDRD equation for patients that are not between the ages of 18 and 70, are , have extremes of body size, muscle mass, or nutritional status, or are non- or non-. According to the National Kidney Foundation, irrespective of diagnosis, the stage of the disease is based on the level of kidney function: Stage Description GFR(mL/min/1.73 m(2)) 1 Kidney damage with normal or decreased GFR 90 2 Kidney damage with mild decrease in GFR 60-89 3 Moderate decrease in GFR 30-59 4 Severe decrease in GFR 15-29 5 Kidney failure <15 (or dialysis) 28 Please note the change in INR reference range effective 17. 29 Please note the change in INR reference range effective 17. 30 Please note the change in INR reference range effective 17. 31 Consistent with previous results on 05/21/16. 32 [facility] Severe Sepsis and Septic Shock Management Bundle Measure requires all lactic acids initially measuring >2.0 mmol/L be repeated. 33 >100 to <200 pg/mL: likely compensated congestive heart failure (CHF) 200 to 400 pg/mL: likely moderate CHF >400 pg/mL: likely moderate to severe CHF 34 Because ethnic data is not always readily available, this report includes an eGFR for both -Americans and non- Americans. The National Kidney Disease Education Program (NKDEP) does not endorse the use of the MDRD equation for patients that are not between the ages of 18 and 70, are , have extremes of body size, muscle mass, or nutritional status, or are non- or non-. According to the National Kidney Foundation, irrespective of diagnosis, the stage of the disease is based on the level of kidney function: Stage Description GFR(mL/min/1.73 m(2)) 1 Kidney damage with normal or decreased GFR 90 2 Kidney damage with mild decrease in GFR 60-89 3 Moderate decrease in GFR 30-59 4 Severe decrease in GFR 15-29 5 Kidney failure <15 (or dialysis) 35 Acute inflammation: >10.00 36 SEE RESULT BELOW Name: SHIN GAMEZ : [address]: Asher Shane MD Acct: [id number] Unit: [id number] AGE: 70 Location: [place] [address] Re07/21/16 SEX: M Status: ADM IN SPEC: [id number] EFREN: 07/21/16-1532 [facility] DR: Hilario Coppola MD REQ: [id number] RECD: 07/21/16 STATUS: RES OTHR DR: Diana Barragan MD _ SOURCE: URINE SPDESC: ORDERED: Urine Culture, Legion Ur Ag, S.pneumo Ur Ag Procedure Result Reported Site Urine Culture PENDING Legionella Urine Antigen Final 07/22/16- 0436 ML Organism 1 Negative Legionella Antigen testing by enzyme immunoassay S.Pneumonia Urine Antigen Final 07/22/16- 0436 ML Organism 1 Negative S. pneumo Antigen Antigen testing by enzyme immunoassay * ML - MAIN LAB ([facility]1) . END OF REPORT * ML=Testing performed at Main Lab DEPARTMENT OF PATHOLOGY, [address] [place] [address] Cameron Rizo M.D. Director [facility] # [id number] 37 SEE RESULT BELOW Name: SHIN GAMEZ : [address]: Uzma Mathew DO Acct: [id number] Unit: [id number] AGE: 70 Location: [place] [address] Re07/21/16 Dis: 07/24/16 SEX: M Status: DIS IN SPEC: [id number] EFREN: 07/21/16-1021 [facility] DR: Hilario Coppola MD REQ: [id number] RECD: 07/21/16 STATUS: ROC CAI DR: Diana Barragan MD _ SOURCE: BLOOD,VENO SPDESC: ORDERED: Blood Cult COMMENTS: Patient is On Antibiotics? NO Procedure Result Reported Site Aerobic Culture Bottle Final 07/26/16- 1028 ML No Growth Day 5 Anaerobic Culture Bottle Final 07/26/16- 1028 ML No Growth Day 5 * ML - MAIN LAB ([facility]1) . END OF REPORT * ML=Testing performed at Main Lab DEPARTMENT OF PATHOLOGY, [address] [place] [address] Cameron Rizo M.D. Director [facility] # [id number] 38 SEE RESULT BELOW Name: SHIN GAMEZ : [address]: Uzma Mathew DO Acct: [id number] Unit: [id number] AGE: 70 Location: [place] [address] Re07/21/16 SEX: M Status: ADM IN SPEC: [id number] EFREN: 07/21/16-1532 [facility] DR: Hilario Coppola MD REQ: [id number] RECD: 07/21/16 STATUS: ROC CAI DR: Diana Barragan MD _ SOURCE: URINE SPDESC: ORDERED: Urine Culture, Legion Ur Ag, S.pneumo Ur Ag Procedure Result Reported Site Urine Culture Final 07/24/16- 0938 ML Organism 1 KLEBSIELLA OXYTOCA [place] Count 25-50,000 (Moderate) CFU/ML Organism 2 ENTEROCOCCUS FAECALIS [place] Count 75-100,000 (Many) CFU/ML 1. KLEBSIELLA OXYTOCA M.I.C. RX --------- ------ Ampicillin >=32 R Cefazolin 8 S Cefepime <=1 S Ceftriaxone <=1 S Ciprofloxacin <=0.25 S Gentamicin <=1 S Levofloxacin <=0.12 S Meropenem <=0.25 S Nitrofurantoin <=16 S Tetracycline <=1 S Pipercillin/Tazobactam <=4 S Trimethoprim/Sulfamethoxazole <=20 S Amoxicillin/Clavulanic Acid 8 S Aztreonam <=1 S CONTINUED ON NEXT PAGE * ML=Testing performed at Main Lab DEPARTMENT OF PATHOLOGY, [address] [place] [address] Cameron Rizo M.D. Director [facility] # [id number] Patient: SHIN GAMEZ [id number] (Continued) Specimen: [id number] Collected: 07/21/16 Received: 07/21/16-1547 (Continued) Procedure Result Reported Site Urine Culture Final (continued) 07/24/16- 937 2. ENTEROCOCCUS FAECALIS [facility].I.C. RX --------- ------ Ampicillin <=2 S Penicillin 4 S Ciprofloxacin 1 S Gentamicin High Level S Levofloxacin 1 S Linezolid 2 S Nitrofurantoin <=16 S * Quinupristin/Dalfopristin 4 R * Streptomycin High Level S Tetracycline <=1 S Doxycycline - Deduced S * Minocycline - Deduced S Tigecycline <=0.12 S Vancomycin 2 S Imipenem-Deduced S * Ampicillin/Sulbactam-Deduced S * These antibiotics are not available in the [facility] Formulary Contact the Microbiology Department for any additional antibiotic reporting. Contact the Microbiology Department for any additional antibiotic reporting. Legionella Urine Antigen Final 07/22/16- 0436 ML Organism 1 Negative Legionella CONTINUED ON NEXT PAGE * ML=Testing performed at Main Lab DEPARTMENT OF PATHOLOGY, [address] [place] [address] Cameron Rizo M.D. Director [facility] # [id number] Patient: SHIN GAMEZ [id number] (Continued) Specimen: [id number] Collected: 07/21/16 Received: 07/21/16 (Continued) Procedure Result Reported Site Legionella Urine Antigen Final (continued) 07/22/16435 Antigen testing by enzyme immunoassay S.Pneumonia Urine Antigen Final 07/22/16435 ML Organism 1 Negative S. pneumo Antigen Antigen testing by enzyme immunoassay * ML - [facility] LAB ([facility]) . END OF REPORT * ML=Testing performed at Main Lab DEPARTMENT OF PATHOLOGY, [address] [place] [address] Cameron Rizo M.D. Director [facility] # [id number] 39 Consistent with previous results on 11/27/15 . 40 Because ethnic data is not always readily available, this report includes an eGFR for both -Americans and non- Americans. The National Kidney Disease Education Program (NKDEP) does not endorse the use of the MDRD equation for patients that are not between the ages of 18 and 70, are , have extremes of body size, muscle mass, or nutritional status, or are non- or non-. According to the National Kidney Foundation, irrespective of diagnosis, the stage of the disease is based on the level of kidney function: Stage Description GFR(mL/min/1.73 m(2)) 1 Kidney damage with normal or decreased GFR 90 2 Kidney damage with mild decrease in GFR 60-89 3 Moderate decrease in GFR 30-59 4 Severe decrease in GFR 15-29 5 Kidney failure <15 (or dialysis) 41 Therapeutic target for the treatment of diabetes Mellitus patients is <7% HBA1C, and in selective patients <6.0%.Please refer to [place] [employer] Diabetic care guidelines for further information. 42 Acute inflammation: >10.00 43 [id number] 45 [id number] 46 Because ethnic data is not always readily available, this report includes an eGFR for both -Americans and non- Americans. The National Kidney Disease Education Program (NKDEP) does not endorse the use of the MDRD equation for patients that are not between the ages of 18 and 70, are , have extremes of body size, muscle mass, or nutritional status, or are non- or non-. According to the National Kidney Foundation, irrespective of diagnosis, the stage of the disease is based on the level of kidney function: Stage Description GFR(mL/min/1.73 m(2)) 1 Kidney damage with normal or decreased GFR 90 2 Kidney damage with mild decrease in GFR 60-89 3 Moderate decrease in GFR 30-59 4 Severe decrease in GFR 15-29 5 Kidney failure <15 (or dialysis) 47 Cancelled. Specimen hemolyzed. Unable to perform test requested. Reorder for specimen recollection. [place]/[facility] was called for recollect at 1712 on 03/30/16 by [id number] 99th percentile=0.04 ng/mL Troponin results at [facility] and [facility] are not interchangeable. 49 Cancelled. Specimen hemolyzed. Unable to perform test requested. Reorder for specimen recollection. [place]/ED was called for recollect at 171 on 03/30/16 by [id number] Critical Result LACT:3.2 Called to [id number] at: 17:13:11 by:[id number] Read back by:[id number] [facility] Severe Sepsis and Septic Shock Management Bundle Measure requires all lactic acids initially measuring >2.0 mmol/L be repeated. 51 Cancelled. Specimen hemolyzed. Unable to perform test requested. Reorder for specimen recollection. [place]/[facility] was called for recollect at 1711 on 03/30/16 by [id number] 52 Critical Result LACT:2.3 Called to [id number] at: 18:25:15 by:[id number] Read back by:[id number] [facility] Severe Sepsis and Septic Shock Management Bundle Measure requires all lactic acids initially measuring >2.0 mmol/L be repeated. 53 >100 to <200 pg/mL: likely compensated congestive heart failure (CHF) 200 to 400 pg/mL: likely moderate CHF >400 pg/mL: likely moderate to severe CHF 54 Reference Range and Interpretation: TnI (ng/mL) Interpretation Less Than 0.03 ng/mL Not supportive of diagnosis of VT 0.03 - 0.50 ng/mL Indeterminate: suggest serial studies if clinically indicated. Greater than 0.5 ng/mL Consistent with diagnosis of VT 55 Because ethnic data is not always readily available, this report includes an eGFR for both -Americans and non- Americans. The National Kidney Disease Education Program (NKDEP) does not endorse the use of the MDRD equation for patients that are not between the ages of 18 and 70, are , have extremes of body size, muscle mass, or nutritional status, or are non- or non-. According to the National Kidney Foundation, irrespective of diagnosis, the stage of the disease is based on the level of kidney function: Stage Description GFR(mL/min/1.73 m(2)) 1 Kidney damage with normal or decreased GFR 90 2 Kidney damage with mild decrease in GFR 60-89 3 Moderate decrease in GFR 30-59 4 Severe decrease in GFR 15-29 5 Kidney failure <15 (or dialysis) 56 Normal Range 180 to 914 Indeterminate Range 145 to 180 Deficient Range <145 57 Consistent with previous results on 8-5. 58 [id number] [facility] 5584 61 Because ethnic data is not always readily available, this report includes an eGFR for both -Americans and non- Americans. The National Kidney Disease Education Program (NKDEP) does not endorse the use of the MDRD equation for patients that are not between the ages of 18 and 70, are , have extremes of body size, muscle mass, or nutritional status, or are non- or non-. According to the National Kidney Foundation, irrespective of diagnosis, the stage of the disease is based on the level of kidney function: Stage Description GFR(mL/min/1.73 m(2)) 1 Kidney damage with normal or decreased GFR 90 2 Kidney damage with mild decrease in GFR 60-89 3 Moderate decrease in GFR 30-59 4 Severe decrease in GFR 15-29 5 Kidney failure <15 (or dialysis) 62 [facility] 5584 63 [facility] 5584 64 Normal Range 180 to 914 Indeterminate Range 145 to 180 Deficient Range <145 65 [id number] 69 Because ethnic data is not always readily available, this report includes an eGFR for both -Americans and non- Americans. The National Kidney Disease Education Program (NKDEP) does not endorse the use of the MDRD equation for patients that are not between the ages of 18 and 70, are , have extremes of body size, muscle mass, or nutritional status, or are non- or non-. According to the National Kidney Foundation, irrespective of diagnosis, the stage of the disease is based on the level of kidney function: Stage Description GFR(mL/min/1.73 m(2)) 1 Kidney damage with normal or decreased GFR 90 2 Kidney damage with mild decrease in GFR 60-89 3 Moderate decrease in GFR 30-59 4 Severe decrease in GFR 15-29 5 Kidney failure <15 (or dialysis) 70 [facility] [id number] 71 [id number] 75 No bands detected 76 No bands detected 77 Specific serologic response to B. burgdorferi infection is not detected, but cannot rule out early infection during which low or undetectable antibody levels to B. burgdorferi may be present. If clinically indicated, a new serum specimen should be submitted in 7-14 days. ADDITIONAL INFORMATION CDC criteria require >=5 bands for IgG or >=2 bands for IgM for the Immunoblot to be considered positive. Bands (e.g.,p41) may be detected in patients without Lyme disease, and patterns not meeting the CDC criteria should be interpreted with caution. Immunoblot should be ordered only on specimens that are positive or equivocal by a FDA-licensed Lyme disease antibody screening test (e.g., EIA). Test Performed by: [place] [address] [facility]: Hilario Yates II, M.D., Ph.D. 78 >100 to <200 pg/mL: likely compensated congestive heart failure (CHF) 200 to 400 pg/mL: likely moderate CHF >400 pg/mL: likely moderate to severe CHF 79 Because ethnic data is not always readily available, this report includes an eGFR for both -Americans and non- Americans. The National Kidney Disease Education Program (NKDEP) does not endorse the use of the MDRD equation for patients that are not between the ages of 18 and 70, are , have extremes of body size, muscle mass, or nutritional status, or are non- or non-. According to the National Kidney Foundation, irrespective of diagnosis, the stage of the disease is based on the level of kidney function: Stage Description GFR(mL/min/1.73 m(2)) 1 Kidney damage with normal or decreased GFR 90 2 Kidney damage with mild decrease in GFR 60-89 3 Moderate decrease in GFR 30-59 4 Severe decrease in GFR 15-29 5 Kidney failure <15 (or dialysis) 80 Reference Range and Interpretation: TnI (ng/mL) Interpretation Less Than 0.03 ng/mL Not supportive of diagnosis of VT 0.03 - 0.50 ng/mL Indeterminate: suggest serial studies if clinically indicated. Greater than 0.5 ng/mL Consistent with diagnosis of VT 81 No bands detected 82 No bands detected 83 Specific serologic response to B. burgdorferi infection is not detected, but cannot rule out early infection during which low or undetectable antibody levels to B. burgdorferi may be present. If clinically indicated, a new serum specimen should be submitted in 7-14 days. ADDITIONAL INFORMATION CDC criteria require >=5 bands for IgG or >=2 bands for IgM for the Immunoblot to be considered positive. Bands (e.g.,p41) may be detected in patients without Lyme disease, and patterns not meeting the CDC criteria should be interpreted with caution. Immunoblot should be ordered only on specimens that are positive or equivocal by a FDA-licensed Lyme disease antibody screening test (e.g., EIA). Test Performed by: [place] [address] [facility]: Hilario Yates II, M.D., Ph.D. 84 Because ethnic data is not always readily available, this report includes an eGFR for both -Americans and non- Americans. The National Kidney Disease Education Program (NKDEP) does not endorse the use of the MDRD equation for patients that are not between the ages of 18 and 70, are , have extremes of body size, muscle mass, or nutritional status, or are non- or non-. According to the National Kidney Foundation, irrespective of diagnosis, the stage of the disease is based on the level of kidney function: Stage Description GFR(mL/min/1.73 m(2)) 1 Kidney damage with normal or decreased GFR 90 2 Kidney damage with mild decrease in GFR 60-89 3 Moderate decrease in GFR 30-59 4 Severe decrease in GFR 15-29 5 Kidney failure <15 (or dialysis) 85 Effective immediately, due to a laboratory mean normal Protime change, the reference range for the INR has changed. 86 Effective immediately, due to a laboratory mean normal Protime change, the reference range for the INR has changed. 87 SEE RESULT BELOW Name: SHIN GAMEZ : [address]: Nate Samayoa III [employer]UM[employer] DEPARTMENT SUPERVISOR Acct: [id number] Unit: [id number] AGE: 69 Location: [facility] Re10/13/14 SEX: M Status: REG REF SPEC: [id number] EFREN: 10/13/14-[address]: Nate Samayoa III H[employer]AN [employer] DEPARTMENT SUPERVISOR REQ: [id number] RECD: 10/13/14 STATUS: COMP _ SOURCE: URINE SPDESC: ORDERED: Urine Culture Procedure Result Verified Site Urine Culture Final 10/15/14- 1153 ML Mixed jessi; possible contamination. Suggest resubmission. * ML - MAIN LAB ([facility]) . END OF REPORT * ML=Testing performed at Main Lab DEPARTMENT OF PATHOLOGY, [facility] [address] [place], [place] [address] Cameron Rizo M.D. Director [facility] # [id number] Please note: Effective March 08, 2014, the reference value for this test has changed due to the validation and activation of a new reagent lot number. 89 Therapeutic target for the treatment of diabetes Mellitus patients is <7% HBA1C, and in selective patients <6.0%.Please refer to [place] [employer] Diabetic care guidelines for further information. 90 Please note: Effective March 08, 2014, the reference value for this test has changed due to the validation and activation of a new reagent lot number. 91 Because ethnic data is not always readily available, this report includes an eGFR for both -Americans and non- Americans. The National Kidney Disease Education Program (NKDEP) does not endorse the use of the MDRD equation for patients that are not between the ages of 18 and 70, are , have extremes of body size, muscle mass, or nutritional status, or are non- or non-. According to the National Kidney Foundation, irrespective of diagnosis, the stage of the disease is based on the level of kidney function: Stage Description GFR(mL/min/1.73 m(2)) 1 Kidney damage with normal or decreased GFR 90 2 Kidney damage with mild decrease in GFR 60-89 3 Moderate decrease in GFR 30-59 4 Severe decrease in GFR 15-29 5 Kidney failure <15 (or dialysis) 92 RECEIVED PLAIN CONTAINER ONLY AND PLACED IN RAINBOW WITHIN 2~HOUR WINDOW OF COLLECTION. 93 RUN DATE: 03/14/14 [facility] LAB LIVE PAGE 1 RUN TIME: [address] [place] [address] Specimen Inquiry Name: SHIN GAMEZ : [address]: Lottie Velásquez NP Acct: [id number] Unit: [id number] AGE: 68 Location: [facility] Re03/14/14 SEX: M Status: REG REF SPEC: [id number] EFREN: 03/14/14-1430 [facility] DR: Lottie Velásquez H[employer] DEPARTMENT SUPERVISOR REQ: [id number] RECD: 03/14/144169 STATUS: RES _ SOURCE: STOOL SPDESC: ORDERED: Hemoccult, Stool Culture, Fecal Lactoferr, C. diff Amp DNA, O P: An/Giovanni COMMENTS: RECEIVED PLAIN CONTAINER ONLY AND PLACED IN RAINBOW WITHIN 2 HOUR WINDOW OF COLLECTION. QUERIES: Provider Requisition # [id number] Procedure Result Verified Site Stool Culture PENDING Stool Specimen Description Final 03/14/14- 1538 ML Stool Color Brown Stool Form Nonformed Stool Consistency Liquid Shiga Toxin 1 2 PENDING C. difficile Amplified DNA PENDING Fecal Lactoferrin (Stool WBC) PENDING Stool Occult Blood Final 03/14/14- 1547 ML Stool Occult Blood Positive O P: Giardia/Cryptospor Screen PENDING END OF REPORT * ML=Testing performed at Main Lab DEPARTMENT OF PATHOLOGY, [facility] [place] [address] Cameron Rizo M.D. Director [facility] # [id number] RUN DATE: 03/15/14 [facility] LAB LIVE PAGE 1 RUN TIME: 1504 [facility] [address] [place] [address] Specimen Inquiry Name: SHIN GAMEZ : [address]: Lottie Velásquez NP Acct: [id number] Unit: [id number] AGE: 68 Location: [facility] Re03/14/14 SEX: M Status: REG REF SPEC: [id number] EFREN: 03/14/140 [facility] DR: Lottie Velásquez NP REQ: [id number] RECD: 03/14/14 STATUS: RES _ SOURCE: STOOL SPDESC: ORDERED: Hemoccult, Stool Culture, Fecal Lactoferr, C. diff Amp DNA, O P: An/Giovanni COMMENTS: RECEIVED PLAIN CONTAINER ONLY AND PLACED IN RAINBOW WITHIN 2 HOUR WINDOW OF COLLECTION. QUERIES: Provider Requisition # [id number] Procedure Result Verified Site Stool Culture PENDING Stool Specimen Description Final 03/14/14- 1538 ML Stool Color Brown Stool Form Nonformed Stool Consistency Liquid Shiga Toxin 1 2 Final 03/15/14- 1158 ML Organism 1 Negative Shiga Toxin 1 2 Immunochromatographic Assay C. difficile Amplified DNA PENDING Fecal Lactoferrin (Stool WBC) Final 03/15/14- 1504 ML Fecal Lactoferrin Positive by Immunoassay TEST LIMITATIONS: Assay detects elevated levels of lactoferrin released from fecal leukocytes as a marker of intestinal inflammation. The test may not be appropriate in immunocompromised persons. Fecal samples from breast fed infants should not be used with this assay. Stool Occult Blood Final 03/14/14- 1547 ML CONTINUED ON NEXT PAGE * ML=Testing performed at Main Lab DEPARTMENT OF PATHOLOGY, [facility] [place], [place] [address] Cameron Rizo M.D. Director [facility] # [id number] RUN DATE: 03/15/14 [facility] LAB LIVE PAGE 2 RUN TIME: 5296 [facility] [address] [place], [place] [address] Specimen Inquiry Patient: SHIN GAMEZ [id number] (Continued) Specimen: [id number] Collected: 03/14/14-1429 Received: 03/14/14-1453 (Continued) Procedure Result Verified Site Stool Occult Blood Final (continued) 03/14/14- 1547 Stool Occult Blood Positive O P: Giardia/Cryptospor Screen Final 03/15/14- 1203 ML Organism 1 Neg Cryptosporidium/Giardia Giardia and cryptosporidium antigen testing performed by enzyme immunoassay. If patient is immunocompromised or has traveled to or is from a developing country, a full ova and parasite exam with microscopic (OPMIC) is recommended. All samples will be held one month in case full ova and parasite testing is requested. Contact the Microbiology Department at [phone]. TEST LIMITATIONS: As with all diagnostic procedures, the results obtained should be used in conjunction with other clinical information available the physician, including confirmation by another method. Negative results can occur in samples containing antigen below lower limits of detection of the assay. One negative specimen does not rule out the possibility of a parasitic infection. To improve detection it is recommended that three specimens be collected on separate days over a period of not more than seven days. The use of colonic washes, aspirates or other diluted sample types has not been established and could affect the performance of the assay. Stool samples contaminated with an oily or particulate base (eg. Barium, mineral oil etc.) could interfere with the test and are not recommended. END OF REPORT * ML=Testing performed at Main Lab DEPARTMENT OF PATHOLOGY, [facility] [place], [place] [address] Cameron Rizo M.D. Director [facility] # [id number] RUN DATE: 03/15/14 [facility] LAB LIVE PAGE 1 RUN TIME: [address] [place] [address] Specimen Inquiry Name: SHIN GAMEZ : [address]: Lottie Velásquez H[employer]AN [employer] DEPARTMENT SUPERVISOR Acct: [id number] Unit: [id number] AGE: 68 Location: [facility] Re03/14/14 SEX: M Status: REG REF SPEC: [id number] EFREN: 03/14/14-[address]: Lottie Velásquez HUMAN [employer] DEPARTMENT SUPERVISOR REQ: [id number] RECD: 03/14/145324 STATUS: RES _ SOURCE: STOOL SPDESC: ORDERED: Hemoccult, Stool Culture, Fecal Lactoferr, C. diff Amp DNA, O P: An/Giovanni COMMENTS: RECEIVED PLAIN CONTAINER ONLY AND PLACED IN RAINBOW WITHIN 2 HOUR WINDOW OF COLLECTION. QUERIES: Provider Requisition # [id number] Procedure Result Verified Site Stool Culture PENDING Stool Specimen Description Final 03/14/14- 1538 ML Stool Color Brown Stool Form Nonformed Stool Consistency Liquid Shiga Toxin 1 2 Final 03/15/14- 1158 ML Organism 1 Negative Shiga Toxin 1 2 Immunochromatographic Assay C. difficile Amplified DNA PENDING Fecal Lactoferrin (Stool WBC) PENDING Stool Occult Blood Final 03/14/14- 1547 ML Stool Occult Blood Positive O P: Giardia/Cryptospor Screen Final 03/15/14- 1203 ML Organism 1 Neg Cryptosporidium/Giardia CONTINUED ON NEXT PAGE * ML=Testing performed at Main Lab DEPARTMENT OF PATHOLOGY, [facility] [place] [address] Cameron Rizo M.D. Director [facility] # [id number] RUN DATE: 03/15/14 [facility] LAB LIVE PAGE 2 RUN TIME: 1203 [facility] [address] [place], [place] [address] Specimen Inquiry Patient: SHIN GAMEZ [id number] (Continued) Specimen: [id number] Collected: 03/14/14 Received: 03/14/14 (Continued) Procedure Result Verified Site O P: Giardia/Cryptospor Screen Final (continued) 03/15/14 120 Giardia and cryptosporidium antigen testing performed by enzyme immunoassay. If patient is immunocompromised or has traveled to or is from a developing country, a full ova and parasite exam with microscopic (OPMIC) is recommended. All samples will be held one month in case full ova and parasite testing is requested. Contact the Microbiology Department at [phone]. TEST LIMITATIONS: As with all diagnostic procedures, the results obtained should be used in conjunction with other clinical information available the physician, including confirmation by another method. Negative results can occur in samples containing antigen below lower limits of detection of the assay. One negative specimen does not rule out the possibility of a parasitic infection. To improve detection it is recommended that three specimens be collected on separate days over a period of not more than seven days. The use of colonic washes, aspirates or other diluted sample types has not been established and could affect the performance of the assay. Stool samples contaminated with an oily or particulate base (eg. Barium, mineral oil etc.) could interfere with the test and are not recommended. END OF REPORT * ML=Testing performed at Main Lab DEPARTMENT OF PATHOLOGY, [facility] [place], [place] [address] Cameron Rizo M.D. Director [facility] # [id number] RUN DATE: 03/16/14 [facility] LAB LIVE PAGE 1 RUN TIME: 846 [facility] [address] [place], [place] [address] Specimen Inquiry Name: SHIN GAMEZ : [address]: Lottie Velásquez NP Acct: [id number] Unit: [id number] AGE: 68 Location: [facility] Re03/14/14 SEX: M Status: REG REF SPEC: [id number] EFREN: 03/14/14-1430 [facility] DR: Lottie Velásquez NP REQ: [id number] RECD: 03/14/146285 STATUS: COMP _ SOURCE: STOOL SPDESC: ORDERED: Hemoccult, Stool Culture, Fecal Lactoferr, C. diff Amp DNA, O P: An/Cr COMMENTS: RECEIVED PLAIN CONTAINER ONLY AND PLACED IN RAINBOW WITHIN 2 HOUR WINDOW OF COLLECTION. QUERIES: Provider Requisition # [id number] Procedure Result Verified Site Stool Culture Final 03/16/14- 0847 ML Result No enteric pathogens isolated Testing for Salmonella, Shigella, Aeromonas, Plesiomonas, Yersinia and Campylobacter are included in a Stool Culture. Vibrio spp not routinely tested for in a stool culture. If testing is desired, please request specifically when placing test order. Sensitivities not routinely performed on stool isolates, as antibiotics may prolong the carriage rate of bacteria. Please contact the microbiology lab if sensitivities are required. Stool Specimen Description Final 03/14/14- 1538 ML Stool Color Brown Stool Form Nonformed Stool Consistency Liquid Shiga Toxin 1 2 Final 03/15/14- 1158 ML Organism 1 Negative Shiga Toxin 1 2 CONTINUED ON NEXT PAGE * ML=Testing performed at Main Lab DEPARTMENT OF PATHOLOGY, [facility] [place], [place] [address] Cameron Rizo M.D. Director [facility] # [id number] RUN DATE: 03/16/14 [facility] LAB LIVE PAGE 2 RUN TIME: 08 [facility] [address] [place], [place] [address] Specimen Inquiry Patient: SHIN GAMEZ [id number] (Continued) Specimen: [id number] Collected: 03/14/14 Received: 03/14/14 (Continued) Procedure Result Verified Site Shiga Toxin 1 2 Final (continued) 03/15/14- 115 Immunochromatographic Assay C. difficile Amplified DNA Final 03/15/14- 1505 ML Organism 1 Neg: No C. difficile detected Assay tests for toxigenic C. difficile with Pathogen Locus (PALOC) TEST LIMITATIONS: Assay does not distinguish between viable and nonviable organisms. Test results are to be used in conjunction with information available from the patient clinical evaluation and other diagnostic procedures. Two distinct groups have been identified that can harbor C. difficile asymptomatically at very high rates. Colonization at rates up to 50% and higher have been reported in infants and rates up to 32% in cystic fibrosis patients. Fecal Lactoferrin (Stool WBC) Final 03/15/14- 1504 ML Fecal Lactoferrin Positive by Immunoassay TEST LIMITATIONS: Assay detects elevated levels of lactoferrin released from fecal leukocytes as a marker of intestinal inflammation. The test may not be appropriate in immunocompromised persons. Fecal samples from breast fed infants should not be used with this assay. Stool Occult Blood Final 03/14/14- 1547 ML Stool Occult Blood Positive O P: Giardia/Cryptospor Screen Final 03/15/14- 1203 ML CONTINUED ON NEXT PAGE * ML=Testing performed at Main Lab DEPARTMENT OF PATHOLOGY, [facility] [place] [address] Cameron Rizo M.D. Director [facility] # [id number] RUN DATE: 03/16/14 [facility] LAB LIVE PAGE 3 RUN TIME: 846 [facility] [address] [place], [place] [address] Specimen Inquiry Patient: SHIN GAMEZ [id number] (Continued) Specimen: [id number] Collected: 03/14/14-1429 Received: 03/14/14-1453 (Continued) Procedure Result Verified Site O P: Giardia/Cryptospor Screen Final (continued) 03/15/14- 1203 Organism 1 Neg Cryptosporidium/Giardia Giardia and cryptosporidium antigen testing performed by enzyme immunoassay. If patient is immunocompromised or has traveled to or is from a developing country, a full ova and parasite exam with microscopic (OPMIC) is recommended. All samples will be held one month in case full ova and parasite testing is requested. Contact the Microbiology Department at [phone]. TEST LIMITATIONS: As with all diagnostic procedures, the results obtained should be used in conjunction with other clinical information available the physician, including confirmation by another method. Negative results can occur in samples containing antigen below lower limits of detection of the assay. One negative specimen does not rule out the possibility of a parasitic infection. To improve detection it is recommended that three specimens be collected on separate days over a period of not more than seven days. The use of colonic washes, aspirates or other diluted sample types has not been established and could affect the performance of the assay. Stool samples contaminated with an oily or particulate base (eg. Barium, mineral oil etc.) could interfere with the test and are not recommended. END OF REPORT * ML=Testing performed at Main Lab DEPARTMENT OF PATHOLOGY, [address] [place] [address] Cameron Rizo M.D. Director [facility] # [id number] RUN DATE: 03/15/14 [facility] LAB LIVE PAGE 1 RUN TIME: [address] [place], [place] [address] Specimen Inquiry Name: SHIN GAMEZ : [address]: Lottie Velásquez NP Acct: [id number] Unit: [id number] AGE: 68 Location: [facility] Re03/14/14 SEX: M Status: REG REF SPEC: [id number] EFREN: 03/14/14-[address]: Lottie Velásquez HUMAN [employer] DEPARTMENT SUPERVISOR REQ: [id number] RECD: 03/14/14776 STATUS: RES _ SOURCE: STOOL SPDESC: ORDERED: Hemoccult, Stool Culture, Fecal Lactoferr, C. diff Amp DNA, O P: Girachel/Cr COMMENTS: RECEIVED PLAIN CONTAINER ONLY AND PLACED IN RAINBOW WITHIN 2 HOUR WINDOW OF COLLECTION. QUERIES: Provider Requisition # [id number] Procedure Result Verified Site Stool Culture PENDING Stool Specimen Description Final 03/14/14- 1538 ML Stool Color Brown Stool Form Nonformed Stool Consistency Liquid Shiga Toxin 1 2 Final 03/15/14- 1158 ML Organism 1 Negative Shiga Toxin 1 2 Immunochromatographic Assay C. difficile Amplified DNA Final 03/15/14- 1505 ML Organism 1 Neg: No C. difficile detected Assay tests for toxigenic C. difficile with Pathogen Locus (PALOC) TEST LIMITATIONS: Assay does not distinguish between viable and nonviable organisms. Test results are to be used in conjunction with information available from the patient clinical evaluation and other diagnostic procedures. Two distinct groups have been identified that can harbor C. difficile asymptomatically at very high rates. Colonization at rates CONTINUED ON NEXT PAGE * ML=Testing performed at Main Lab DEPARTMENT OF PATHOLOGY, [facility] [address] [place], [place] [address] aCmeron Rizo M.D. Director [facility] # [id number] RUN DATE: 03/15/14 [facility] LAB LIVE PAGE 2 RUN TIME: 1505 [facility] [address] [place], [place] [address] Specimen Inquiry Patient: SIHN GAMEZ [id number] (Continued) Specimen: [id number] Collected: 03/14/14 Received: 03/14/14 (Continued) Procedure Result Verified Site C. difficile Amplified DNA Final (continued) 03/15/14- 1505 up to 50% and higher have been reported in infants and rates up to 32% in cystic fibrosis patients. Fecal Lactoferrin (Stool WBC) Final 03/15/14- 1504 ML Fecal Lactoferrin Positive by Immunoassay TEST LIMITATIONS: Assay detects elevated levels of lactoferrin released from fecal leukocytes as a marker of intestinal inflammation. The test may not be appropriate in immunocompromised persons. Fecal samples from breast fed infants should not be used with this assay. Stool Occult Blood Final 03/14/14- 1547 ML Stool Occult Blood Positive O P: Giardia/Cryptospor Screen Final 03/15/14- 1203 ML Organism 1 Neg Cryptosporidium/Giardia Giardia and cryptosporidium antigen testing performed by enzyme immunoassay. If patient is immunocompromised or has traveled to or is from a developing country, a full ova and parasite exam with microscopic (OPMIC) is recommended. All samples will be held one month in case full ova and parasite testing is requested. Contact the Microbiology Department at [phone]. TEST LIMITATIONS: As with all diagnostic procedures, the results obtained should be used in conjunction with other clinical information available the physician, including confirmation by another method. Negative results can occur in samples containing antigen below lower limits of detection of the assay. One negative specimen does not rule out the possibility of a parasitic infection. To improve detection CONTINUED ON NEXT PAGE * ML=Testing performed at Main Lab DEPARTMENT OF PATHOLOGY, [facility] [place], [place] [address] Cameron Rizo M.D. Director [facility] # [id number] RUN DATE: 03/15/14 [facility] LAB LIVE PAGE 3 RUN TIME: 1505 [facility] [address] [place], [place] [address] Specimen Inquiry Patient: SHIN GAMEZ [id number] (Continued) Specimen: [id number] Collected: 03/14/14-1429 Received: 03/14/14-314 (Continued) Procedure Result Verified Site O P: Giardia/Cryptospor Screen Final (continued) 03/15/14- 3 it is recommended that three specimens be collected on separate days over a period of not more than seven days. The use of colonic washes, aspirates or other diluted sample types has not been established and could affect the performance of the assay. Stool samples contaminated with an oily or particulate base (eg. Barium, mineral oil etc.) could interfere with the test and are not recommended. END OF REPORT * ML=Testing performed at Main Lab DEPARTMENT OF PATHOLOGY, [facility] [place], [place] [address] Cameron Rizo M.D. Director [facility] # [id number] 98 Please note: Effective March 08, 2014, the reference value for this test has changed due to the validation and activation of a new reagent lot number. 99 RUN DATE: 03/01/14 [facility] LAB LIVE PAGE 1 RUN TIME: [address] [place] [address] Specimen Inquiry Name: SHIN GAMEZ : [address]: Jonathan Quick MD Acct: [id number] Unit: [id number] AGE: 68 Location: ENDO Re02/27/14 SEX: M Status: REG REF SPEC: [id number] EFREN: 02/27/14-[address]: Jonathan Quick MD REQ: [id number] RECD: 02/27/14 STATUS: RAYMUNDO CAI DR: Diana Barragan MD _ ORDERED: LEVEL IV FINAL DIAGNOSIS Stomach, antrum, biopsy: -- Antral-type gastric mucosa with mild superficial chronic gastritis. -- No Helicobacter organisms seen on H E examination. CLINICAL HISTORY EGD 07/03 POST-OPERATIVE DIAGNOSIS Esophagus - normal; stomach - numerous erosions, biopsied; duodenum - normal. Incomplete screening colonoscopy secondary to adhesions surgery GROSS DESCRIPTION The specimen is received in formalin labeled, Gastric Antrum Biopsies, and consists of a 0.6 x 0.2 x 0.2 cm fields-white irregular soft tissue fragment. No other tissue is identified within the container. The specimen is submitted entirely in one cassette. Signed (signature on file) Rachell Quiñones MD 1032 END OF REPORT * ML=Testing performed at Main Lab DEPARTMENT OF PATHOLOGY, [facility] [place], [place] [address] Cameron Rizo M.D. Director [facility] # [id number] RUN DATE: 02/28/14 [facility] LAB LIVE PAGE 1 RUN TIME: 07 [facility] [address] [place], [place] [address] Specimen Inquiry Name: SHIN GAMEZ : [address]: Jonathan Quick MD Acct: [id number] Unit: [id number] AGE: 68 Location: ENDO Re02/27/14 SEX: M Status: REG REF SPEC: [id number] EFREN: 02/27/14-1212 [facility] DR: Jonathan Quick MD REQ: [id number] RECD: 02/27/14-1959 STATUS: ROC CAI DR: Diana Barragan MD _ SOURCE: GAS ANTRUM SPDESC: ORDERED: Clotest Procedure Result Verified Site Clotest Final 02/28/14- 44 ML Clotest Negative END OF REPORT * ML=Testing performed at Main Lab DEPARTMENT OF PATHOLOGY, [address] [place] [address] Cameron Rizo M.D. Director [facility] # [id number] 101 Because ethnic data is not always readily available, this report includes an eGFR for both -Americans and non- Americans. The National Kidney Disease Education Program (NKDEP) does not endorse the use of the MDRD equation for patients that are not between the ages of 18 and 70, are , have extremes of body size, muscle mass, or nutritional status, or are non- or non-. According to the National Kidney Foundation, irrespective of diagnosis, the stage of the disease is based on the level of kidney function: Stage Description GFR(mL/min/1.73 m(2)) 1 Kidney damage with normal or decreased GFR 90 2 Kidney damage with mild decrease in GFR 60-89 3 Moderate decrease in GFR 30-59 4 Severe decrease in GFR 15-29 5 Kidney failure <15 (or dialysis) 102 RUN DATE: 12/09/13 [facility] LAB LIVE PAGE 1 RUN TIME: [address] [place] [address] Specimen Inquiry Name: SHIN GAMEZ : [address]: Lottie Velásquez NP Acct: [id number] Unit: [id number] AGE: 68 Location: [facility] Re12/07/13 SEX: M Status: REG REF SPEC: [id number] EFREN: 12/07/13 [facility] DR: Anthony Kingsley MD REQ: [id number] RECD: 12/07/13 STATUS: ROC CAI DR: Lottie Velásquez [employer]UM[employer] DEPARTMENT SUPERVISOR _ SOURCE: URINE SPDESC: ORDERED: Urine Culture Procedure Result Verified Site Urine Culture Final 12/09/13- 0925 ML No Growth Day 2 (<1,000 CFU/mL) END OF REPORT * ML=Testing performed at Main Lab DEPARTMENT OF PATHOLOGY, [facility] [place], [place] [address] Cameron Rizo M.D. Director CLIA # [id number] RUN DATE: 11/25/13 [facility] LAB LIVE PAGE 1 RUN TIME: 1021 [facility] [address] [place], [place] [address] Specimen Inquiry Name: SHIN GAMEZ : [address]: Lottie Velásquez NP Acct: [id number] Unit: [id number] AGE: 68 Location: [facility] Re11/23/13 SEX: M Status: REG REF SPEC: [id number] EFREN: 11/23/13-1204 [facility] DR: Lottie Velásquez NP REQ: [id number] RECD: 11/23/13 STATUS: COMP _ SOURCE: URINE SPDESC: ORDERED: Urine Culture QUERIES: [facility] Number [id number] Procedure Result Verified Site Urine Culture Final 11/25/13- 1021 ML Organism 1 PSEUDOMONAS AERUGINOSA [place] Count >100,000 (Many) CFU/ML Organism 2 ACINETOBACTER LWOFFI 1. PSEUDOMONAS AERUGINOSA [facility] RX --------- ------ Ampicillin >=32 R Cefazolin >=64 R Cefepime 2 S Ceftriaxone R Ciprofloxacin <=0.25 S Gentamicin <=1 S Levofloxacin 0.5 S Meropenem <=0.25 S Nitrofurantoin >=512 R Tetracycline R Pipercillin/Tazobactam 8 S Trimethoprim/Sulfamethoxazole 80 R Amoxicillin/Clavulanic Acid >=32 R 2. ACINETOBACTER LWOFFI [facility] RX --------- ------ Ampicillin >=32 R Cefazolin >=64 R Cefepime 4 S Ceftriaxone 16 I CONTINUED ON NEXT PAGE * ML=Testing performed at Main Lab DEPARTMENT OF PATHOLOGY, [address] [place] [address] Cameron Rizo M.D. Director [facility] # [id number] RUN DATE: 11/25/13 [facility] LAB LIVE PAGE 2 RUN TIME: 1021 [address] [place], [place] [address] Specimen Inquiry Patient: SHANNANSHIN [id number] (Continued) Specimen: [id number] Collected: 11/23/13 Received: 11/23/13 (Continued) Procedure Result Verified Site Urine Culture Final (continued) 11/25/13- 102 2. JANELL ESTRADA (continued) [facility] RX --------- ------ Ciprofloxacin <=0.25 S Gentamicin <=1 S Levofloxacin 0.25 S Meropenem 0.5 S Nitrofurantoin >=512 R Tetracycline 4 S Pipercillin/Tazobactam 32 I Trimethoprim/Sulfamethoxazole <=20 S Amoxicillin/Clavulanic Acid 8 S Aztreonam 32 R Contact the Microbiology Department for any additional antibiotic reporting. END OF REPORT * ML=Testing performed at Main Lab DEPARTMENT OF PATHOLOGY, [address] [place] [address] Cameron Rizo M.D. Director [facility] # [id number] 104 Therapeutic target for the treatment of diabetes Mellitus patients is <7% HBA1C, and in selective patients <6.0%.Please refer to [place] [employer] Diabetic care guidelines for further information. 105 Test Performed by: [address] [address] Rn Surgical Pcu: John Espino M.D. 106 Acute inflammation: >10.00 107 RUN DATE: 11/03/13 [facility] LAB LIVE PAGE 1 RUN TIME: [address] [place] [address] Specimen Inquiry Name: SHIN GAMEZ : [address]: Lottie Velásquez NP Acct: [id number] Unit: [id number] AGE: 68 Location: [facility] Re11/01/13 SEX: M Status: REG REF SPEC: [id number] EFREN: 11/01/13-[address]: Lottie Velásquez NP REQ: [id number] RECD: 11/01/13 STATUS: COMP _ SOURCE: URINE SPDESC: ORDERED: Urine Culture QUERIES: [facility] Number [id number] Procedure Result Verified Site Urine Culture Final 11/03/13- 0850 ML Organism 1 PROTEUS MIRABILIS/PENNERI [place] Count >100,000 (Many) CFU/ML Organism 2 KLEBSIELLA OXYTOCA [place] Count >100,000 (Many) CFU/ML 1. PROTEUS MIRABILIS/PENNERI [facility] RX --------- ------ Ampicillin <=2 S Cefazolin <=4 S Cefepime <=1 S Ceftriaxone <=1 S Ciprofloxacin <=0.25 S Gentamicin <=1 S Levofloxacin <=0.12 S Meropenem <=0.25 S Nitrofurantoin 256 R Tetracycline >=16 R Pipercillin/Tazobactam <=4 S Trimethoprim/Sulfamethoxazole <=20 S Amoxicillin/Clavulanic Acid <=2 S Aztreonam <=1 S CONTINUED ON NEXT PAGE * ML=Testing performed at Main Lab DEPARTMENT OF PATHOLOGY, [facility] [place], [place] [address] Cameron Rizo M.D. Director [facility] # [id number] RUN DATE: 11/03/13 [facility] LAB LIVE PAGE 2 RUN TIME: 0850 [facility] [address] [place], [place] [address] Specimen Inquiry Patient: SHIN GAMEZ [id number] (Continued) Specimen: [id number] Collected: 11/01/13-114 Received: 11/01/13-134 (Continued) Procedure Result Verified Site Urine Culture Final (continued) 11/03/13- 849 2. KLEBSIELLA OXYTOCA [facility] RX --------- ------ Ampicillin >=32 R Cefazolin 8 S Cefepime <=1 S Ceftriaxone <=1 S Ciprofloxacin <=0.25 S Gentamicin <=1 S Levofloxacin <=0.12 S Meropenem <=0.25 S Nitrofurantoin 32 S Tetracycline <=1 S Pipercillin/Tazobactam <=4 S Trimethoprim/Sulfamethoxazole <=20 S Amoxicillin/Clavulanic Acid 4 S Aztreonam <=1 S Contact the Microbiology Department for any additional antibiotic reporting. END OF REPORT * ML=Testing performed at Main Lab DEPARTMENT OF PATHOLOGY, [address] [place] [address] Cameron Rizo M.D. Director [facility] # [id number] 108 Normal Range 180 to 914 Indeterminate Range 145 to 180 Deficient Range <145 109 Because ethnic data is not always readily available, this report includes an eGFR for both -Americans and non- Americans. The National Kidney Disease Education Program (NKDEP) does not endorse the use of the MDRD equation for patients that are not between the ages of 18 and 70, are , have extremes of body size, muscle mass, or nutritional status, or are non- or non-. According to the National Kidney Foundation, irrespective of diagnosis, the stage of the disease is based on the level of kidney function: Stage Description GFR(mL/min/1.73 m(2)) 1 Kidney damage with normal or decreased GFR 90 2 Kidney damage with mild decrease in GFR 60-89 3 Moderate decrease in GFR 30-59 4 Severe decrease in GFR 15-29 5 Kidney failure <15 (or dialysis) 110 Serologic response to B. burgdorferi infection is not detected, but cannot rule out early infection during which low or undetectable antibody levels to B. burgdorferi may be present. If clinically indicated, a new serum specimen should be submitted in 7-14 days. Test Performed by: [place] [address] Rn Surgical Pcu: Jeremiah West III, M.D. 111 Acute inflammation: >10.00 112 Normal Range 180 to 914 Indeterminate Range 145 to 180 Deficient Range <145 113 Test Performed by: [place] [address] Rn Surgical Pcu: Jeremiah West III, M.D. 114 Small abnormality in gamma fraction. See Immunofixation. Test Performed by: [place] [address] Rn Surgical Pcu: Jeremiah West III, M.D. 115 Small monoclonal IgM lambda within the gamma fraction. Suggest repeat testing in 6-12 months if clinically indicated. Test Performed by: [place] [address] Rn Surgical Pcu: Jeremiah West III, M.D. 116 Because ethnic data is not always readily available, this report includes an eGFR for both -Americans and non- Americans. The National Kidney Disease Education Program (NKDEP) does not endorse the use of the MDRD equation for patients that are not between the ages of 18 and 70, are , have extremes of body size, muscle mass, or nutritional status, or are non- or non-. According to the National Kidney Foundation, irrespective of diagnosis, the stage of the disease is based on the level of kidney function: Stage Description GFR(mL/min/1.73 m(2)) 1 Kidney damage with normal or decreased GFR 90 2 Kidney damage with mild decrease in GFR 60-89 3 Moderate decrease in GFR 30-59 4 Severe decrease in GFR 15-29 5 Kidney failure <15 (or dialysis) 117 Therapeutic target for the treatment of diabetes Mellitus patients is <7% HBA1C, and in selective patients <6.0%.Please refer to [place] [employer] Diabetic care guidelines for further information. 118 Warning: A positive result is not useful for establishing a diagnosis of syphilis. In most situations, such a result may reflect a prior treated infection; a negative result can exclude a diagnosis of syphilis except for incubating or early primary disease. 119 NO 120 Test Performed by: [place] [address] Rn Surgical Pcu: Jeremiah West III, M.D. 121 [address] [facility] [address] 122 Test Performed by: [place] [address] Rn Surgical Pcu: Jeremiah West III, M.D. 123 Desirable <150 Borderline high 150-199 High 200-499 Very High >500 124 Desirable <200 Borderline high 200-239 High >239 125 Low <40 Desirable: 40-60 High: >60 126 Desirable <100 Near Optimal 100-129 Borderline high 130-159 High 160-189 Very High >189 127 Because ethnic data is not always readily available, this report includes an eGFR for both -Americans and non- Americans. The National Kidney Disease Education Program (NKDEP) does not endorse the use of the MDRD equation for patients that are not between the ages of 18 and 70, are , have extremes of body size, muscle mass, or nutritional status, or are non- or non-. According to the National Kidney Foundation, irrespective of diagnosis, the stage of the disease is based on the level of kidney function: Stage Description GFR(mL/min/1.73 m(2)) 1 Kidney damage with normal or decreased GFR 90 2 Kidney damage with mild decrease in GFR 60-89 3 Moderate decrease in GFR 30-59 4 Severe decrease in GFR 15-29 5 Kidney failure <15 (or dialysis) 128 Please note the change in the INR reference range effective 12. 129 Please note the change in the INR reference range effective 12. 130 Please note the change in the INR reference range effective 12. 131 Please note the change in the INR reference range effective 12. Procedures Date Code Description Status 03/24/2018 92658 Anticoagulant MGMT For Patient Taking Warfarin, Inc Review Completed & Intr 03/17/2018 05061 Anticoagulant MGMT For Patient Taking Warfarin, Inc Review Completed & Intr 03/11/2018 62604 Anticoagulant MGMT For Patient Taking Warfarin, Inc Review Completed & Intr 03/03/2018 02719 Anticoagulant MGMT For Patient Taking Warfarin, Inc Review Completed & Intr 01/27/2018 51433 Anticoagulant MGMT For Patient Taking Warfarin, Inc Review Completed & Intr 12/30/2017 14849 Anticoagulant MGMT For Patient Taking Warfarin, Inc Review Completed & Intr 12/02/2017 70057 Anticoagulant MGMT For Patient Taking Warfarin, Inc Review Completed & Intr 11/04/2017 78978 Anticoagulant MGMT For Patient Taking Warfarin, Inc Review Completed & Intr 10/29/2017 00210 Anticoagulant MGMT For Patient Taking Warfarin, Inc Review Completed & Intr 10/14/2017 90395 Anticoagulant MGMT For Patient Taking Warfarin, Inc Review Completed & Intr 10/07/2017 12050 Anticoagulant MGMT For Patient Taking Warfarin, Inc Review Completed & Intr 09/30/2017 72570 Anticoagulant MGMT For Patient Taking Warfarin, Inc Review Completed & Intr 08/28/2017 52590 Anticoagulant MGMT For Patient Taking Warfarin, Inc Review Completed & Intr 09/14/2015 55285 EKG, at Least 12 Leads w/Interpretation and Report Completed 08/16/2015 13728 Spirometry Completed 06/20/2013 36917 Audiometric Screening Test, Pure Tone, Air Only Completed Encounters Type Date Location Provider Dx Diagnosis Office Visit 03/17/2018 Main Office Enrique Cabrera44.1 Chronic obstructive 10:30a pulmonary disease w (acute) exacerbation M10.9 Gout, unspecified I48.2 Chronic atrial fibrillation Office Visit 01/12/2018 3:30p Main Office Enrique Lazo06.9 Acute upper [employer]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 SUPERVISOR respiratory infection, unspecified Office Visit 11/09/2017 10:30a Main Office Joon Trevino.1 Chronic obstructive MD Diamond pulmonary disease w (acute) exacerbation Z23 Encounter for immunization Office Visit 10/26/2017 3:30p Main Office Geena Balderas, J44.0 Chronic obstructive [employer] DEPARTMENT SUPERVISOR pulmon disease w acute lower resp infct K59.00 Constipation, unspecified Office Visit 10/16/2017 3:30p Main Office Geena Balderas J06.9 Acute upper [employer] DEPARTMENT SUPERVISOR respiratory infection, unspecified K59.00 Constipation, unspecified Office Visit 08/11/2017 11:45a Main Office Joon Fields, H00.014 Hordeolum externum left upper eyelid Office Visit 07/03/2017 10:00a Main Office Joon Fields, B36.0 Pityriasis MD jensen J06.9 Acute upper respiratory infection, unspecified Office Visit 05/20/2017 11:00a Main Office Joon Fields J44.0 Chronic MD obstructive pulmon disease w acute lower resp infct I48.91 Unspecified atrial fibrillation Office Visit 05/06/2017 10:30a Main Office Joon Fields J44.0 Chronic MD obstructive pulmon disease w acute lower resp infct I48.91 Unspecified atrial fibrillation Office Visit 01/14/2017 5:00p Main Office Joon Fields, R21 Rash and other MD nonspecific skin eruption Office Visit 11/24/2016 4:45p Main Office Junior Zhang J06.9 Acute upper [employer] respiratory infection, unspecified Office Visit 07/28/2016 4:15p Main Office Junior Zhang J44.9 Chronic [employer] obstructive pulmonary disease, unspecified L21.9 Seborrheic dermatitis, unspecified Office Visit 05/21/2016 10:00a Main Office Joon Fields R73.9 Hyperglycemia, MD unspecified Office Visit 04/10/2016 11:15a Main Office Junior Zhang J06.9 Acute upper [employer] respiratory infection, unspecified J45.901 Unspecified asthma with (acute) exacerbation I48.91 Unspecified atrial fibrillation Office Visit 01/30/2016 11:30a Main Office Joon Fields J32.9 Chronic sinusitis, unspecified Z23 Encounter for immunization Office Visit 12/21/2015 11:30a Main Office Nate Samayoa III, G40.89 Other seizures [employer] Office Visit 12/04/2015 10:15a Main Office Nate Samayoa III, G40.89 Other seizures [employer] Office Visit 09/14/2015 4:00p Main Office Junior Zhang, R49.0 Dysphonia [employer] R53.83 Other fatigue Office Visit 08/17/2015 2:45p Main Office Denniswgeorgiana Velez Z01.818 Encounter for other Storm, [employer] preprocedural examination H26.9 Unspecified cataract Office Visit 08/16/2015 9:45a Main Office Junior Velez J44.9 Chronic obstructive Storm, [employer] pulmonary disease, unspecified G47.62 Sleep related leg cramps Office Visit 07/26/2015 11:45a Main Office Junior Velez J44.9 Chronic obstructive Storm, [employer] pulmonary disease, unspecified I48.91 Unspecified atrial fibrillation Office Visit 06/21/2015 10:30a Main Office Diana Barragan, E78.2 Mixed hyperlipidemia Simi.Fernando, R.D. J01.90 Acute sinusitis, unspecified I48.91 Unspecified atrial fibrillation Z79.01 intermediate (current) use of anticoagulants Office Visit 05/25/2015 10:30a Main Office Nate Samayoa M25.561 Pain in right III, [employer] knee Office Visit 05/10/2015 11:30a Main Office Diana Barragan, R55 Syncope and Simi.Fernando, R.D. collapse M62.81 Muscle weakness (generalized) S20.161A Insect bite (nonvenomous) of breast, right breast, init J20.9 Acute bronchitis, unspecified Office Visit 02/03/2015 10:30a Main Office Junior Velez S50.862A Insect bite Storm, [employer] (nonvenomous) of left forearm, initial encounter Office Visit 01/01/2015 11:15a Main Office Diana I48.91 Unspecified atrial [place], fibrillation Ellis, R.D. R21 Rash and other nonspecific skin eruption Office Visit 12/28/2014 10:45a Main Office Joon L28.2 Other pruryeison Fields MD Office Visit 10/13/2014 2:00p Main Office Nate Samayoa 599.0 UTI Urinary Tract III, [employer] Infection Site Not Spec Office Visit 03/14/2014 12:00p Main Office Lottie Velásquez, 787.91 Diarrhea [employer] Office Visit 02/06/2014 10:30a Main Office Diana Barragan, V58.61 Anticoagulants Long Simi.Fernando, R.D. 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 Encounter Office Visit 11/28/2013 9:30a Main Office Lottie Velásquez, 780.79 Malaise And [employer] Fatigue Other 285.9 Anemia Unspec 599.0 UTI Urinary Tract Infection Site Not Spec Office Visit 11/23/2013 10:30a Main Office Lottie Velásquez, 728.87 Muscle Weakness [employer] Generalized 719.69 Joint Symptoms Other Multiple Sites 780.79 Malaise And Fatigue Other 790.6 Abnormal Blood Chemistry Other 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 782.1 Rash & Other Nonspec Skin Eruption 389.9 Hearing Loss Unspec Office Visit 06/20/2013 1:30p Main Office Lottie Velásquez, 389.9 Hearing Loss [employer] Unspec Office Visit 05/23/2013 2:30p Main Office Diana Barragan, 724.02 Spinal Stenosis M.D., R.D. Lumbar Region 729.5 Pain In Limb 782.1 Rash & Other Nonspec Skin Eruption Office Visit 05/05/2013 11:00a Main Office Shawnti RRk 693.0 Dermatitis Due To Storm, [employer] Drugs & Medicines Office Visit 04/21/2013 2:15p Main Office Shawnti R. 693.0 Dermatitis Due To Storm, [employer] Drugs & Medicines Office Visit 04/11/2013 11:00a Main Office Diana Barragan, 427.31 Atrial Fibrillation Ellis, R.D. 724.02 Spinal Stenosis Lumbar Region 728.87 Muscle Weakness Generalized 491.8 Bronchitis Other Chronic 782.1 Rash & Other Nonspec Skin Eruption Office Visit 01/26/2013 10:00a Main Office Lottie Velásquez 709.9 Skin & Subcutaneous [employer] Tissue Disorders Unspec Office Visit 01/19/2013 3:00p Main Office Lottie Velásquez 709.9 Skin & Subcutaneous [employer] Tissue Disorders Unspec Office Visit 01/17/2013 10:00a Main Office Lottie Velásquez 709.9 Skin & Subcutaneous [employer] Tissue Disorders Unspec Office Visit 01/10/2013 11:00a Main Office Diana Barragan, 427.31 Atrial Fibrillation Ellis, R.D. V12.59 History Personal Circulatory Diseases Other 724.02 Spinal Stenosis Lumbar Region V10.51 History Personal Malignant Neoplasm Bladder Office Visit 10/06/2012 11:15a Main Office Diana Barragan, 427.31 Atrial Fibrillation Ellis, R.DRk 274.9 Gout Unspec 272.2 Hyperlipidemia Mixed V12.59 History Personal Circulatory Diseases Other V10.51 History Personal Malignant Neoplasm Bladder Plan of Treatment 03/29/2018 - Joon Fields MDJ18.9 Pneumonia, unspecified organismNew Medication:Augmentin 875-125 mg - 1 take by mouth tablet every 12 hours for 10 days for infectionPrednisone 20 mg - take 3 tabs by mouth x 3 days, then 2 tabs by mouth x 3 days, then 1 tab by mouthx 3 days then 1/2 tab by mouth x 4 daysGuaifenesin-Codeine 100-10 mg/5ML - 5-10 milliliters every 4-6 hours as needed coughNew Xrays:Chest, 2 Views(PA & Lateral), Ordered: Comments:His symptoms remain. Will treat with a longer taper of steroids and a different abx. At this point Iwould like to get an X-ray as well.Follow up:cxr
== END 2018-04-20 18:00 | disposition home or self-care (01) ==
LOC: ED 17:24
DX: Z43.6 Encounter for attention to other artificial openings of urinary tract (principal); I10 Essential (primary) hypertension; I48.91 Unspecified atrial fibrillation; Z87.891 Personal history of nicotine dependence; Z86.73 Personal history of transient ischemic attack (TIA), and cerebral infarction without residual deficits; Z85.46 Personal history of malignant neoplasm of prostate
CPT/HCPCS: 99281

== ENCOUNTER 2018-07-04 15:02 | Emergency (ER) | payer MEDICARE, OTHER ==
--- OUTSIDE RECORDS SUMMARY | 2018-07-04 15:18 | XMS REPORT | Continuity of Care Document ---
:1945 External Reference #:[id number] Author Name Joi Rainey Care Team Providers Name Role Phone Diana Barragan MD Primary Care Physician Unavailable Payers Date Identification Numbers Payment Provider Subscriber Policy Number: [id number] Medicare Shin Gamez PayID: [id number] [address] [place] [address] Policy Number: [id number] [facility] Shin Gamez Group Number: [id number] Group Name: [place] [address] PayID: [id number] Advance Directives Description No Information Available Problems Active Problems Provider Date Atrial fibrillation Alfred Romano DO FACC Onset: 12/04/2015 Cerebrovascular accident Alfred Romano DO FAC Onset: 12/04/2015 Family History Date Family Member(s) Observation Comments Father due to Gastric Cancer () - age 60 Mother due to Throat cancer () - age 40 Social History Type Date Description Comments Sex Unknown Marital Status Lives With Occupation Retired Tobacco Use Start: Unknown End: Former Cigarette Smoker Unknown Smoking Status Reviewed: 06/10/18 Former Cigarette Smoker ETOH Use Occasionally consumes alcohol ETOH Use consumes 2-3 beers per day Tobacco Use Start: Unknown End: Patient is a former smoker Unknown Recreational Drug Use Never Used Drugs Exercise Type/Frequency Stays active around house Allergies, Adverse Reactions, Alerts Active Allergies Reaction Severity Comments Date Azithromycin 05/08/2015 Iodinated Diagnostic Agents 05/08/2015 Medications Active Medications SIG Qnty Indications Ordering Provider Date Gabapentin take 1 capsule by shayan Rodriguez, 06/10/2018 100mg mouth at night M.D. 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 DIMITRI Barragan) Diltiazem HCL ER 1 by mouth every 90caps Alfred Romano, 120mg day in the DO FACC Caps ER 24HR morning Hydrocodone-Acetamino 1 tab by mouth Unknown phen every 4 hours as 10-325mg Tablets needed Advair Diskus inhale 1 dose by Unknown mouth twice a 500-50mcg/Dose day( not using) Aerosol Mometasone Furoate use 2 sprays in Unknown each nostril once 50mcg/Act Suspension a day as needed Spiriva Respimat Joon Fields MD Pippa 2.5mcg/Act Aerosol Multivitamin Adults once a day Unknown 50+ Adlt 50+ Tablets History Medications Cephalexin 1 tab three times 9tabs Raad King 04/07/2016 - 500mg Tablets a day for 3 days Ellis Prasad 04/09/2016 Divalproex Sodium ER 1 by mouth every 60tabs Jerson Gilbert 03/21/2016 - 500mg night at bedtime Ellis Kidd 05/12/2016 Tablets ER 24HR for 1 week then 2 every night at bedtime PT Is Not Taking 04/15/16 Kepp 1 by mouth twice a 60tabs Sujatha Rose 12/13/2015 - 750mg Tablets day lElis Baker 12/18/2015 Metoprolol Succinate ER 1 by mouth every Anshul uGpta, 05/06/2015 - day 10/14/2016 100mg Tablets ER 24HR Simvastatin 1 by mouth every Lottie Romero, 02/17/2015 - 20mg Tablets day 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 05/12/2015 Lyrica Take 2 cap in the Diana Barragan 01/29/2015 - 50mg Capsules morning and 1 antonino Hoff MD 05/09/2015 at night Digoxin 1 by mouth Thursday, ta Lottie Romero, 01/08/2015 - 125mcg Tablets Thursday and [employer]ING MACHINE TENDER 09/19/2016Thursday Cetirizine HCL 1 tablet by mouth Unknown - 10mg daily in the 05/08/2015 Chewtabs morning Vitamin B-12 1 by mouth every Unknown - 100mcg Tablets day 05/08/2015 Gabapentin 1 by mouth three Unknown - 300mg Capsules times a day 05/06/2015 Triamcinolone Acetonide twice a day as Unknown - needed topically 12/18/2015 0.025% Ointment Levofloxacin one by mouth daily Unknown - 500mg Tablets 04/01/2016 Levetiracetam 1 by mouth twice a Unknown - 750mg Tablets day 03/21/2016 Vitamin D daily Unknown - 03/18/2016 B12 daily Unknown - 03/18/2016 Ventolin HFA as needed (does Unknown - not use) 06/10/2018 Medications Administered in Office Medication SIG Qnty Indications Ordering Provider Date Inj, Regadenoson, 0.1 MG Alfred Romano, DO [facility] 05/23/2015 Injection Technetium TC 99M Alfred Romano, DO [facility] 05/23/2015 Tetrofosmin, Per Unit Dose Up To 40 Millicuries Injection Immunizations Description No Information Available Vital Signs Date Vital Result Comment 06/10/2018 11:35am Height 64 inches 5'4" Weight 147.00 lb Heart Rate 85 /min BP Systolic Sitting 116 mmHg BP Diastolic Sitting 70 mmHg Pain Level 4 O2 % BldC Oximetry 98 % BMI (Body Mass Index) 25.2 kg/m2 07/22/2017 1:53pm Height 64 inches 5'4" Weight 151.31 lb with shoes on Heart Rate 88 /min BP Systolic Sitting 128 mmHg Rue reg cuff BP Diastolic Sitting 72 mmHg Rue reg cuff BP Systolic Standing 122 mmHg Rue reg cuff BP Diastolic Standing 68 mmHg Rue reg cuff Respiratory Rate 20 /min BMI (Body Mass Index) 26.0 kg/m2 Ejection Fraction 60-65% 05/24/2015 echo 02/20/2017 1:41pm Height 64 inches 5'4" Weight 154.00 lb with shoes Heart Rate 100 /min irreg BP Systolic Sitting 124 mmHg Lue reg cuff BP Diastolic Sitting 70 mmHg Lue reg cuff BP Systolic Standing 122 mmHg Lue reg cuff BP Diastolic Standing 70 mmHg Lue reg cuff Respiratory Rate 17 /min BMI (Body Mass Index) 26.4 kg/m2 Ejection Fraction 60-65% date 05/24/15 ECHO 10/23/2016 10:12am Height 64 inches 5'4" Weight 157.00 lb with shoers Heart Rate 84 /min BP Systolic Sitting 128 mmHg Lue reg cuff BP Diastolic Sitting 72 mmHg Lue reg cuff BP Systolic Standing 120 mmHg "" BP Diastolic Standing 76 mmHg "" Respiratory Rate 4 /min BMI (Body Mass Index) 26.9 kg/m2 05/12/2016 11:28am Height 64 inches 5'4" Weight 151.00 lb Heart Rate 78 /min BP Systolic Sitting 122 mmHg BP Diastolic Sitting 80 mmHg BMI (Body Mass Index) 25.9 kg/m2 05/06/2016 11:18am Height 64 inches 5'4" Weight 151.00 lb with shoes Heart Rate 68 /min irregular BP Systolic Sitting 120 mmHg Lue reg cuff BP Diastolic Sitting 68 mmHg Lue reg cuff BP Systolic Standing 124 mmHg Lue reg cuff BP Diastolic Standing 66 mmHg Lue reg cuff Respiratory Rate 16 /min BMI (Body Mass Index) 25.9 kg/m2 Ejection Fraction 60-65% echo 05/24/15 04/15/2016 1:31pm Height 64 inches 5'4" Weight 153.00 lb w/ shoes Heart Rate 80 /min reg BP Systolic Sitting 120 mmHg Lue, reg cuff BP Diastolic Sitting 80 mmHg Lue, reg cuff BP Systolic Standing 124 mmHg Lue BP Diastolic Standing 80 mmHg Lue Respiratory Rate 16 /min BMI (Body Mass Index) 26.3 kg/m2 Ejection Fraction 60-65% as of 05/24/15 echo 04/02/2016 11:28am Height 64 inches 5'4" Weight 152.00 lb with shoes Heart Rate 68 /min BP Systolic Sitting 124 mmHg Lue reg cuff BP Diastolic Sitting 84 mmHg Lue reg cuff BP Systolic Standing 114 mmHg Lue reg cuff BP Diastolic Standing 78 mmHg Lue reg cuff Respiratory Rate 16 /min BMI (Body Mass Index) 26.1 kg/m2 04/01/2016 1:11pm Height 64 inches 5'4" Weight 155.00 lb Heart Rate 71 /min BP Systolic Sitting 122 mmHg BP Diastolic Sitting 68 mmHg Respiratory Rate 16 /min BMI (Body Mass Index) 26.6 kg/m2 03/21/2016 10:20am Height 64 inches 5'4" Weight 155.00 lb Heart Rate 71 /min BP Systolic Sitting 124 mmHg BP Diastolic Sitting 62 mmHg Respiratory Rate 16 /min BMI (Body Mass Index) 26.6 kg/m2 12/19/2015 11:48am Height 62.5 inches 5'2.50" Weight 152.00 lb Heart Rate 78 /min BP Systolic Sitting 124 mmHg BP Diastolic Sitting 70 mmHg BMI (Body Mass Index) 27.4 kg/m2 12/04/2015 8:45am Height 62.5 inches 5'2.50" Weight 152.00 lb with shoes Heart Rate 84 /min BP Systolic Sitting 126 mmHg Ra, reg cuff BP Diastolic Sitting 88 mmHg Ra, reg cuff BP Systolic Standing 122 mmHg Ra BP Diastolic Standing 84 mmHg Ra Respiratory Rate 16 /min BMI (Body Mass Index) 27.4 kg/m2 06/11/2015 1:22pm Height 62.5 inches 5'2.50" Weight 158.00 lb w/ shoes Heart Rate 82 /min irreg BP Systolic Sitting 126 mmHg Rue, reg cuff BP Diastolic Sitting 74 mmHg Rue, reg cuff BP Systolic Standing 130 mmHg Rue BP Diastolic Standing 76 mmHg Rue Respiratory Rate 16 /min BMI (Body Mass Index) 28.4 kg/m2 Ejection Fraction 60-65% 05/24/15 echo 05/09/2015 1:38pm Height 62.5 inches 5'2.50" Weight 161.00 lb without shoes Heart Rate 62 /min irreg BP Systolic 146 mmHg Ra reg cuff BP Diastolic 70 mmHg Ra reg cuff BP Systolic Sitting 136 mmHg La reg cuff BP Diastolic Sitting 70 mmHg La reg cuff BP Systolic Standing 132 mmHg La reg cuff BP Diastolic Standing 72 mmHg La reg cuff Respiratory Rate 17 /min BMI (Body Mass Index) 29.0 kg/m2 Results Test Date Facility Test Result H/L Range Note Laboratory test 06/10/2018 [facility] Uric Acid 4.6 mg/dL N 4.4-7.[address] [place] [address] [phone] TSH (Thyroid Stim Horm) 1.28 mcIU/mL N 0.34-5.60 Vitamin B12 And 06/10/2018 [facility] Vitamin B12 201 pg/mL N 180-914 1 Folate Serum [address] [place] [address] [phone] Folic Acid (Folate) > 20.00 ng/mL >3.99 1 Normal Range 180 to 914 Indeterminate Range 145 to 180 Deficient Range <145 Procedures Date Code Description Status 04/13/2018 32275 Interrogation Device Eval,Implantable Loop Recorder System Completed 04/13/2018 51059 Interrogation Device Eval,Implantable Loop Recorder System Completed 03/16/2018 02197 Interrogation Device Eval,Implantable Loop Recorder System Completed 03/16/2018 40663 Interrogation Device Eval,Implantable Loop Recorder System Completed 10/23/2017 84170 Interrogation Device Eval,Implantable Loop Recorder System Completed 07/22/2017 81469 Interrogation Device Eval,Implantable Loop Recorder System Completed 07/22/2017 04892 Interrogation Device Eval,Implantable Loop Recorder System Completed 04/17/2017 81117 Interrogation Device Eval,Implantable Loop Recorder System Completed 04/17/2017 60117 Interrogation Device Eval,Implantable Loop Recorder System Completed 03/06/2017 63572 Interrogation Device Eval,Implantable Loop Recorder System Completed 03/06/2017 21817 Interrogation Device Eval,Implantable Loop Recorder System Completed 02/20/2017 73936 EKG Tracing & Interpretation Completed 11/18/2016 02595 Interrogation Device Eval,Implantable Loop Recorder System Completed 10/23/2016 36673 EKG Tracing & Interpretation Completed 09/18/2016 89166 Interrogation Device Eval,Implantable Loop Recorder System Completed 08/04/2016 49772 Loop Recorder Device Eval W/Iterative Adj Implant Loop Completed Recorder 07/22/2016 81808 EKG, Interpretation Only Completed 06/09/2016 77428 Implantable Cardio System Loop Recorder Sys Remota Data Completed Acquistio 06/09/2016 29819 Interrogation Dev Loop Recorder Incl Physician Completed Analysis,Rev,Repor 06/03/2016 28990 Interrogation Device Eval,Implantable Loop Recorder System Completed 05/09/2016 81832 Implantable Cardio System Loop Recorder Sys Remota Data Completed Acquistio 05/09/2016 26900 Interrogation Dev Loop Recorder Incl Physician Completed Analysis,Rev,Repor 05/06/2016 60406 EKG Tracing & Interpretation Completed 04/28/2016 37569 Interrogation Device Eval,Implantable Loop Recorder System Completed 04/07/2016 62677 Implant Cardiac Loop Recorder Completed 12/06/2015 87209 Holter Monitor Review (24 hr)dr review & interp only Completed 12/04/2015 56232 ECG Monitor/Recording W/Visual Superimposition Scanning Completed 12/04/2015 88674 EKG Tracing & Interpretation Completed 11/28/2015 15781 EEG Recording Awake & Asleep Completed 05/24/2015 43227 ECHO Transthoracic, Real-Time 2D With Doppler And Color Completed Flow 05/23/2015 66367 Stress Test Completed 05/23/2015 33501 Myocardial Perfusion Imaging Tomographic (Spect) Multiple Completed Studies 05/09/2015 17213 EKG Tracing & Interpretation Completed Encounters Type Date Location Provider Dx Diagnosis Office Visit 07/22/2017 [facility] Alfred Romano, I48.1 Persistent atrial 2:20p Of Physical Education Specialist DO FACC fibrillation I63.9 Cerebral infarction, unspecified R55 Syncope and collapse 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 I48.91 Unspecified atrial 10:20a Of Physical Education Specialist Romano, DO fibrillation FACC R55 Syncope and collapse I63.9 Cerebral infarction, unspecified Office Visit 07/24/2016 12:25p [facility] Uzma J44.1 Chronic Assoc,isabelle Mathew D.O. obstructive Hospitalists pulmonary disease w (acute) exacerbation I48.91 Unspecified atrial fibrillation M1A.9xx0 Chronic gout, unspecified, without tophus (tophi) K59.00 Constipation, unspecified Office Visit 07/23/2016 1:43p Pulmonology And Demetra J44.1 Chronic Sleep Services Of MD Stacy obstructive [facility] pulmonary disease w (acute) exacerbation [facility]oc,isabelle Mathew D.O. obstructive Hospitalists pulmonary disease w (acute) exacerbation I48.91 Unspecified atrial fibrillation K59.00 Constipation, unspecified M1A.9xx0 Chronic gout, unspecified, without tophus (tophi) Office Visit 07/22/2016 1:43p Pulmonology And Demetra J44.1 Chronic Sleep Services Of MD Stacy obstructive [facility] pulmonary disease w (acute) exacerbation Office Visit 07/22[facility]2016 [facility] Assoc,isabelle Mathew D.O. obstructive Hospitalists pulmonary disease w (acute) exacerbation I48.91 Unspecified atrial fibrillation M1A.9xx0 Chronic gout, unspecified, without tophus (tophi) Office Visit 07/21/2016 [facility] Cisco J44.1 Chronic 12:23p Assoc,pc Jose, N.P. obstructive Hospitalists pulmonary disease w (acute) exacerbation I48.91 Unspecified atrial fibrillation M1A.9xx0 Chronic gout, unspecified, without tophus (tophi) Office Visit 05/06/2016 11:20a [facility] Alfred SRk I48.91 Unspecified atrial Of [facility] Romano, DO fibrillation FACC R55 Syncope and collapse I63.8 Other cerebral infarction Office Visit 04/02/2016 11:45a [facility] Alfred Gilbert R55 Syncope and Of [facility] Juan Antonio, DO FACC collapse I48.91 Unspecified atrial fibrillation Office Visit 04/01/2016 1:15p [facility] Jerson Dai Syncope and Services Of Arsenio Kidd M.D. collapse G40.209 Local-rel symptc epi w cmplx prt seiz,not ntrct,w/o stat epi I48.91 Unspecified atrial fibrillation Office Visit 03/21/2016 [facility] Jerson Gilbert G40.209 Local-rel 10:00a Clinic Ellis Kidd symptc epi w cmplx prt seiz,not ntrct,w/o stat epi R63.1 Polydipsia Z79.899 Other penitentiary (current) drug therapy Office Visit 12/19/2015 11:45a [facility] Jerson Gilbert R55 Syncope and Ellis Kidd collapse R94.01 Abnormal electroencephalogram [EEG] I48.91 Unspecified atrial fibrillation Z86.73 Prsnl hx of TIA (TIA), and cereb infrc w/o resid deficits Office Visit 12/04/2015 8:40a [facility] Alfred Gilbert R55 Syncope and Of Physical Education Specialist Romano, DO FACC collapse I48.91 Unspecified atrial fibrillation I63.8 Other cerebral infarction Office Visit 11/29/2015 2:46p [facility] Mariposa Yee, R56.9 Unspecified Assoc,pc N.P. convulsions Hospitalists R55 Syncope and collapse I63.8 Other cerebral infarction I48.91 Unspecified atrial fibrillation Office Visit 11/28/2015 2:45p [facility] Yee R55 Syncope and Assoc,pc N.P. collapse Hospitalists I48.91 Unspecified atrial fibrillation I63.8 Other cerebral infarction Office Visit 11/27/2015 2:44p [facility] Mariposa Yee, R55 Syncope and Assoc,pc N.P. collapse Hospitalists I48.91 Unspecified atrial fibrillation I63.8 Other cerebral infarction Office Visit 06/11/2015 1:40p [facility] Alfred Gilbert I48.1 Persistent atrial Of Physical Education Specialist Romano, DO fibrillation FACC I63.9 Cerebral infarction, unspecified I10 Essential (primary) hypertension Office Visit 05/09/2015 2:00p [facility] Alfred Gilbert R55 Syncope and Of Physical Education Specialist Romano, DO FACC collapse R94.31 Abnormal electrocardiogram [ECG] [EKG] I48.91 Unspecified atrial fibrillation I63.9 Cerebral infarction, unspecified Office Visit 05/06/2015 3:31p [facility] Anshul Gupta, R55 Syncope and Assoc,pc M.DRk collapse Hospitalists Z85.51 Personal history of malignant neoplasm of bladder R00.1 Bradycardia, unspecified [facility] Syncope and Assoc,isabelle FLOWERS M.D. collapse Hospitalists I48.1 Persistent atrial fibrillation Z86.73 Prsnl hx of TIA (TIA), and cereb infrc w/o resid deficits Plan of Treatment Future Appointment(s):07/07/2018 4:00 pm - Ayo Rodriguez M.D. at [facility]06/10/2018 - Ayo Rodriguez M.D.M06.4 Inflammatory ooaycehtihwzrscE16.9 Polyneuropathy, gcfyqgndmmqG66.8 Other disturbances of skin efropqrdaT12.673 Pain in unspecified footFollow up:Follow up in 3 to 4 weeks or sooner if needed
--- OUTSIDE RECORDS SUMMARY | 2018-07-04 15:18 | XMS REPORT | Continuity of Care Document ---
:1945 External Reference #:[id number] Author Name Diana Barragan M.D., R.D. Address [address] [place] [address] Care Team Providers Name Role Phone ELY Duarte Care Team Information Director Of Accounts Receivable Unavailable Payers Date Identification Numbers Payment Provider Subscriber Policy Number: [id number] Medicare - [facility] Shin Gamez PayID: [id number] [address] [place] [address] Effective: 2012 Policy Number: Ghi([facility] [employer] [id number] [facility]) Group Name: [employer] 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 Tobacco Use Start: Unknown End: Former Cigarette Smoker quit 2008, used to Unknown smoke 1 PPD since 15 ETOH Use consumes 4-5 beers per day Recreational Drug Use Denies Drug Use Allergies, Adverse Reactions, Alerts Active Allergies Reaction Severity Comments Date Zithromax rash 04/21/2013 Inactive Allergies NKDA 10/06/2012 Medications Active Medications SIG Qnty Indications Ordering Date Provider Doxycycline 2 tabs po now 2tabs Diana Barragan, 05/31/2018 Monodarlingate Ellis, RRogelio 100mg Tablets Prednisone 1 tab by mouth 4tabs J45.901 Joon 05/14/2018 50mg daily for 4 days MD Diamond Tablets Guaifenesin-Codeine 5-10 milliliters 240ml J18.9 Joon 03/29/2018 every 4-6 hours as MD Diamond 100-10mg/5ML Syrup needed cough Ketoconazole use to shampoo 120ml L21.9 [facility] R. 07/28/2016 2% head daily for up Storm, FLOOR CARE TECHNICIAN-C Shampoo to 2 weeks as needed Proventil HFA 2 puffs every [address] [facility] 07/26/2015 hours if needed [place], [place] 108(90Base) mcg/Act for cough, wheeze, Aerosol shortness of breath Advair Diskus inhale one puff by 180units J44.9 Junior R. 07/26/2015 mouth twice a day Vicente, FLOOR CARE TECHNICIAN-C 500-50mcg/Dose Aerosol Nasonex spray 1 spray into 51units Joon 06/21/2015 50mcg/Act each nostril twice MD Diamond Suspension daily as needed Hydrocodone-Acetamin take one tablet by 60tabs Junior RRk 07/06/2014 ophen mouth twice a day Storm, FLOOR CARE TECHNICIAN-C 10-325mg as needed for Tablets severe pain; maximum daily dose=2 Cartia XT Take One Capsule 90caps [place] R. 03/09/2013 120mg Caps By Mouth Every Day Vicente, FLOOR CARE TECHNICIAN-C ER 24HR Allopurinol Take One Tablet By 30tabs Diana Barragan, 10/06/2012 300mg Mouth Every Day Tonja Corral Tablets Warfarin Sodium Take 1 & 1/2 90tabs [facility] 10/06/2012 1mg Tablets By Mouth 5 MD Diamond Tablets Days Per Week And Take Two Tablets Daily 2 Days Per Week as Directed Metoprolol Succinate take 1/2 tab Unknown ER (25mg) by mouth 25mg Tablets ER every day 24HR Gabapentin take 1 capsule Unknown 100mg daily for Capsules neuropathic pain per Dr. Rodriguez History Medications Augmentin 1 take by mouth 20tabs J18.9 Joon 03/29/2018 - 875-125mg tablet every 12 MD Diamond 05/14/2018 Tablets hours for 10 days for infection Prednisone take 3 tabs by 20tabs J18.9 Joon 03/29/2018 - 20mg mouth x 3 days, MD Diamond 05/14/2018 Tablets then 2 tabs by mouth x 3 days, then 1 tab by mouth x 3 days then 1/2 tab by mouth x 4 days Prednisone 1 tab by mouth 3tabs J44.1 Joon 03/17/2018 - 50mg every day MD Diamond 03/29/2018 Tablets Doxycycline Hyclate 1 tab by mouth 10tabs J44.1 Joon 03/17/2018 - twice a day MD Diamond 03/29/2018 100mg Tablets Spiriva Respimat Inhale 2 puffs by 4gm J44.1 Joon 11/09/2017 - mouth daily for MD Diamond 03/29/2018 2.5mcg/Act Aerosol chronic obstructive lung disease Doxycycline Hyclate 1 take by mouth 10caps J44.0 [facility] 10/26/2017 - capsule 2 times [employer], [place] [employer] 11/09/2017 100mg Capsules per day for 10 days for infection Prednisone 1 tab by mouth 4tabs J44.0 [facility] 10/26/2017 - 50mg daily for 4 days Andrey [place] 11/09/2017 Tablets Fluconazole 1 tab by mouth 4tabs B36.0 [facility] 07/03/2017 - 150mg every 2 weeks MD Diamond 03/29/2018 Tablets Augmentin 1 take by mouth 10tabs J44.0 [facility] 05/20/2017 - 875-125mg tablet every 12 MD Diamond 07/03/2017 Tablets hours for 5 days for infection Doxycycline Hyclate 1 take by mouth 10caps J44.0 [facility] 05/06/2017 - capsule 2 times MD Diamond 05/20/2017 100mg Capsules per day for 10 days for infection Prednisone 1 tab by mouth 4tabs J44.0 [facility] 05/06/2017 - 50mg daily for 4 days MD Diamond 05/20/2017 Tablets Guaifenesin-Codeine 5 milliliters by 180ml J06.9 Joon 11/24/2016 - mouth every 4 MD Diamond 03/29/2018 100-10mg/5ML Syrup hours as needed cough...do not take while taking hydrocodone Benzonatate Take One Capsule 30caps J06.9 Junior Velez 04/10/2016 - 200mg By Mouth Three ELY Zhang 05/20/2017 Capsules Times A Day For Cough Vitamin B-12 1 po daily 90tabs Junior R. 09/20/2015 - [facility] 07/28/2016 1000mcg Tablets Magnesium 1 by mouth every 30tabs G47.62 [facility] R. 08/16/2015 - 500mg day before bed [facility] 05/06/2017 Tablets Benzonatate 1 by mouth three 30caps J44.9 [facility] R. 07/26/2015 - 200mg times a day if [facility] 04/10/2016 Capsules needed for cough Digoxin Take One Tablet 30tabs Diana Barragan, 06/21/2015 - 125mcg By Mouth Every M.Fernando, R.D. 05/14/2018 Tablets Day Amoxicillin/Clavula 1 by mouth three 20tabs J01.90 Diana Barragan, 2015 - gay Potassium times a day for M.Fernando, R.D. 07/26/2015 10 days 875-125mg Tablets Digoxin Take 1 Tablet By 90tabs Lottie Velásquez, 06/18/2015 - 250mcg Mouth Every Day [facility] 06/21/2015 Tablets [facility] 12.[facility] - Succinate ER Tablet By Mouth [facility] 11/24/2016 100mg Every Day Tablets ER 24HR Doxycycline Hyclate 1 po bid 14caps S50.862A Diana Barragan, 02/03/2015 - Ellis, R.D. 06/21/2015 100mg Capsules Lyrica 2 by mouth in in 90caps Diana Barragan, 01/01/2015 - 50mg the morning, 1 in Ellis, R.D. 05/10/2015 Capsules at night mdd 2 Cetirizine HCL 1 by mouth every 30tabs Joon 12/28/2014 - 10mg day MD Diamond 06/21/2015 Tablets Ciprofloxacin HCL 1 by mouth twice 20tabs 599.0 Nate Samayoa 10/13/2014 - a day x 10 days [facility] 05/10/2015 500mg Tablets Ondansetron dissolve 1 tab by 10ten 787.91 Lottie Velásquez, 03/14/2014 - 4mg mouth three times [facility] 06/21/2015 Tablets Dispers a day as needed nausea Levofloxacin 1 tablet by mouth 7tabs 728.87 Lottie Velásquez, 11/23/2013 - 750mg every day x7 [facility] 01/03/2014 Tablets days Gabapentin Take 1-2 Capsules 180caps G60.8 Diana Barragan, 11/23/2013 - 300mg By Mouth Three M.D., R.D. 06/21/2015 Capsules Times A Day Ciprofloxacin HCL take 1 tablet by 14tabs 599.0 Lottie Velásquez, 2013 - mouth twice a day [facility] 01/03/2014 500mg Tablets x 7 days Vitamin B12 1 po qd Diana Barragan, 07/13/2013 - 1000mcg M.DRk, R.D. 06/21/2015 Tablets Prednisone 3 po qd x 2days, QS 693.0 [facility] 05/05/2013 - 20mg 2 po qd x 2 days, [facility], [facility] 07/13/2013 Tablets 1 po qd x 2 days, 1/2 po qd x 2 days Zyrtec Allergy 1 by mouth daily 30tabs Joon 05/05/2013 - 10mg for allergies MD Diamond 06/21/2015 Tablets Hydroxyzine HCL 1 po qid prn 40tabs 693.0 [facility] 04/21/2013 - itching [facility], [facility] 05/01/2013 25mg Tablets Prednisone one pill po daily 5tabs 693.0 [facility] 04/21/2013 - 50mg for 5 days for [facility], [facility] 05/01/2013 Tablets breathing Triamcinolone apply to affected 30g Diana Barragan 04/11/2013 - Acetonide area bid prn M.DkR, R.D. 06/21/2015 0.1% Cream Azithromycin 2 po today then 1 6tabs 491.8 Diana Barragan, 04/11/2013 - 250mg po daily for 4 M.D., R.D. 04/21/2013 Tablets days Metoprolol Take 1 Tablet 90tabs Diana Barragan, 03/18/2013 - Succinate ER Every Morning M.D., R.D. 05/10/2015 200mg Tablets ER 24HR Hydrocodone/Acetami 1 by mouth twice 60tabs Junior Velez 10/20/2012 - nophen a day as needed Vicente [facility] 07/06/2014 10-325mg Tablets Toprol XL 1 po q Am 90tabs Diana Barragan, 10/06/2012 - 200mg M.DRk, R.D. 03/18/2013 Tablets ER 24HR Diltiazem CD 1 po qd 90caps Diana Barragan, 10/06/2012 - 120mg M.D., R.D. 03/09/2013 Caps ER 24HR Digox Take 1 Tablet By 90tabs Lottie Velásquez, 10/06/2012 - 0.25mg Mouth Every Day [facility] 06/18/2015 Tablets Simvastatin Take 1 Tablet By 90tabs Lottie Velásquez, 10/06/2012 - 20mg Mouth AT Bedtime [facility] 06/21/2015 Tablets Levetiracetam 1 1/2 tabs twice Unknown - 500mg daily 04/10/2016 Tablets Levofloxacin Unknown - 500mg 04/10/2016 Tablets Divalproex Sodium Jerson Kidd, - ER MD 07/28/2016 500mg Tablets ER 24HR Prednisone 3 by mouth every Unknown - 20mg day x 2days, 2 by 05/06/2017 Tablets mouth every day x 2 days, 1 by mouth every day x 2 days, 1/2 by mouth every day x 2 days Omeprazole 1 by mouth every 90caps Junior R. - 20mg day Vicente [facility] 05/06/[address] Aguileras CPT Code Status Date Vaccine Lot # [id number] Given 11/09/2017 Prevnar-13 Pneumococcal Conjugate Vaccine [id number] Given 11/09/2017 Influenza Vaccine High Dose PF [id number] Given 03/04/2017 Influenza Vaccine High Dose PF [id number] Given 01/30/2016 Influenza Vaccine High Dose PF [id number] Refused 11/10/2012 Influenza Vaccine-Preservative Free 3 Yrs And Above Vital Signs Date Vital Result Comment 06/12/2018 10:44am Weight 147.00 lb Weight 66.679 kg BP Systolic 128 mmHg BP Diastolic 78 mmHg Heart Rate 90 /min Body Temperature 98.0 F O2 % BldC Oximetry 99 % 05/14/2018 2:13pm Weight 150.00 lb Weight 68.040 kg BP Systolic 98 mmHg BP Diastolic 62 mmHg Heart Rate 98 /min Body Temperature 97.9 F Respiratory Rate 16 /min O2 % BldC Oximetry 98 % 03/29/2018 3:33pm Weight 148.00 lb Weight 67.133 [...] 159.00 lb Weight 72.122 kg BP Systolic 78702 mmHg BP Diastolic 66 mmHg Heart Rate 64 /min 03/14/2014 12:00pm Weight 155.00 lb Weight 70.308 kg BP Systolic 130 mmHg [id number]/60 BP Diastolic 58 mmHg [id number]/[id number]/06r205/60 Heart Rate 61 /min [id number] Body Temperature 97.1 F O2 % BldC [...] Facility Test Result H/L Range Note Inr/Protime [facility] Inr 2.48 High 0.82 -1.09 1 9 [phone] Inr/Protime [facility] Inr 2.40 High 0.77 -1.02 9 [phone] Order In Office Nebulizer <pending> 9 Treatment Inr/Protime [facility] Inr 1.99 High 0.77 -1.02 9 [phone] Inr/Protime [facility] Inr 2.46 High 0.77 -1.02 9 [phone] Inr/Protime [facility] Inr 1.70 High 0.77 -1.02 9 [phone] Inr/Protime [facility] Inr 2.60 High 0.77 -1.02 2 9 [phone] Inr/Protime [facility] Inr 2.50 High 0.77 -1.02 3 9 [phone] Inr/Protime [facility] Inr 4.06 High 0.77 -1.02 4 9 [phone] Laboratory test [facility] Uric Acid 4.8 mg /dL N 4.4-7.6 5, 6 finding 9 [phone] Inr/Protime [facility] Inr 1.79 High 0.77 -1.02 9 [phone] Lipid Profile [facility] Triglycerides 160 mg/dL 7 (Trig/Chol/HDL) 9 [phone] Cholesterol 165 mg/dL 8 HDL Cholesterol 52.5 mg/dL 9 LDL Cholesterol 81 mg/dL 10 Comp Metabolic Panel 03/17/2018 [facility] Sodium 142 mmol/L N 135-145 [phone] Potassium 4.5 mmol/L N 3.5-5.0 Chloride 107 [...] Egfr Non- 97.8 >60 Egfr 118.4 >60 11 CBC Auto Diff 03/17/2018 [facility] White Blood 3.8 10^3/uL N 3.5-10.8 [phone] Count Red Blood Count 3.71 10^6/uL Low 4.00-5.40 Hemoglobin 13.5 g/dL Low 14.0-18.0 Hematocrit 40 % Low 42-52 Mean Corpuscular Volume 109 fL High 80-94 12 Mean Corpuscular Hemoglobin 36 pg High 27-31 [...] Blood Cells % 0.1 Laboratory test 03/17/2018 [facility] Rheumatoid < 10 IU/mL N <15 13 finding [phone] Factor C Reactive Protein 12.50 mg/L High <8.01 14 Inr/Protime 03/11/2018 [facility] Inr 1.78 High 0.77-1.02 15 [phone] Inr/Protime 03/03/2018 [facility] Inr 1.85 High 0.77-1.02 16 [phone] Inr/Protime 01/27/2018 [facility] Inr 2.05 High 0.77-1.02 17 [phone] Inr/Protime 12/30/2017 [facility] Inr 2.84 High 0.77-1.02 18 [phone] Inr/Protime 12/02/2017 [facility] Inr 2.70 High 0.77-1.02 19 [phone] Inr/Protime 11/04/2017 [facility] Inr 2.04 High 0.77-1.02 20 [phone] Inr/Protime 10/29/2017 [facility] Inr 2.25 High 0.77-1.02 21 [phone] Inr/Protime 10/14/2017 [facility] Inr 2.47 High 0.77-1.02 22 [phone] Inr/Protime 10/07/2017 [facility] Inr 2.22 High 0.77-1.02 23 [phone] Inr/Protime 09/30/2017 [facility] Inr 3.70 High 0.77-1.02 24 [phone] Inr/Protime 08/27/2017 [facility] Inr 2.49 High 0.77-1.02 25 [phone] Inr/Protime 08/13/2017 [facility] Inr 2.82 High 0.77-1.02 26 [phone] Inr/Protime 08/05/2017 [facility] Inr 1.94 High 0.77-1.02 27 [phone] Inr/Protime 07/28/2017 [facility] Inr 1.64 High 0.77-1.02 28 [phone] Laboratory test 07/23/2017 [facility] Blood Urea 9 mg /dL N 6-24 finding [phone] Nitrogen BUN Creatinine 07/23/2017 [facility] Creatinine 0.83 N 0.67-1.17 [phone] mg/dL Egfr Non- 91.3 >60 Egfr 117.5 >60 29 Inr/Protime 07/21/2017 [facility] Inr 1.93 High 0.77-1.02 [phone] Inr/Protime 07/07/2017 [facility] Inr 1.95 High 0.77-1.02 [phone] Inr/Protime 06/03/2017 [facility] Inr 2.33 High 0.77-1.02 [phone] Inr/Protime 05/20/2017 [facility] Inr 2.34 High 0.77-1.02 [phone] Inr/Protime 05/13/2017 [facility] Inr 2.40 High 0.77-1.02 [phone] Inr/Protime 05/06/2017 [facility] Inr 3.32 High 0.77-1.02 [phone] Inr/Protime 04/23/2017 [facility] Inr 4.44 High 0.77-1.02 [phone] Inr/Protime 04/16/2017 [facility] Inr 3.29 High 0.77-1.02 [phone] Inr/Protime 03/25/2017 [facility] Inr 2.96 High 0.77-1.02 [phone] Inr/Protime 03/11/2017 [facility] Inr 2.53 High 0.77-1.02 [phone] Inr/Protime 03/04/2017 [facility] Inr 2.36 High 0.77-1.02 [phone] Inr/Protime 02/26/2017 [facility] Inr 1.85 High 0.77-1.02 [phone] Inr/Protime 02/06/2017 [facility] Inr 2.31 High 0.77-1.02 30 [phone] Inr/Protime 01/23/2017 [facility] Inr 2.00 High 0.77-1.02 31 [phone] Inr/Protime 01/16/2017 [facility] Inr 1.80 High 0.77-1.02 32 [phone] Inr/Protime 12/16/2016 [facility] Inr 2.11 High 0.89-1.11 [phone] Inr/Protime 11/18/2016 [facility] Inr 2.04 High 0.89-1.11 [phone] Inr/Protime 10/21/2016 [facility] Inr 2.25 High 0.89-1.11 [phone] Inr/Protime 09/19/2016 [facility] Inr 3.04 High 0.89-1.11 [phone] Inr/Protime 08/14/2016 [facility] Inr 2.70 High 0.89-1.11 [phone] Laboratory test 07/21/2016 [facility] Legionella SEE 33 finding [phone] Urine Antigen RESULT BELOW Blood Culture SEE RESULT BELOW 34 Urine Culture SEE RESULT BELOW 35 Urinalysis Profile 07/21/2016 [facility] Urine Color Yellow N [phone] Urine Appearance Cloudy N Urine Specific [place] 1.015 N 1.010-1.030 Urine pH 8.0 N [...] Cryst Present Abnormal Absent Laboratory test 07/21/2016 [facility] Partial 41.7 High 26.0-36.3 finding [phone] Thrombo Time seconds PTT Inr/Protime 07/21/2016 [facility] Inr 2.61 High 0.89-1.11 [phone] CBC Auto Diff 07/21/2016 [facility] White Blood 6.6 10^3/uL N 3.5-10.8 [phone] Count Red Blood Count 4.01 10^6/uL N 4.0-5.4 Hemoglobin 14.1 g/dL N 14.0-18.0 Hematocrit 43 % N 42-52 Mean Corpuscular Volume 106 fL High 80-94 36 Mean Corpuscular Hemoglobin 35 pg High 27-31 [...] Cells % 0.1 N Laboratory test 07/21/2016 [facility] Lactic Acid 1.2 mmol/L N 0.5-2.0 37 finding [phone] B Type Natriuretic Peptide 174 pg/mL High 38 Laboratory test 07/21/2016 [facility] TSH (Thyroid 2.79 mcIU/mL N 0.34-5.60 finding [phone] Stim Horm) Laboratory test 07/21/2016 [facility] Magnesium 2.0 mg/dL N 1.9-2.7 finding [phone] Lipase 29 U/L N 11.0-82.0 Creatine Kinase 127 U/L N 10-223 Troponin I 0.00 ng/mL N <0.04 C Reactive Protein 17.87 mg/L High < 5.00 39 Comp Metabolic Panel 07/21/2016 [facility] Sodium 142 mmol/L N 133-145 [phone] Potassium 4.1 mmol/L N 3.5-5.0 Chloride 108 [...] 91.6 N >60 Egfr 117.8 N >60 40 CKMB 07/21/2016 [facility] CKMB ng/mL 5.8 ng/mL N 0.6-6.3 [phone] Inr/Protime 07/15/2016 [facility] Inr 3.00 High 0.89-1.11 [phone] Inr/Protime 06/11/2016 [facility] Inr 2.89 High 0.89-1.11 [phone] Laboratory 05/21/2016 [facility] Hemoglobin A1c 5.6 % N Less than 41 test finding [phone] (Glyco HGB) 6.0 C Reactive Protein 6.09 mg/L High < 5.00 42 Inr/Protime 05/21/2016 [facility] Inr 2.61 High 0.89-1.11 [phone] Laboratory test 05/21/2016 [facility] TSH 2.11 N 0.34-5.60 43 finding [phone] (Thyroid mcIU/mL Stim Horm) Free T4 (Free Thyroxine) 0.69 ng/dL N 0.61-1.12 44 T3 Total 0.73 ng/mL Low 0.87-1.78 45 Urine DIP 05/21/2016 In House Lab Leukocytes ++ Neg [phone] Urine Nitrites positive Neg Urobilinogen neg Norm Total Protein, Urine trace Neg Urine pH 9 High 5-6 Urine Blood +++ Neg Specific [place] 1.005 Low 1.01-1.02 Urine Ketones neg Neg Urine Bilirubin neg Neg Urine Glucose neg Norm CBC Auto Diff 05/21/2016 [facility] White Blood 4.8 10^3/uL N 3.5-10.8 [phone] Count Red Blood Count 3.80 10^6/uL Low 4.0-5.4 Hemoglobin 13.2 g/dL Low 14.0-18.0 Hematocrit 40 % Low 42-52 Mean Corpuscular Volume 106 fL High 80-94 46 Mean Corpuscular Hemoglobin 35 pg High 27-31 [...] % 0.1 N Comp Metabolic Panel 05/21/2016 [facility] Sodium 140 mmol/L N 133-145 [phone] Potassium 3.9 mmol/L N 3.5-5.0 Chloride 106 [...] 101.4 N >60 Egfr 130.4 N >60 47 Inr/Protime 05/06/2016 [facility] Inr 2.72 High 0.89-1.11 [phone] Inr/Protime 04/28/2016 [facility] Inr 2.21 High 0.89-1.11 [phone] Inr/Protime 04/17/2016 [facility] Inr 1.33 High 0.89-1.11 [phone] Inr/Protime 04/10/2016 [facility] Inr 1.36 High 0.89-1.11 [phone] CBC Auto Diff 03/30/2016 [facility] White Blood 5.0 N 3.5-10.8 [phone] Count 10^3/uL Red Blood Count 4.02 10^6/uL N 4.0-5.4 [...] Blood Cells % 0.3 N Inr/Protime 03/30/2016 [facility] Inr 2.66 High 0.89-1.11 [phone] Comp Metabolic 03/30/2016 [facility] Sodium 134 mmol/ L N 133-145 Panel [phone] Chloride 100 mmol/L Low 101-111 Co2 Carbon [...] 85.6 N >60 Egfr 110.1 N >60 48 Potassium TNP mmol/L N 3.5-5.0 Anion Gap TNP mmol/L N 2-11 Ast TNP U/L N 13-39 Laboratory test 03/30/2016 [facility] Magnesium 2.1 mg/dL N 1.9-2.7 49 finding [phone] Troponin-I (TnI) 0.00 ng/mL N <0.04 50 TSH (Thyroid Stimulating Horm) 8.60 mcIU/mL High 0.34-5.60 51 Lactic Acid 3.2 mmol/L High 0.5-2.0 52 Valproic Acid (Depakene) 121.0 g/mL High 50-100 53 Inr/Protime 03/26/2016 [facility] Inr 3.50 High 0.89-1.11 [phone] Inr/Protime 03/12/2016 [facility] Inr 2.89 High 0.89-1.11 [phone] Inr/Protime 03/05/2016 [facility] Inr 2.33 High 0.89-1.11 [phone] Inr/Protime 02/25/2016 [facility] Inr 1.68 High 0.89-1.11 [phone] Inr/Protime 02/07/2016 [facility] Inr 3.39 High 0.89-1.11 [phone] Inr/Protime 01/30/2016 [facility] Inr 3.82 High 0.89-1.11 [phone] Inr/Protime 01/23/2016 [facility] Inr 3.33 High 0.89-1.11 [phone] Inr/Protime 01/15/2016 [facility] Inr 3.53 High 0.89-1.11 [phone] Inr/Protime 01/08/2016 [facility] Inr 2.73 High 0.89-1.11 [phone] Inr/Protime 12/27/2015 [facility] Inr 3.42 High 0.89-1.11 [phone] Inr/Protime 12/12/2015 [facility] Inr 2.75 High 0.89-1.11 [phone] Inr/Protime 12/03/2015 [facility] Inr 2.17 High 0.89-1.11 [phone] Laboratory test 11/27/2015 [facility] Inr/Protim 2.04 High 0.89-1.11 finding [phone] e Partial Thrombo Time PTT 34.6 seconds N 26.0-36.3 CBC Auto Diff 11/27/2015 [facility] White Blood 7.9 10^3/uL N 3.5-10.8 [phone] Count Red Blood Count 3.65 10^6/uL Low 4.0-5.4 Hemoglobin 13.2 g/dL Low 14.0-18.0 Hematocrit 39 % Low 42-52 Mean Corpuscular Volume 107 fL High 80-94 54 Mean Corpuscular Hemoglobin 36 pg High 27-31 [...] Nucleated Red Blood Cells % 0 N Laboratory test 11/27/2015 [facility] Lactic Acid 2.3 mmol/L High 0.5-2.0 55 finding [phone] B Type Natriuretic Peptide 167 pg/mL High 56 Troponin I 0.00 ng/mL N <0.03 57 Comp Metabolic Panel 11/27/2015 [facility] Sodium 136 mmol/L N 133-145 [phone] Potassium 4.2 mmol/L N 3.5-5.0 Chloride 103 [...] 75.6 N >60 Egfr 97.2 N >60 58 Laboratory test 11/27/2015 [facility] Magnesium 1.8 mg/dL Low 1.9-2.7 finding [phone] TSH (Thyroid Stim Horm) 2.59 mcIU/mL N 0.34-5.60 Vitamin B12 789 pg/mL N 180-914 59 Inr/Protime 11/23/2015 [facility] Inr 2.11 High 0.89-1.11 [phone] Inr/Protime 11/16/2015 [facility] Inr 1.82 High 0.89-1.11 [phone] Inr/Protime 11/08/2015 [facility] Inr 3.40 High 0.89-1.11 [phone] Inr/Protime 11/01/2015 [facility] Inr 3.07 High 0.89-1.11 [phone] Inr/Protime 10/24/2015 [facility] Inr 3.28 High 0.89-1.11 [phone] Inr/Protime 10/17/2015 [facility] [facility] Inr 3.21 High 0.89-1.11 [phone] Inr/Protime 10/09/2015 [facility] Inr 3.21 High 0.89-1.11 [phone] Inr/Protime 09/28/2015 [facility] Inr 2.36 High 0.89-1.11 60 [phone] Inr/Protime 09/21/2015 [facility] Inr 1.75 High 0.89-1.11 61 [phone] CBC Auto Diff 09/14/2015 [facility] White Blood 7.7 N 3.5-10.8 62 [phone] Count 10^3/uL Red Blood Count 3.69 10^6/uL [...] % 0.3 N Comp Metabolic Panel 09/14/2015 [facility] Sodium 136 mmol/L N 133-145 [phone] Potassium 3.9 mmol/L N 3.5-5.0 Chloride 102 [...] 104.9 N >60 Egfr 134.9 N >60 63 Laboratory test 09/14/2015 [facility] TSH (Thyroid 2.67 N 0.34-5.60 64 finding [phone] Stimulating mcIU/mL Horm) Vitamin D Total 25(Oh) 31.1 ng/mL N 30-50 65 Vitamin B12 257 pg/mL N 180-914 66 Inr/Protime 09/13/2015 [facility] Inr 1.29 High 0.89-1.11 67 [phone] Inr/Protime 09/05/2015 [facility] Inr 1.43 High 0.89-1.11 68 [phone] Laboratory test 08/16/2015 [facility] Magnesium 2.0 N 1.9-2.7 69, 70 finding [phone] mg/dL Basic Metabolic 08/16/2015 [facility] Sodium 138 N 133-145 Panel [phone] mmol/L Potassium 5.0 mmol/L N 3.5-5.0 Chloride 103 mmol/L N 101-111 Co2 Carbon Dioxide 27 mmol/L N 22-32 Anion Gap 8 mmol/L N 2-11 Glucose 107 mg/dL High 70-100 Blood Urea Nitrogen 13 mg/dL N 6-24 Creatinine 0.83 mg/dL N 0.67-1.17 BUN/Creatinine Ratio 15.7 N 8-20 Calcium 9.4 mg/dL N 8.6-10.3 Egfr Non- 91.9 N >60 Egfr 118.1 N >60 71 Inr/Protime 08/06/2015 [facility] Inr 2.05 High 0.89-1.11 72 [phone] Inr/Protime 07/26/2015 [facility] Inr 1.51 High 0.89-1.11 73 [phone] Inr/Protime 06/21/2015 [facility] Inr 2.27 High 0.89-1.11 74 [phone] Inr/Protime 06/14/2015 [facility] Inr 1.70 High 0.89-1.11 75 [phone] Inr/Protime 06/04/2015 [facility] Inr 1.66 High 0.89-1.11 76 [phone] Lyme Western 05/10/2015 [facility] Lyme Negative N Negative Blot [phone] Disease IgG Ab WB Lyme Disease IgG Bands Present No bands detecte <SEE NOTE> kDa N 77 Lyme Disease IgM Ab WB Negative N Negative Lyme Disease IgM Bands Present No bands detecte <SEE NOTE> kDa N 78 Lyme Disease Interpretation See Comment N 79 Inr/Protime 05/10/2015 [facility] Inr 2.13 High 0.89-1.11 [phone] CBC Auto Diff 05/05/2015 [facility] White Blood 6.6 N 3.5-10.8 [phone] Count 10^3/uL Red Blood Count 3.66 10^6/uL [...] Blood Cells % 0.1 N Inr/Protime 05/05/2015 [facility] Inr 2.65 High 0.89-1.11 [phone] Laboratory test 05/05/2015 [facility] Partial 41.2 High 26.0-36.3 finding [phone] Thrombo seconds Time PTT B Type Natriuretic Peptide 187 pg/mL High 80 Comp Metabolic Panel 05/05/2015 [facility] Sodium 133 mmol/L N 133-145 [phone] Potassium 3.9 mmol/L N 3.5-5.0 Chloride 98 [...] 74.1 N >60 Egfr 95.3 N >60 81 Laboratory test 05/05/2015 [facility] Phosphorus 3.3 mg/dL N 2.5-5.0 finding [phone] Magnesium 2.0 mg/dL N 1.9-2.7 Digoxin 1.3 ng/ml N 0.8-2.0 Troponin I 0.03 ng/mL High <0.03 82 TSH (Thyroid Stim Horm) 2.86 ?IU/mL N 0.34-5.60 Free T4 0.95 ng/dL N 0.61-1.12 Inr/Protime 04/24/2015 [facility] Inr 2.19 High 0.89-1.11 [phone] Inr/Protime 04/17/2015 [facility] Inr 1.79 High 0.89-1.11 [phone] Inr/Protime 03/19/2015 [facility] Inr 2.54 High 0.89-1.11 [phone] Inr/Protime 02/26/2015 [facility] Inr 2.54 High 0.89-1.11 [phone] Inr/Protime 02/12/2015 [facility] Inr 2.76 High 0.89-1.11 [phone] Inr/Protime 02/05/2015 [facility] Inr 1.93 High 0.89-1.11 [phone] Inr/Protime 01/29/2015 [facility] Inr 1.90 High 0.89-1.11 [phone] Inr/Protime 01/22/2015 [facility] Inr 1.57 High 0.89-1.11 [phone] Inr/Protime 01/15/2015 [facility] Inr 1.55 High 0.89-1.11 [phone] Lyme Western 01/01/2015 [facility] Lyme Disease Negative N Negative Blot [phone] IgG Ab WB Lyme Disease IgG Bands Present No bands detecte <SEE NOTE> kDa N 83 Lyme Disease IgM Ab WB Negative N Negative Lyme Disease IgM Bands Present No bands detecte <SEE NOTE> kDa N 84 Lyme Disease Interpretation See Comment N 85 Comp Metabolic Panel 01/01/2015 [facility] Sodium 136 mmol/L N 133-145 [phone] Potassium 4.7 mmol/L N 3.5-5.0 Chloride 102 [...] 95.8 N >60 Egfr 123.3 N >60 86 Inr/Protime 01/01/2015 [facility] Inr 2.01 High 0.89-1.11 87 [phone] Inr/Protime 12/25/2014 [facility] Inr 3.47 High 0.89-1.11 88 [phone] Inr/Protime 11/23/2014 [facility] Inr 2.77 High 0.78-1.07 [phone] Inr/Protime 10/26/2014 [facility] Inr 2.05 High 0.78-1.07 [phone] Urine DIP 10/13/2014 In House Lab Specific 1.010 1.01-1.02 (607)- - [place] Urine pH 7 High 5-6 Leukocytes ++ Neg Urine Nitrites pos Neg Total Protein, Urine ++ Neg Urine Glucose norm Norm Urine Ketones neg Neg Urobilinogen 1 High Norm Urine Bilirubin ++ Neg Urine Blood about 250 Jorge/uL Neg Laboratory test 10/13/2014 [facility] Urine Culture And SEE RESULT 89 finding [phone] Sensitivities BELOW Urinalysis 10/13/2014 [facility] Urine Color Tessie N Profile [phone] Urine Appearance Cloudy N Urine Specific [place] 1.016 N 1.010-1.030 Urine pH 6.0 N [...] Urine Bacteria 1+ Abnormal Absent Inr/Protime 09/28/2014 [facility] Inr 2.30 High 0.78-1.07 [phone] Inr/Protime 09/14/2014 [facility] Inr 2.34 High 0.78-1.07 [phone] Inr/Protime 09/06/2014 [facility] Inr 1.88 High 0.78-1.07 [phone] Inr/Protime 08/23/2014 [facility] Inr 1.93 High 0.78-1.07 [phone] Inr/Protime 08/14/2014 [facility] Inr 1.84 High 0.78-1.07 [phone] Inr/Protime 07/17/2014 [facility] Inr 2.01 High 0.78-1.07 [phone] Inr/Protime 06/15/2014 [facility] Inr 2.29 High 0.78-1.07 [phone] Inr/Protime 06/01/2014 [facility] Inr 1.89 High 0.78-1.07 [phone] Inr/Protime 05/18/2014 [facility] Inr 1.90 High 0.78-1.07 [phone] Inr/Protime 04/26/2014 [facility] Inr 2.39 High 0.78-1.07 [phone] Inr/Protime 04/18/2014 [facility] Inr 2.08 High 0.78-1.07 [phone] Inr/Protime 04/10/2014 [facility] Inr 2.28 High 0.78-1.07 [phone] Inr/Protime 04/03/2014 [facility] Inr 3.10 High 0.78-1.07 90 [phone] Laboratory 04/03/2014 [facility] Hemoglobin A1c 6.4 % High Less than 91 test finding [phone] 6.0 Inr/Protime 03/27/2014 [facility] Inr 6.43 High 0.78-1.07 92 [phone] Laboratory 03/14/2014 [facility] C. difficile (SEE 93, test finding [phone] Amplified Dna NOTE) 94 Stool Panel 03/14/2014 [facility] Fecal (SEE 95 (CMC) [phone] Lactoferrin NOTE) (Stool WBC) O P: Giardia/Cryptospor Screen (SEE NOTE) 96 Stool Culture (SEE NOTE) 97 Stool For 03/14/2014 [facility] Stool Occult (SEE NOTE) 98 Blood [phone] Blood CBC Auto Diff 03/14/2014 [facility] White Blood 6.4 10^3/uL N 4.8-10.8 [phone] Count Red Blood Count 4.37 10^6/uL N [...] Cells % 0.1 N Comp Metabolic Panel 03/14/2014 [facility] Sodium 138 mmol/L N 133-145 [phone] Potassium 4.5 mmol/L N 3.5-5.0 Chloride 107 [...] 89.6 N >60 Egfr 115.3 N >60 99 Laboratory test 03/14/2014 [facility] Lipase 84 U/L High 11.0-82.0 finding [phone] Amylase 51 U/L N 29-103 Inr/Protime 03/10/2014 [facility] Inr 1.29 High 0.78-1.07 100 [phone] Clotest 02/27/2014 [facility] Clotest (SEE NOTE) 101 [phone] Surgical 02/27/2014 [facility] S RUN DATE: 102 Pathology [phone] 03/01/ <SEE NOTE> Basic Metabolic 02/06/2014 [facility] Sodium 137 mmol /L N 133-145 Panel [phone] Potassium 4.9 mmol/L N 3.5-5.0 Chloride 107 mmol/L N 101-111 Co2 Carbon Dioxide 25 mmol/L N 22-32 Anion Gap 5 mmol/L N 2-11 Glucose 118 mg/dL High 70-100 Blood Urea Nitrogen 12 mg/dL N 6-24 Creatinine 0.84 mg/dL N 0.67-1.17 BUN/Creatinine Ratio 14.3 N 8-20 Calcium 8.7 mg/dL N 8.6-10.3 Egfr Non- 90.9 N >60 Egfr 116.9 N >60 103 Inr/Protime 02/06/2014 [facility] Inr 2.66 High 0.85-1.06 [phone] Inr/Protime 01/17/2014 [facility] Inr 2.50 High 0.85-1.06 [phone] Inr/Protime 01/04/2014 [facility] Inr 2.04 High 0.85-1.06 [phone] Inr/Protime 12/28/2013 [facility] Inr 1.75 High 0.85-1.06 [phone] Urine Culture And 12/07/2013 [facility] Urine (SEE 104 Sensitivities [phone] Culture NOTE) Iron & Iron 11/23/2013 [facility] Iron 114 N 50- 212 Binding Capacity [phone] g/dL Unsaturated Iron Binding 330 g/dL N Total Iron Binding Capacity 444 g/dL N 250-450 % Iron Saturation 26 % N 15-55 CBC Auto Diff 11/23/2013 [facility] White Blood 5.8 10^3/uL N 4.8-10.8 [phone] Count Red Blood Count 3.91 10^6/uL Low [...] Red Blood Cells % 0.1 N Inr/Protime 11/23/2013 [facility] Inr 2.14 High 0.85-1.06 [phone] Urine DIP 11/23/2013 [facility] House Lab Specific [place] 1.015 1.01-1.02 (607)- - Urine pH 6 5-6 Leukocytes NEG Neg Urine Nitrites POS Neg Total Protein, Urine NEG Neg Urine Glucose NORM Norm Urine Ketones NEG Neg Urobilinogen NORM Norm Urine Bilirubin NEG Neg Urine Blood TRACE Neg Laboratory test 11/23/2013 [facility] Hemoglobin A1c 6.4 % High Less than 105 finding [phone] 6.0 Aldolase 6.0 U/L N <7.7 106 Adeline (Anti-Nuclear AB) Screen Negative N Negative Anti Double Stranded Dna Negative N Negative Erythrocyte Sed Rate 30 mm/Hr N 0-40 C Reactive Protein 4.59 mg/L N < 5.00 107 Creatine Kinase 150 U/L N 10-223 Urine Culture And 11/23/2013 [facility] Urine (SEE NOTE) 108 Sensitivities [phone] Culture Urine Culture And 11/01/2013 [facility] Urine (SEE NOTE) 109 Sensitivities [phone] Culture Laboratory test 11/01/2013 [facility] Lyme Disease Negative N Negative 110 finding [phone] Serology Erythrocyte Sed Rate 93 mm/Hr High 0-40 C Reactive Protein 106.18 mg/L High < 5.00 111 CBC Auto Diff 11/01/2013 [facility] White Blood 7.7 10^3/uL N 4.8-10.8 [phone] Count Red Blood Count 3.79 10^6/uL Low [...] Cells % 0.1 N Comp Metabolic Panel 11/01/2013 [facility] Sodium 139 mmol/L N 133-145 [phone] Potassium 4.3 mmol/L N 3.7-5.6 Chloride 104 [...] 106.8 N >60 Egfr 137.4 N >60 112 Laboratory test 11/01/2013 [facility] Magnesium 2.0 mg/dL N 1.9-2.7 finding [phone] Vitamin B12 246 pg/mL N 180-914 113 Urine DIP 11/01/2013 [facility] House [facility] Specific [place] 1.005 Low 1.01-1.02 (607)- - Urine pH 8 High 5-6 Leukocytes ++ High Neg Urine Nitrites POS High Neg Total Protein, Urine 100+ High Neg Urine Glucose NORM Norm Urine Ketones NEG Neg Urobilinogen NORM Norm Urine Bilirubin NEG Neg Urine Blood 250 High Neg Inr/Protime 10/28/2013 [facility] Inr 2.05 High 0.85-1.06 [phone] Inr/Protime 10/13/2013 [facility] Inr 2.17 High 0.85-1.06 [phone] Inr/Protime 09/30/2013 [facility] Inr 1.78 High 0.85-1.06 [phone] Inr/Protime 09/20/2013 [facility] Inr 3.25 High 0.85-1.06 [phone] Inr/Protime 09/05/2013 [facility] Inr 2.03 High 0.85-1.06 [phone] Inr/Protime 08/29/2013 [facility] Inr 1.63 High 0.85-1.06 [phone] Inr/Protime 08/22/2013 [facility] Inr 2.06 High 0.85-1.06 [phone] Inr/Protime 08/15/2013 [facility] Inr 1.93 High 0.85-1.06 [phone] Inr/Protime 08/10/2013 [facility] Inr 4.32 High 0.85-1.06 [phone] Inr/Protime 07/19/2013 [facility] Inr 2.45 High 0.85-1.06 [phone] Inr/Protime 06/20/2013 [facility] Inr 2.58 High 0.85-1.06 [phone] Laboratory test 05/27/2013 [facility] Vitamin B12 173 Low 180-914 114 finding [phone] pg/mL Methylmalonic Acid 0.23 nmol/mL <=0.40 115 Protein 05/27/2013 [facility] Total 7.2 g/dL 6.3 - Electrophoresis [phone] Protein(Pep) 7.9 Albumin 3.4 g/dL 3.4-4.7 Alpha-1 Globulin 0.2 g/dL 0.1-0.3 Alpha-2 Globulin 1.2 g/dL Abnormal 0.6-1.0 Beta Globulin 1.1 g/dL 0.7-1.2 Gamma Globulin 1.3 g/dL 0.6-1.6 Albumin/Globulin Ratio 0.90 Impression See Comment 116 Immunofixation See Comment 117 Comp Metabolic Panel 05/27/2013 [facility] Sodium 139 mmol/L 133-145 [phone] Potassium 4.4 mmol/L 3.7-5.6 Chloride 104 mmol/L [...] Egfr Non- 95.1 >60 Egfr 122.2 >60 118 Laboratory test 05/27/2013 [facility] Hemoglobin A1c 6.2 % High Less than 119 finding [phone] 6.0 Adeline (Anti-Nuclear AB) Screen Negative Negative Erythrocyte Sed Rate 22 mm/Hr 0-40 Syphilis 05/27/2013 [facility] Syphilis IgG Nonreactive Nonreactive 120 Screen [phone] RPR TNP Nonreactive RPR Titer TNP Pediatric/Maternal NO Laboratory 05/27/2013 [facility] Hepatitis C Nonreactive Nonreactive 121 test finding [phone] Antibody Hepatitis Be Antibody Negative Negative 122 Inr/Protime 05/27/2013 [facility] Inr 2.68 High 0.85-1.06 [phone] Heavy Metal Blool 05/27/2013 [facility] Arsenic Not Detected 0-12 [phone] ng/mL Lead 4 g/dL 0-9 Mercury <1 ng/mL 0-9 Cadmium 0.4 ng/mL 0.0-4.9 Street Address [address] [address] [address] <SEE NOTE> [address] [facility] [address] [facility] Guardian First Name KIANNA Guardian Last Name HILARY Home Phone [phone] Venous/Capillary Heavy Metals VENOUS Patient Race [place] 124 Inr/Protime 05/12/2013 [facility] Inr 3.16 High 0.85-1.06 [phone] Lipid Profile 04/11/2013 [facility] Triglycerides 249 125 (Trig/Chol/HDL) [phone] mg/dL Cholesterol 105 mg/dL 126 HDL Cholesterol 37.3 mg/dL 127 LDL Cholesterol 18 mg/dL 128 Laboratory test 04/11/2013 [facility] Magnesium 1.9 mg/dL 1.9-2.7 finding [phone] TSH (Thyroid Stimulating Horm) 2.23 IU/mL 0.34-5.60 Creatine Kinase 129 U/L 10-223 Comp Metabolic Panel 04/11/2013 [facility] Sodium 137 mmol/L 133-145 [phone] Potassium 5.1 mmol/L 3.7-5.6 Chloride 104 mmol/L [...] Egfr Non- 99.3 >60 Egfr 127.7 >60 129 Inr/Protime 04/11/2013 [facility] Inr 2.59 High 0.85-1.06 [phone] Inr/Protime 03/15/2013 [facility] Inr 2.09 High 0.85-1.06 [phone] Inr/Protime 02/15/2013 [facility] Inr 2.35 High 0.85-1.06 [phone] Inr/Protime 01/19/2013 [facility] Inr 2.72 High 0.85-1.06 130 [phone] Inr/Protime 01/05/2013 [facility] Inr 3.87 High 0.85-1.06 131 [phone] Inr/Protime 12/23/2012 [facility] Inr 3.06 High 0.85-1.06 132 [phone] Inr/Protime 12/09/2012 [facility] Inr 1.92 High 0.85-1.06 133 [phone] Inr/Protime 11/10/2012 [facility] Inr 2.70 High 0.87-0.97 [phone] Inr/Protime 10/27/2012 [facility] Inr 3.35 High 0.87-0.97 [phone] Inr/Protime 10/20/2012 [facility] Inr 1.79 High 0.87-0.97 [phone] 1 Standard intensity warfarin therapeutic range: 2.0-3.0 High intensity warfarin therapeutic range: 2.5-3.5 2 [id number] 3 [id number] 4 [id number] 5 [id number] 6 [id number] 7 Desirable: <150 Borderline High: 150-199 High: 200-499 Very High: >500 8 Desirable: <200 Borderline High: 200-239 High: >239 9 Low: <40 Desirable: 40-60 High: >60 10 Desirable: <100 Near Optimal: 100-129 Borderline High: 130-159 High: 160-189 Very High: >189 11 Because ethnic data is not always readily [...] 15-29 5 Kidney failure <15 (or dialysis) 12 Consistent with Previous Results Reported on 07/23/16 13 [id number] 14 [id number] 15 [id number] 16 [id number] 17 [id number] 18 [id number] 19 [id number] 20 [id number] 21 [id number] 22 [id number] 23 [id number] 24 [id number] 25 [id number] 26 [id number] 27 [id number] 28 [id number] 29 Because ethnic data is not always readily [...] 15-29 5 Kidney failure <15 (or dialysis) 30 Please note the change in INR reference range effective 17. 31 Please note the change in INR reference range effective 17. 32 Please note the change in INR reference range effective 17. 33 SEE RESULT BELOW Name: SHANNANSHIN : [address]: Asher Shane MD Acct: [id number] Unit: [id number] AGE: 70 Location: [place] [address] Re07/21/16 SEX: M Status: ADM IN SPEC: [id number] EFREN: 07/21/16-1532 [facility] DR: Hilario Coppola MD REQ: [id number] RECD: 07/21/16 STATUS: RES OTHR DR: Diana Barragan MD _ SOURCE: URINE SPDESC: ORDERED: Urine Culture, Legion Ur Ag, S.pneumo Ur Ag Procedure Result Reported Site Urine Culture PENDING Legionella Urine Antigen Final 07/22/16- 435 ML Organism 1 Negative Legionella Antigen testing by enzyme immunoassay S.Pneumonia Urine Antigen Final 07/22/16- 435 ML Organism 1 Negative S. pneumo Antigen Antigen testing by enzyme immunoassay * ML - MAIN LAB ([facility]) . END OF REPORT * ML=Testing performed at Main Lab DEPARTMENT OF PATHOLOGY, [address] [place] [address] Cameron Rizo M.D. Director [facility] # [id number] 34 SEE RESULT BELOW Name: SHIN GAMEZ : [address]: Uzma Mathew DO Acct: [id number] Unit: [id number] AGE: 70 Location: [place] [address] Re07/21/16 Dis: 07/24/16 SEX: M Status: DIS IN SPEC: [id number] EFREN: 07/21/16 [facility] DR: Hilario Coppola MD REQ: [id number] RECD: 07/21/16 STATUS: ROC CAI DR: Diana Barragan MD _ SOURCE: BLOOD,VENO SPDESC: ORDERED: Blood Cult COMMENTS: Patient is On Antibiotics? NO Procedure Result Reported Site Aerobic Culture Bottle Final 07/26/16- 1028 ML No Growth Day 5 Anaerobic Culture Bottle Final 07/26/16- 1028 ML No Growth Day 5 * ML - MAIN LAB ([facility]) . END OF REPORT * ML=Testing performed at Main Lab DEPARTMENT OF PATHOLOGY, [address] [place] [id number] Cameron Rizo M.D. Director [facility] # [id number] 35 SEE RESULT BELOW Name: SHANNANSHIN : [address]: Uzma Mathew DO Acct: [id number] Unit: [id number] AGE: 70 Location: [place] [address] Re07/21/16 SEX: M Status: ADM IN SPEC: [id number] EFREN: 07/21/16-1532 [facility] DR: Hilario Coppola MD REQ: [id number] RECD: 07/21/16 STATUS: ROC CAI DR: Diana Barragan MD _ SOURCE: URINE SPDESC: ORDERED: Urine Culture, Legion Ur Ag, S.pneumo Ur Ag Procedure Result Reported Site Urine Culture Final 07/24/16- 0938 ML Organism 1 KLEBSIELLA OXYTOCA [place] Count 25-50,000 (Moderate) CFU/ML Organism 2 ENTEROCOCCUS FAECALIS [place] Count 75-100,000 (Many) CFU/ML 1. KLEBSIELLA OXYTOCA [...] performed at Main Lab DEPARTMENT OF PATHOLOGY, [address] [place] [address] Cameron Rizo M.D. Director [facility] # [id number] Patient: SHIN GAMEZ [id number] (Continued) Specimen: [id number] Collected: 07/21/16-1532 Received: 07/21/16 (Continued) Procedure Result Reported Site Urine Culture [...] These antibiotics are not available in the [facility] Formulary Contact the Microbiology Department for any additional antibiotic reporting. Contact the Microbiology Department for any additional antibiotic reporting. Legionella Urine Antigen Final 07/22/16- 0436 ML Organism 1 Negative Legionella CONTINUED ON NEXT PAGE * ML=Testing performed at Main Lab DEPARTMENT OF PATHOLOGY, [address] [place] [address] Cameron Rizo M.D. Director [facility] # [id number] Patient: SHIN GAMEZ [id number] (Continued) Specimen: [id number] Collected: 07/21/16-1532 Received: 07/21/16 (Continued) Procedure Result Reported Site Legionella Urine Antigen Final (continued) 07/22/16- 435 Antigen testing by enzyme immunoassay S.Pneumonia Urine Antigen Final 07/22/16- 435 ML Organism 1 Negative S. pneumo Antigen Antigen testing by enzyme immunoassay * ML - MAIN LAB ([facility]) . END OF REPORT * ML=Testing performed at Main Lab DEPARTMENT OF PATHOLOGY, [address] [place] [address] Cameron Rizo M.D. Director [facility] # [id number] 36 Consistent with previous results on 05/21/16. 37 [facility] Severe Sepsis and Septic Shock Management Bundle Measure requires all lactic acids initially measuring >2.0 mmol/L be repeated. 38 >100 to <200 pg/mL: likely compensated congestive heart failure (CHF) 200 to 400 pg/mL: likely moderate CHF >400 pg/mL: likely moderate to severe CHF 39 Acute inflammation: >10.00 40 Because ethnic data is not always [...] and in selective patients <6.0%.Please refer to [place] [employer] Diabetic care guidelines for further information. 42 Acute inflammation: >10.00 43 [id number] 44 [id number] 45 [id number] 46 Consistent with previous results on 11/27/15 . 47 Because ethnic data is not always readily [...] 15-29 5 Kidney failure <15 (or dialysis) 48 Because ethnic data is not always readily [...] 15-29 5 Kidney failure <15 (or dialysis) 49 Cancelled. Specimen hemolyzed. Unable to perform test requested. Reorder for specimen recollection. [place]/ED was called for recollect at 1712 on 03/30/16 by [id number] 99th percentile=0.04 ng/mL Troponin results at [facility] and [facility] are not interchangeable. 51 Cancelled. Specimen hemolyzed. Unable to perform test requested. Reorder for specimen recollection. [place] was called for recollect at 1712 on 03/30/16 by [id number] Critical Result LACT:3.2 Called to FRED at: 17:13:11 by:ALEXANDRE Read back by:FRED [facility] Severe Sepsis and Septic Shock Management Bundle Measure requires all lactic acids initially measuring >2.0 mmol/L be repeated. 53 Cancelled. Specimen hemolyzed. Unable to perform test requested. Reorder for specimen recollection. [place]/ED was called for recollect at 1712 on 03/30/16 by [id number] 54 Consistent with previous results on 09-13. 55 Critical Result LACT:2.3 Called to [id number] at: 18:25:15 by:[id number] Read back by:[id number] [facility] Severe Sepsis and Septic Shock Management Bundle Measure requires all lactic acids initially measuring >2.0 mmol/L be repeated. 56 >100 to <200 pg/mL: likely compensated congestive heart failure (CHF) 200 to 400 pg/mL: likely moderate CHF >400 pg/mL: likely moderate to severe CHF 57 Reference Range and Interpretation: TnI (ng/mL) Interpretation Less Than 0.03 ng/mL Not supportive of diagnosis of NE 0.03 - 0.50 ng/mL Indeterminate: suggest serial studies if clinically indicated. Greater than 0.5 ng/mL Consistent with diagnosis of NE 58 Because ethnic data is not always readily [...] 15-29 5 Kidney failure <15 (or dialysis) 59 Normal Range 180 to 914 Indeterminate Range 145 to 180 Deficient Range <145 60 [id number] [facility] 5584 63 Because ethnic data is not always readily [...] 15-29 5 Kidney failure <15 (or dialysis) 64 [facility] 5584 65 [facility] 5584 66 Normal Range 180 to 914 Indeterminate Range 145 to 180 Deficient Range <145 67 [id number] 71 Because ethnic data is not always readily [...] 15-29 5 Kidney failure <15 (or dialysis) 72 [facility] [address] 73 [id number] 77 No bands detected 78 No bands detected 79 Specific serologic response to B. burgdorferi infection [...] screening test (e.g., EIA). Test Performed by: [place] [address] Construction Field Engineer: Hilario Yates II, M.D., Ph.D. 80 >100 to <200 pg/mL: likely compensated congestive heart failure (CHF) 200 to 400 pg/mL: likely moderate CHF >400 pg/mL: likely moderate to severe CHF 81 Because ethnic data is not always readily [...] 15-29 5 Kidney failure <15 (or dialysis) 82 Reference Range and Interpretation: TnI (ng/mL) Interpretation Less Than 0.03 ng/mL Not supportive of diagnosis of NE 0.03 - 0.50 ng/mL Indeterminate: suggest serial studies if clinically indicated. Greater than 0.5 ng/mL Consistent with diagnosis of NE 83 No bands detected 84 No bands detected 85 Specific serologic response to B. burgdorferi infection [...] screening test (e.g., EIA). Test Performed by: [place] [address] Construction Field Engineer: Hilario Yates II, M.D., Ph.D. 86 Because ethnic data is not always readily [...] 15-29 5 Kidney failure <15 (or dialysis) 87 Effective immediately, due to a laboratory mean normal Protime change, the reference range for the INR has changed. 88 Effective immediately, due to a laboratory mean normal Protime change, the reference range for the INR has changed. 89 SEE RESULT BELOW Name: SHIN GAMEZ : [address]: Nate Samayoa III [place] Acct: [id number] Unit: [id number] AGE: 69 Location: [facility] Re10/13/14 SEX: M Status: REG REF SPEC: [id number] EFREN: 10/13/14-1410 [facility] DR: Nate Samayoa III [place] REQ: [id number] RECD: 10/13/14 STATUS: COMP _ SOURCE: URINE SPDESC: ORDERED: Urine Culture Procedure Result Verified Site Urine Culture Final 10/15/14- 1153 ML Mixed jessi; possible contamination. Suggest resubmission. * ML - MAIN LAB ([facility]) . END OF REPORT * ML=Testing performed at Main Lab DEPARTMENT OF PATHOLOGY, [address] [place] [address] Cameron Rizo M.D. Director [facility] # [id number] Please note: Effective March 08, 2014, the reference value for this test has changed due to the validation and activation of a new reagent lot number. 91 Therapeutic target for the treatment of diabetes Mellitus patients is <7% HBA1C, and in selective patients <6.0%.Please refer to [place] [employer] Diabetic care guidelines for further information. 92 Please note: Effective March 08, 2014, the reference value for this test has changed due to the validation and activation of a new reagent lot number. 93 RECEIVED PLAIN CONTAINER ONLY AND PLACED IN RAINBOW WITHIN 2~HOUR WINDOW OF COLLECTION. 94 RUN DATE: 03/15/14 [facility] LAB LIVE PAGE 1 RUN TIME: [address] [place] [address] Specimen Inquiry Name: HANSHIN MCALLISTER : [address]: Lottie Velásquez NP Acct: [id number] Unit: [id number] AGE: 68 Location: [facility] Re03/14/14 SEX: M Status: REG REF SPEC: [id number] EFREN: 03/14/14-[address]: Lottie Velásquez NP REQ: [id number] RECD: 03/14/14 STATUS: RES _ SOURCE: STOOL SPDESC: ORDERED: Hemoccult, Stool Culture, Fecal Lactoferr, C. diff Amp DNA, O P: Giar/Cr COMMENTS: RECEIVED PLAIN CONTAINER ONLY AND PLACED IN RAINBOW WITHIN 2 HOUR WINDOW OF COLLECTION. QUERIES: Provider Requisition # [id number] Procedure Result Verified Site Stool Culture PENDING [...] performed at Main Lab DEPARTMENT OF PATHOLOGY, [facility] [employer] [place], [place] [address] Cameron Rizo M.D. Director [facility] # [id number] RUN DATE: 03/15/14 [facility] LAB LIVE PAGE 2 RUN TIME: [address] [employer] [place], [place] [address] Specimen Inquiry Patient: SHIN GAMEZ [id number] (Continued) Specimen: [id number] Collected: 03/14/14-1429 Received: 03/14/14 (Continued) Procedure Result Verified Site C. difficile Amplified DNA Final (continued) 03/15/14- 1505 up to 50% and higher have been reported in infants and rates up to 32% in cystic fibrosis patients. Fecal Lactoferrin (Stool WBC) Final 03/15/14- 150 ML Fecal Lactoferrin Positive by Immunoassay TEST [...] is requested. Contact the Microbiology Department at [phone]. TEST LIMITATIONS: As with all diagnostic procedures, [...] performed at Main Lab DEPARTMENT OF PATHOLOGY, [facility] [employer] [place] [address] Camreon Rizo M.D. Director [facility] # [id number] RUN DATE: 03/15/14 [facility] LAB LIVE PAGE 3 RUN TIME: [address] [facility] [employer] [address], [place] [address] Specimen Inquiry Patient: SHIN GAMEZ [id number] (Continued) Specimen: [id number] Collected: 03/14/14-1429 Received: 03/14/14-1453 (Continued) Procedure Result Verified Site O P: Giardia/Cryptospor Screen Final (continued) 03/15/14- 1203 it is recommended that three specimens be [...] performed at Main Lab DEPARTMENT OF PATHOLOGY, [address] [place] [address] Cameron Rizo M.D. Director [facility] # [id number] RUN DATE: 03/15/14 [facility] LAB LIVE PAGE 1 RUN TIME: [address] [place] [address] Specimen Inquiry Name: SHIN GAMEZ : [address]: Lottie Velásquez NP Acct: [id number] Unit: [id number] AGE: 68 Location: [facility] Re03/14/14 SEX: M Status: REG REF SPEC: [id number] EFREN: 03/14/14-[address]: Lottie Velásquez NP REQ: [id number] RECD: 03/14/14799 STATUS: RES _ SOURCE: STOOL SPDESC: ORDERED: Hemoccult, Stool Culture, Fecal Lactoferr, C. diff Amp DNA, O P: An/Giovanni COMMENTS: RECEIVED PLAIN CONTAINER ONLY AND PLACED IN RAINBOW WITHIN 2 HOUR WINDOW OF COLLECTION. QUERIES: Provider Requisition # [id number] Procedure Result Verified Site Stool Culture PENDING [...] performed at Main Lab DEPARTMENT OF PATHOLOGY, [facility] [employer] [place] [address] Cameron Rizo M.D. Director [facility] # [id number] RUN DATE: 03/15/14 [facility] LAB LIVE PAGE 2 RUN TIME: [address] [facility] [employer], [place] [address] Specimen Inquiry Patient: SHIN GAMEZ [id number] (Continued) Specimen: [id number] Collected: 03/14/14-1429 Received: 03/14/14-1453 (Continued) Procedure Result [...] is requested. Contact the Microbiology Department at [phone]. TEST LIMITATIONS: As with all diagnostic procedures, [...] performed at Main Lab DEPARTMENT OF PATHOLOGY, [facility] [employer] [place] [address] Cameron Rizo M.D. Director [facility] # [id number] 96 RUN DATE: 03/15/14 [facility] LAB LIVE PAGE 1 RUN TIME: [address] [facility] [employer], [place] [address] Specimen Inquiry Name: SHIN GAMEZ : [address]: Lottie Velásquez NP Acct: [id number] Unit: [id number] AGE: 68 Location: [facility] Re03/14/14 SEX: M Status: REG REF SPEC: [id number] EFREN: 03/14/14-0 [facility] DR: Lottie Velásquez NP REQ: [id number] RECD: 03/14/14 STATUS: RES _ SOURCE: STOOL SPDESC: ORDERED: Hemoccult, Stool Culture, Fecal Lactoferr, C. diff Amp DNA, O P: Giar/Cr COMMENTS: RECEIVED PLAIN CONTAINER ONLY AND PLACED IN RAINBOW WITHIN 2 HOUR WINDOW OF COLLECTION. QUERIES: Provider Requisition # [id number] Procedure Result Verified Site Stool Culture PENDING [...] performed at Main Lab DEPARTMENT OF PATHOLOGY, [facility] [employer] [place], [place] [address] Cameron Rizo M.D. Director [facility] # [id number] RUN DATE: 03/15/14 [facility] LAB LIVE PAGE 2 RUN TIME: [address] [place] [address] Specimen Inquiry Patient: SHIN GAMEZ [id number] (Continued) Specimen: [id number] Collected: 03/14/14 Received: 03/14/14 (Continued) Procedure Result Verified Site O P: Giardia/Cryptospor Screen Final (continued) 03/15/14- 1203 Giardia and cryptosporidium antigen testing performed by enzyme immunoassay. If patient is immunocompromised or has traveled to or is from a developing country, a full ova and parasite exam with microscopic (OPMIC) is recommended. All samples will be held one month in case full ova and parasite testing is requested. Contact the Microbiology Department at [phone]. TEST LIMITATIONS: As with all diagnostic procedures, [...] performed at Main Lab DEPARTMENT OF PATHOLOGY, [facility] [employer] [place] [address] Cameron Rizo M.D. Director [facility] # [id number] 97 RUN DATE: 03/16/14 [facility] LAB LIVE PAGE 1 RUN TIME: [address] [facility] [employer] [address], [place] [address] Specimen Inquiry Name: SHIN GAMEZ : [address]: Lottie Velásquez NP Acct: [id number] Unit: [id number] AGE: 68 Location: [facility] Re03/14/14 SEX: M Status: REG REF SPEC: [id number] EFREN: 03/14/14 [facility] DR: Lottie Velásquez NP REQ: [id number] RECD: 03/14/14 STATUS: COMP _ SOURCE: STOOL SPDESC: ORDERED: Hemoccult, Stool Culture, Fecal Lactoferr, C. diff Amp DNA, O P: An/Giovanni COMMENTS: RECEIVED PLAIN CONTAINER ONLY AND PLACED IN RAINBOW WITHIN 2 HOUR WINDOW OF COLLECTION. QUERIES: Provider Requisition # [id number] Procedure Result Verified Site Stool Culture Final [...] performed at Main Lab DEPARTMENT OF PATHOLOGY, [facility] [employer] [place], [place] [address] Cameron Rizo M.D. Director [facility] # [id number] RUN DATE: 03/16/14 [facility] LAB LIVE PAGE 2 RUN TIME: [address] [facility] [employer] [place], [place] [address] Specimen Inquiry Patient: SHIN GAMEZ [id number] (Continued) Specimen: [id number] Collected: 03/14/14 Received: 03/14/14-1453 (Continued) Procedure Result Verified Site Shiga Toxin 1 2 Final (continued) 03/15/14- 1158 Immunochromatographic Assay C. difficile Amplified DNA Final [...] performed at Main Lab DEPARTMENT OF PATHOLOGY, [facility] [employer] [place], [place] [address] Cameron Rizo M.D. Director [facility] # [id number] RUN DATE: 03/16/14 [facility] LAB LIVE PAGE 3 RUN TIME: [address] [place] [address] Specimen Inquiry Patient: SHIN GAMEZ [id number] (Continued) Specimen: [id number] Collected: 03/14/14 Received: 03/14/14 (Continued) Procedure Result [...] is requested. Contact the Microbiology Department at [phone]. TEST LIMITATIONS: As with all diagnostic procedures, [...] performed at Main Lab DEPARTMENT OF PATHOLOGY, [facility] [employer] [place] [address] Cameron Rizo M.D. Director [facility] # [id number] 98 RUN DATE: 03/14/14 [facility] LAB LIVE PAGE 1 RUN TIME: [address] [facility] [employer] [place] [place], [place] [address] Specimen Inquiry Name: SHIN GAMEZ : [address]: Lottie Velásquez NP Acct: [id number] Unit: [id number] AGE: 68 Location: [facility] Re03/14/14 SEX: M Status: REG REF SPEC: [id number] EFREN: 03/14/14 [facility] DR: Lottie Velásquez NP REQ: [id number] RECD: 03/14/14 STATUS: RES _ SOURCE: STOOL SPDESC: ORDERED: Hemoccult, Stool Culture, Fecal Lactoferr, C. diff Amp DNA, O P: Giar/Cr COMMENTS: RECEIVED PLAIN CONTAINER ONLY AND PLACED IN RAINBOW WITHIN 2 HOUR WINDOW OF COLLECTION. QUERIES: Provider Requisition # [id number] Procedure Result Verified Site Stool Culture PENDING [...] performed at Main Lab DEPARTMENT OF PATHOLOGY, [address] [place] [address] Cameron Rizo M.D. Director [facility] # [id number] 99 Because ethnic data is not always readily [...] 15-29 5 Kidney failure <15 (or dialysis) 100 Please note: Effective March 08, 2014, the reference value for this test has changed due to the validation and activation of a new reagent lot number. 101 RUN DATE: 02/28/14 [facility] LAB LIVE PAGE 1 RUN TIME: [address] [place] [address] Specimen Inquiry Name: SHIN GAMEZ : [address]: Jonathan Quick MD Acct: [id number] Unit: [id number] AGE: 68 Location: ENDO Re02/27/14 SEX: M Status: REG REF SPEC: [id number] EFREN: 02/27/14-1211 [facility] DR: Jonathan Quick MD REQ: [id number] RECD: 02/27/14 STATUS: ROC CAI DR: Diana Barragan MD _ SOURCE: GAS ANTRUM SPDESC: ORDERED: Clotest Procedure Result Verified Site Clotest Final 02/28/14- 0744 ML Clotest Negative END OF REPORT * ML=Testing performed at Main Lab DEPARTMENT OF PATHOLOGY, [address] [place] [address] Cameron Rizo M.D. Director [facility] # [id number] 102 RUN DATE: 03/01/14 [facility] LAB LIVE PAGE 1 RUN TIME: [address] [place] [address] Specimen Inquiry Name: SHIN GAMEZ : [address]: Jonathan Quick MD Acct: [id number] Unit: [id number] AGE: 68 Location: ENDO Re02/27/14 SEX: M Status: REG REF SPEC: [id number] EFREN: 02/27/14-1213 [facility] DR: Jonathan Quick MD REQ: [id number] RECD: 02/27/14 STATUS: RAYMUNDO CAI DR: Diana [...] performed at Main Lab DEPARTMENT OF PATHOLOGY, [facility] [employer] [place], [place] [address] Cameron Rizo M.D. Director [facility] # [id number] 103 Because ethnic data is not always readily [...] 15-29 5 Kidney failure <15 (or dialysis) 104 RUN DATE: 12/09/13 [facility] LAB LIVE PAGE 1 RUN TIME: [address] [facility] [employer] [place] [place] [address], [place] [address] Specimen Inquiry Name: SHIN GAMEZ : [address]: Lottie Velásquez NP Acct: [id number] Unit: [id number] AGE: 68 Location: [facility] Re12/07/13 SEX: M Status: REG REF SPEC: [id number] EFREN: 12/07/13-999 [facility] DR: Anthony Kingsley MD REQ: [id number] RECD: 12/07/13 STATUS: ROC CAI DR: Lottie Velásquez [place] _ SOURCE: URINE SPDESC: ORDERED: Urine Culture Procedure Result Verified Site Urine Culture Final 12/09/13- 0925 ML No Growth Day 2 (<1,000 CFU/mL) END OF REPORT * ML=Testing performed at Main Lab DEPARTMENT OF PATHOLOGY, [address] [place] [address] Cameron Rizo M.D. Director [facility] # [id number] 105 Therapeutic target for the treatment of diabetes Mellitus patients is <7% HBA1C, and in selective patients <6.0%.Please refer to [place] [employer] Diabetic care guidelines for further information. 106 Test Performed by: [place] [address] Construction Field Engineer: John Espino M.D. 107 Acute inflammation: >10.00 108 RUN DATE: 11/25/13 [facility] LAB LIVE PAGE 1 RUN TIME: 1021 [address] [place], [place] [address] Specimen Inquiry Name: SHIN GAMEZ : [address]: Lottie Velásquez NP Acct: [id number] Unit: [id number] AGE: 68 Location: [facility] Re11/23/13 SEX: M Status: REG REF SPEC: [id number] EFREN: 11/23/13-[address]: Lottie Velásquez NP REQ: [id number] RECD: 10/15/14-1811 STATUS: COMP _ SOURCE: URINE SPDESC: ORDERED: Urine Culture QUERIES: [employer] Number [id number] Procedure Result Verified Site Urine Culture Final 11/25/13- 1021 ML Organism 1 PSEUDOMONAS AERUGINOSA [place] Count >100,000 (Many) CFU/ML Organism 2 ACINETOBACTER [...] performed at Main Lab DEPARTMENT OF PATHOLOGY, [facility] [employer] [place], [place] [address] Cameron Rizo M.D. Director [facility] # [id number] RUN DATE: 11/25/13 [facility] LAB LIVE PAGE 2 RUN TIME: [address] [facility] [place], [place] [address] Specimen Inquiry Patient: SHIN GAMEZ [id number] (Continued) Specimen: [id number] Collected: 11/23/13120 Received: 11/23/13 (Continued) Procedure Result Verified Site Urine Culture Final (continued) 11/25/13- 1021 2. ACINETOBACTER LWOFFI (continued) M.I.C. RX --------- ------ Ciprofloxacin <=0.25 S Gentamicin <=1 S Levofloxacin 0.25 S Meropenem 0.5 S Nitrofurantoin >=512 R Tetracycline 4 S Pipercillin/Tazobactam 32 I Trimethoprim/Sulfamethoxazole <=20 S Amoxicillin/Clavulanic Acid 8 S Aztreonam 32 R Contact the Microbiology Department for any additional antibiotic reporting. END OF REPORT * ML=Testing performed at Main Lab DEPARTMENT OF PATHOLOGY, [facility] [employer] [place], [place] [address] Cameron Rizo M.D. Director [facility] # [id number] 109 RUN DATE: 11/03/13 [facility] LAB LIVE PAGE 1 RUN TIME: [address] [facility] [employer] [place] [place] [address], [place] [address] Specimen Inquiry Name: SHIN GAMEZ : [address]: Lottie Velásquez NP Acct: [id number] Unit: [id number] AGE: 68 Location: [facility] Re11/01/13 SEX: M Status: REG REF SPEC: [id number] EFREN: 11/01/13-1147 [facility] DR: Lottie Velásquez NP REQ: [id number] RECD: 11/01/13 STATUS: COMP _ SOURCE: URINE SPDESC: ORDERED: Urine Culture QUERIES: [employer] Number [id number] Procedure Result Verified Site Urine Culture Final 11/03/13- 0850 ML Organism 1 PROTEUS MIRABILIS/PENNERI [place] Count >100,000 (Many) CFU/ML Organism 2 KLEBSIELLA OXYTOCA [place] Count >100,000 (Many) CFU/ML 1. PROTEUS MIRABILIS/PENNERI [...] performed at Main Lab DEPARTMENT OF PATHOLOGY, [address] [place] [address] Cameron Rizo M.D. Director [facility] # [id number] RUN DATE: 11/03/13 [facility] LAB LIVE PAGE 2 RUN TIME: [address] [place] [address] Specimen Inquiry Patient: SHIN GAMEZ [id number] (Continued) Specimen: [id number] Collected: 11/01/13-114 Received: 11/01/13-1344 (Continued) Procedure Result Verified Site Urine Culture Final (continued) 11/03/13- 0850 2. KLEBSIELLA OXYTOCA M.I.C. RX --------- ------ [...] performed at Main Lab DEPARTMENT OF PATHOLOGY, [address] [place] [address] Cameron Rizo M.D. Director [facility] # [id number] 110 Serologic response to B. burgdorferi infection is not detected, but cannot rule out early infection during which low or undetectable antibody levels to B. burgdorferi may be present. If clinically indicated, a new serum specimen should be submitted in 7-14 days. Test Performed by: [address] [address] Construction Field Engineer: Jeremiah West III, M.D. 111 Acute inflammation: >10.00 112 Because ethnic data is not always readily [...] 15-29 5 Kidney failure <15 (or dialysis) 113 Normal Range 180 to 914 Indeterminate Range 145 to 180 Deficient Range <145 114 Normal Range 180 to 914 Indeterminate Range 145 to 180 Deficient Range <145 115 Test Performed by: [place] [address] Construction Field Engineer: Jeremiah West III, M.D. 116 Small abnormality in gamma fraction. See Immunofixation. Test Performed by: [place] [address] Construction Field Engineer: Jeremiah West III, M.D. 117 Small monoclonal IgM lambda within the gamma fraction. Suggest repeat testing in 6-12 months if clinically indicated. Test Performed by: [place] [address] Construction Field Engineer: Jeremiah West III, M.D. 118 Because ethnic data is not always readily [...] 15-29 5 Kidney failure <15 (or dialysis) 119 Therapeutic target for the treatment of diabetes Mellitus patients is <7% HBA1C, and in selective patients <6.0%.Please refer to [place] [employer] Diabetic care guidelines for further information. 120 Warning: A positive result is not useful for establishing a diagnosis of syphilis. In most situations, such a result may reflect a prior treated infection; a negative result can exclude a diagnosis of syphilis except for incubating or early primary disease. 121 NO 122 Test Performed by: [facility] [address] [place] [address] Construction Field Engineer: Jeremiah West III, M.D. [address] 124 Test Performed by: [facility] [address] [place] [address] Construction Field Engineer: Jeremiah West III, M.D. 125 Desirable <150 Borderline high 150-199 High 200-499 Very High >500 126 Desirable <200 Borderline high 200-239 High >239 127 Low <40 Desirable: 40-60 High: >60 128 Desirable <100 Near Optimal 100-129 Borderline high 130-159 High 160-189 Very High >189 129 Because ethnic data is not always readily [...] 15-29 5 Kidney failure <15 (or dialysis) 130 Please note the change in the INR reference range effective 12. 131 Please note the change in the INR reference range effective 12. 132 Please note the change in the INR reference range effective 12. 133 Please note the change in the INR reference range effective 12. Procedures Date Code Description Status 06/09/2018 35994 Anticoagulant MGMT For Patient Taking Warfarin, Inc Review Completed & Intr 05/20/2018 96776 Anticoagulant MGMT For Patient Taking Warfarin, Inc Review Completed & Intr 05/14/2018 49899 Nebulizer Treatment Completed 05/06/2018 36695 Anticoagulant MGMT For Patient Taking Warfarin, Inc Review Completed & Intr 04/29/2018 15183 Anticoagulant MGMT For Patient Taking Warfarin, Inc Review Completed & Intr 04/21/2018 32009 Anticoagulant MGMT For Patient Taking Warfarin, Inc Review Completed & Intr 04/06/2018 15565 Anticoagulant MGMT For Patient Taking Warfarin, Inc Review Completed & Intr 03/29/2018 19209 Anticoagulant MGMT For Patient Taking Warfarin, Inc Review Completed & Intr 03/24/2018 45507 Anticoagulant MGMT For Patient Taking Warfarin, Inc Review Completed & Intr 03/17/2018 45365 Anticoagulant MGMT For Patient Taking Warfarin, Inc Review Completed & Intr 03/11/2018 95128 Anticoagulant MGMT For Patient Taking Warfarin, Inc Review Completed & Intr 03/03/2018 02401 Anticoagulant MGMT For Patient Taking Warfarin, Inc Review Completed & Intr 01/27/2018 75393 Anticoagulant MGMT For Patient Taking Warfarin, Inc Review Completed & Intr 12/30/2017 29582 Anticoagulant MGMT For Patient Taking Warfarin, Inc Review Completed & Intr 12/02/2017 85840 Anticoagulant MGMT For Patient Taking Warfarin, Inc Review Completed & Intr 11/04/2017 20642 Anticoagulant MGMT For Patient Taking Warfarin, Inc Review Completed & Intr 10/29/2017 71880 Anticoagulant MGMT For Patient Taking Warfarin, Inc Review Completed & Intr 10/14/2017 16689 Anticoagulant MGMT For Patient Taking Warfarin, Inc Review Completed & Intr 10/07/2017 69596 Anticoagulant MGMT For Patient Taking Warfarin, Inc Review Completed & Intr 09/30/2017 21301 Anticoagulant MGMT For Patient Taking Warfarin, Inc Review Completed & Intr 08/28/2017 56940 Anticoagulant MGMT For Patient Taking Warfarin, Inc Review Completed & Intr 09/14/2015 25233 EKG, at Least 12 Leads w/Interpretation and Report Completed 08/16/2015 36940 Spirometry Completed 06/20/2013 34807 Audiometric Screening Test, Pure Tone, Air Only Completed Encounters Type Date Location Provider Dx Diagnosis Office Visit 06/12/2018 Main Office Diana Barragan, S80.261A Insect bite 10:45a Tonja Corral (nonvenomous), right knee, initial encounter Office Visit 05/14/2018 Main Office Joon Fields J45.901 Unspecified asthma 2:00p with (acute) exacerbation J06.9 Acute upper respiratory infection, unspecified Office Visit 03/29/2018 3:45p Main Office Joon Fields J18.9 Pneumonia, unspecified organism Office Visit 03/17/2018 10:30a Main Office Enrique Cabrear44.1 Chronic obstructive MD pulmonary disease w (acute) exacerbation M10.9 Gout, unspecified I48.2 Chronic atrial fibrillation Office Visit 01/12/2018 3:30p Main Office Enrique Lazo06.9 Acute upper [place] respiratory infection, unspecified Office Visit 11/09/2017 10:30a Main Office Joon Trevino.1 Chronic obstructive MD Diamond pulmonary disease w (acute) exacerbation Z23 Encounter for immunization Office Visit 10/26/2017 3:30p Main Office Enrique Escobedo44.0 Chronic obstructive [place] pulmon disease w acute lower resp infct K59.00 Constipation, unspecified Office Visit 10/16/2017 3:30p Main Office Enrique Escobedo06.9 Acute upper [place] respiratory infection, unspecified K59.00 Constipation, unspecified Office Visit 08/11/2017 11:45a Main Office Joon Fields, H00.014 Hordeolum externum left upper eyelid Office Visit 07/03/2017 10:00a Main Office Joon Fields, B36.0 Pityriasis versmono J06.9 Acute upper respiratory infection, unspecified Office Visit 05/20/2017 11:00a Main Office Joon Fields J44.0 Chronic MD obstructive pulmon disease w acute lower resp infct I48.91 Unspecified atrial fibrillation Office Visit 05/06/2017 10:30a Main Office Joon Fields J44.0 Chronic MD obstructive pulmon disease w acute lower resp infct I48.91 Unspecified atrial fibrillation Office Visit 01/14/2017 5:00p Main Office Joon Fields R21 Rash and other MD nonspecific skin eruption Office Visit 11/24/2016 4:45p Main Office Enrique Duarte06.9 Acute upper FLOOR CARE TECHNICIAN-C respiratory infection, unspecified Office Visit 07/28/2016 4:15p Main Office Enrique Duarte44.9 Chronic FLOOR CARE TECHNICIAN-C obstructive pulmonary disease, unspecified L21.9 Seborrheic dermatitis, unspecified Office Visit 05/21/2016 10:00a Main Office Joon Fields, R73.9 Hyperglycemia, unspecified Office Visit 04/10/2016 11:15a Main Office Junior Zhang, J06.9 Acute upper FLOOR CARE TECHNICIAN-C respiratory infection, unspecified J45.901 Unspecified asthma with (acute) exacerbation I48.91 Unspecified atrial fibrillation Office Visit 01/30/2016 11:30a Main Office Joon Fields, J32.9 Chronic sinusitis, unspecified Z23 Encounter for immunization Office Visit 12/21/2015 11:30a Main Office Nate Jeans III, G40.89 Other seizures FLOOR CARE TECHNICIAN-C Office Visit 12/04/2015 10:15a Main Office Nate Griffithstings III, G40.89 Other seizures FLOOR CARE TECHNICIAN-C Office Visit 09/14/2015 4:00p Main Office Junior Zhang, R49.0 Dysphonia FLOOR CARE TECHNICIAN-C R53.83 Other fatigue Office Visit 08/17/2015 2:45p Main Office Junior Velez Z01.818 Encounter for other Storm, FLOOR CARE TECHNICIAN-C preprocedural examination H26.9 Unspecified cataract Office Visit 08/16/2015 9:45a Main Office Junior Velez J44.9 Chronic obstructive Storm, FLOOR CARE TECHNICIAN-C pulmonary disease, unspecified G47.62 Sleep related leg cramps Office Visit 07/26/2015 11:45a Main Office Junior Velez J44.9 Chronic obstructive Storm, FLOOR CARE TECHNICIAN-C pulmonary disease, unspecified I48.91 Unspecified atrial fibrillation Office Visit 06/21/2015 10:30a Main Office Diana Barragan, E78.2 Mixed hyperlipidemia M.Odette., R.D. 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 collapse M62.81 Muscle weakness (generalized) S20.161A Insect bite (nonvenomous) of breast, right breast, init J20.9 Acute bronchitis, unspecified Office Visit 02/03/2015 10:30a Main Office Junior Velez S50.862A Insect bite Storm, FLOOR CARE TECHNICIAN-C (nonvenomous) of left forearm, initial encounter Office Visit 01/01/2015 11:15a Main Office Diana I48.91 Unspecified atrial jessica Barragan M.D., R.DRk R21 Rash and other nonspecific skin eruption Office Visit 12/28/2014 10:45a Main Office Joon L28.2 Other prurigo MD Diamond Office Visit 10/13/2014 2:00p Main Office Nate Samayoa 599.0 UTI Urinary Tract III, FLOOR CARE TECHNICIAN-C Infection Site Not Spec Office Visit 03/14/2014 12:00p Main Office Lottie Velásquez, 787.91 Diarrhea FLOOR CARE TECHNICIAN-C Office Visit 02/06/2014 10:30a Main Office Diana Barragan, V58.61 Anticoagulants Long Ellis, R.D. Term (Current) Use Encounter 790.21 Impaired Fasting Glucose 465.9 URI Upper Respiratory Infections Acute Unspec Sites Office Visit 12/28/2013 11:15a Main Office Diana Barragan, 356.8 Neuropathy Other MRogelio, R.D. Spec Idiopathic Peripheral 790.21 Impaired Fasting Glucose 599.0 UTI Urinary Tract Infection Site Not Spec 285.9 Anemia Unspec 427.31 Atrial Fibrillation V58.61 Anticoagulants [facility] (Current) Use Encounter Office Visit 11/28/2013 9:30a Main Office Lottie Velásquez, 780.79 Malaise And FLOOR CARE TECHNICIAN-C Fatigue Other 285.9 Anemia Unspec 599.0 UTI Urinary Tract Infection Site Not Spec Office Visit 11/23/2013 10:30a Main Office Lottie Velásquez, 728.87 Muscle Weakness FLOOR CARE TECHNICIAN-C Generalized 719.69 Joint Symptoms Other Multiple Sites 780.79 Malaise And Fatigue Other 790.6 Abnormal Blood Chemistry Other 356.8 Neuropathy Other Spec Idiopathic Peripheral 427.31 Atrial Fibrillation V58.61 Anticoagulants Senior Java Ui Developer (Current) Use Encounter 599.0 UTI Urinary Tract Infection Site Not Spec Office Visit 11/01/2013 10:45a Main Office Lottie Velásquez, 599.0 UTI Urinary Tract FLOOR CARE TECHNICIAN-C Infection Site Not Spec 719.69 Joint Symptoms Other Multiple Sites 728.87 Muscle Weakness Generalized V12.59 History Personal Circulatory Diseases Other Office Visit 07/13/2013 10:45a Main Office Diana Barragan M.D., 729.5 Pain In Limb R.D. 782.1 Rash & Other Nonspec Skin Eruption 389.9 Hearing Loss Unspec Office Visit 06/20/2013 1:30p Main Office Lottie Velásquez, 389.9 Hearing Loss FLOOR CARE TECHNICIAN-C Unspec Office Visit 05/23/2013 2:30p Main Office Diana Barragan, 724.02 Spinal Stenosis M.D., R.D. Lumbar Region 729.5 Pain In Limb 782.1 Rash & Other Nonspec Skin Eruption Office Visit 05/05/2013 11:00a Main Office Shawnti R. 693.0 Dermatitis Due To Storm, FLOOR CARE TECHNICIAN-C Drugs & Medicines Office Visit 04/21/2013 2:15p Main Office Shawnti R. 693.0 Dermatitis Due To Storm, FLOOR CARE TECHNICIAN-C Drugs & Medicines Office Visit 04/11/2013 11:00a Main Office Diana Barragan, 427.31 Atrial Fibrillation M.D., R.D. 724.02 Spinal Stenosis Lumbar Region 728.87 Muscle Weakness Generalized 491.8 Bronchitis Other Chronic 782.1 Rash & Other Nonspec Skin Eruption Office Visit 01/26/2013 10:00a Main Office Lottie Velásquez, 709.9 Skin & Subcutaneous FLOOR CARE TECHNICIAN-C Tissue Disorders Unspec Office Visit 01/19/2013 3:00p Main Office Lottie Velásquez 709.9 Skin & Subcutaneous FLOOR CARE TECHNICIAN-C Tissue Disorders Unspec Office Visit 01/17/2013 10:00a Main Office Lottie Velásquez 709.9 Skin & Subcutaneous FLOOR CARE TECHNICIAN-C Tissue Disorders Unspec Office Visit 01/10/2013 11:00a Main Office Diana Barragan 427.31 Atrial Fibrillation M.D., R.D. V12.59 History Personal Circulatory Diseases Other 724.02 Spinal Stenosis Lumbar Region V10.51 History Personal Malignant Neoplasm Bladder Office Visit 10/06/2012 11:15a Main Office Diana Barragan 427.31 Atrial Fibrillation M.D., R.D. 274.9 Gout Unspec 272.2 Hyperlipidemia Mixed V12.59 History Personal Circulatory Diseases Other V10.51 History Personal Malignant Neoplasm Bladder Plan of Treatment Future Appointment(s):07/07/2018 11:00 am - [facility] Office Services at [facility]/12/2018 - Diana Barragan M.D., R.FernandoS80.261A Insect bite (nonvenomous) , right knee, initial encounterRecommendations:You received a one time dose of doxycycline in the office today. It is intended to prevent Lyme disease after a tick bite. However, it does not always work. Keep monitoring for symptoms of Lyme for the next few weeks. Please call the office if you develop fever, aches, joint pain or swelling or other new symptoms.
[2018-07-04 16:03] VITALS: BP 136/78
--- NOTE | 2018-07-04 16:33 | ED ---
Skin Complaint - HPI Summary HPI Summary: Patient is a 72-year-old male who presents to the ED with concern for a left lower abdomen tick bite. He states he was able to remove the tick, however believes the head is still attached. There is a small erythematous area around the area which he believes to be infected. There is a small area of ecchymosis just around the tick area with surrounding erythema which does not appear to be infected. There is no drainage to the area. There is no obvious signs that the tick is still attached, however patient states when he pulled the tick off, he believes the mouth was still intact in the skin. No history of Lyme disease. He states he has had several ticks that has pulled off of himself, but denies the area becoming red in the past. - History of Current Complaint Chief Complaint: EDAnimalBite Time Seen by Provider: 07/04/18 15:30 Stated Complaint: "TICK BITE PER PT" Hx Obtained From: Patient Onset/Duration: Started Hours Ago Skin Exposure Onset/Duration: Hours Ago Timing: Constant Onset Severity: Moderate Current Severity: Moderate Pain Intensity: 0 Pain Scale Used: 0-10 Numeric Skin Location: Abdomen Aggravating Symptom(s): Nothing Alleviating Symptom(s): Nothing - Additional Pertinent History Primary Care Physician: [id number] - Allergy/Home Medications Allergies/Adverse Reactions: Allergies Allergy/AdvReac Type Severity Reaction Status Date / Time Iodinated Contrast- Oral and Allergy Anaphylatic Verified 07/04/18 15:34 IV Dye Shock pregabalin [From Lyrica] Allergy See Comment Verified 07/04/18 15:34 PMH/Surg Hx/FS Hx/Imm Hx Previously Healthy: Yes Endocrine/Hematology History: Denies: Hx Diabetes Cardiovascular History: Reports: Hx Atrial Fibrillation, Hx Hypertension - ON MEDS, Other Cardiovascular Problems/Disorders - Afib Denies: Hx Pacemaker/ICD Respiratory History: Reports: Hx Chronic Bronchitis, Other Respiratory Problems/ Disorders - sinusitis Denies: Hx Asthma History: Reports: Other Problems/Disorders - urostomy, bladder cancer and bladder removal Denies: Hx Dialysis, Hx Renal Disease Musculoskeletal History: Reports: Hx Arthritis, Hx Rheumatoid Arthritis - IN HANDS Sensory History: Reports: Hx Cataracts - removed, Hx Contacts or Glasses Denies: Hx Hearing Aid Opthamlomology History: Reports: Hx Cataracts - removed, Hx Contacts or Glasses Neurological History: Reports: Hx CVA - 2010 - affected left side of body, 2012 - affected right side of body Psychiatric History: Denies: Hx Panic Disorder - Cancer History Cancer Type, Location and Year: PROSTATE CA, Bladder CA Hx Chemotherapy: No Hx Radiation Therapy: No - Surgical History Surgery Procedure, Year, and Place: FULL BLADDER/PROSTATE REMOVAL ;. Cataracts removed; Hx Anesthesia Reactions: No - Immunization History Hx Pertussis Vaccination: No Immunizations Up to Date: Yes Infectious Disease History: No Infectious Disease History: Denies: Traveled Outside the [place] in Last 30 Days - Family History Known Family History: Positive: Other - Cancer - both parents and brother - Social History Occupation: Unemployed Lives: With Family Alcohol Use: Daily Alcohol Amount: "one to two a night" Substance Use Type: Reports: None Smoking Status (MU): Former Smoker Type: Cigarettes Amount Used/How Often: 1.5-2 PPD Have You Smoked in the Last Year: No Review of Systems Constitutional: Negative Negative: Fever, Chills, Fatigue, Skin Diaphoresis Negative: Palpitations, Chest Pain Negative: Shortness Of Breath, Cough Genitourinary: Negative Positive: no symptoms reported, see HPI Negative: Arthralgia, Myalgia Skin: Negative All Other Systems Reviewed And Are Negative: Yes Physical Exam Triage Information Reviewed: Yes Vital Signs On Initial Exam: Initial Vitals Temp Pulse Resp BP Pulse Ox 98.7 F 87 18 141/76 98 07/04/18 15:08 07/04/18 15:08 07/04/18 15:08 07/04/18 15:08 07/04/18 15:08 Vital Signs Reviewed: Yes Appearance: Positive: Well-Appearing Skin: Positive: Skin Color Reflects Adequate Perfusion, Other - small .5cm ecchymotic area to the left lower abdomen with small amount of surrounding erythema, localized reaction and does not appear to be an infection. Head/Face: Positive: Normal Head/Face Inspection Eyes: Positive: EOMI, Conjunctiva Clear Neck: Positive: No Lymphadenopathy Respiratory/Lung Sounds: Positive: Clear to Auscultation, Breath Sounds Present Cardiovascular: Positive: RRR, Pulses are Symmetrical in both Upper and Lower Extremities Musculoskeletal: Positive: Strength/ROM Intact Neurological: Positive: Speech Normal Psychiatric: Positive: Affect/Mood Appropriate AVPU Assessment: Alert Diagnostics - Vital Signs Vital Signs Temp Pulse Resp BP Pulse Ox 07/04/18 16:03 97.9 F 84 16 136/78 98 07/04/18 15:08 98.7 F 87 18 141/76 98 - Laboratory Lab Statement: Any lab studies that have been ordered have been reviewed, and results considered in the medical decision making process. Course/Dx - Course Course Of Treatment: During the course of treatment, the patient is evaluated for a tick bite to the left lower abdomen. There is a small amount of ecchymosis around the tick bite and erythema around that. This appears to be a localized reaction and no infection. Patient states the tick was attached for less than 24 hours and the tick was very small. However he did not bring the tick in to show provider. For these reasons, prophylactic treatment would not be initiated at this time as tick was not attached for 48 hours. Patient is encouraged ice to the area for comfort and Tylenol. He understands if a larger erythematous area occurs or he develops any fevers or worsening conditions, he will return to the ED immediately. - Diagnoses Provider Diagnoses: Tick bite Discharge - Sign-Out/Discharge Documenting (check all that apply): Patient Departure Patient Received Moderate/Deep Sedation with Procedure: No - Discharge Plan Condition: Stable Disposition: HOME Patient Education Materials: Tick Bite (ED) Referrals: Diana Killian MD [Primary Care Provider] - - Billing Disposition and Condition Condition: STABLE Disposition: Home
== END 2018-07-04 16:03 | disposition home or self-care (01) ==
LOC: ED 15:02
DX: S30.861A Insect bite (nonvenomous) of abdominal wall, initial encounter (principal); W57.XXXA Bitten or stung by nonvenomous insect and other nonvenomous arthropods, initial encounter; Y92.9 Unspecified place or not applicable; I10 Essential (primary) hypertension; M06.9 Rheumatoid arthritis, unspecified; Z85.46 Personal history of malignant neoplasm of prostate; Z85.51 Personal history of malignant neoplasm of bladder; Z86.73 Personal history of transient ischemic attack (TIA), and cerebral infarction without residual deficits; Z88.8 Allergy status to other drugs, medicaments and biological substances; Z91.041 Radiographic dye allergy status; Z87.891 Personal history of nicotine dependence
CPT/HCPCS: 99281

== ENCOUNTER 2018-09-13 13:40 | Emergency (ER) | payer MEDICARE, OTHER ==
--- NOTE | 2018-09-13 14:50 | ED ---
Complex/Multi-Sys Presentation - HPI Summary HPI Summary: This patient is a 72-year-old male with history of A. fib, bladder cancer with urostomy presenting with 4 days of weakness, unsteady gait, low-grade fevers, sweats, chills intermittently. One episode of diarrhea a few days ago, but this resolved with antidiarrheals. Denies any urinary symptoms. Urostomy bag was placed in 2007 and states he has had no issues with that since that time. He is a current patient of Dr. Smith (cardiology). Denies cough or congestion, but endorses nasal drainage and a "cold-like symptoms." He states he has had a headache daily for approximately 2 weeks which is not normal for him. He does endorse sweats and chills intermittently. His INR was checked on Thursday which was 4.5. He also had a Lyme test obtained on Thursday but does not know the results. He denies any tick bites or rashes. Denies any recent travel. Denies any shortness of breath or CP. He endorses his gait disturbance not as near syncopal or dizziness but just has weakness. He denies any loss of strength in the bilateral upper or lower extremities. He states he has had a history of stroke and states this does not feel stroke-like. - History Of Current Complaint Chief Complaint: EDDizziness Time Seen by Provider: 09/13/18 14:05 Hx Obtained From: Patient, Family/Plastic Molding Operator Onset/Duration: Gradual Onset Timing: Constant Severity Currently: Mild Severity Initially: Mild - Allergies/Home Medications Allergies/Adverse Reactions: Allergies Allergy/AdvReac Type Severity Reaction Status Date / Time Iodinated Contrast- Oral and Allergy Anaphylatic Verified 09/13/18 14:10 IV Dye Shock pregabalin [From Lyrica] Allergy See Comment Verified 09/13/18 14:10 Home Medications: Home Medications Clindamycin Cap(NF) [Clindamycin Cap 300 mg Cap(NF)] 300 mg PO TID 09/13/18 [ History Confirmed 09/13/18] Cyanocobalamin TAB* [Vitamin B12 TAB*] 500 mcg PO DAILY 09/13/18 [History Confirmed 09/13/18] Hydrocodone/Acetamin 10/325(NF [[place] 10/325 (NF)] 1 tab PO Q6H PRN 09/13/18 [ History Confirmed 09/13/18] L.acidoph,Paracasei, B.lactis [Probiotic] 1 cap PO DAILY 09/13/18 [History Confirmed 09/13/18] Multivitamins/Minerals TAB* [Theragran/minerals TAB*] 1 tab PO DAILY 09/13/18 [ History Confirmed 09/13/18] Tiotropium CAP.INH* [Spiriva CAP.INH*] 2 cap INH DAILY 09/13/18 [History Confirmed 09/13/18] PMH/Surg Hx/FS Hx/Imm Hx Previously Healthy: Yes Endocrine/Hematology History: Denies: Hx Diabetes Cardiovascular History: Reports: Hx Atrial Fibrillation, Hx Hypertension - ON MEDS, Other Cardiovascular Problems/Disorders - Afib Denies: Hx Pacemaker/ICD Respiratory History: Reports: Hx Chronic Bronchitis, Other Respiratory Problems/ Disorders - sinusitis Denies: Hx Asthma History: Reports: Other Problems/Disorders - urostomy, bladder cancer and bladder removal Denies: Hx Dialysis, Hx Renal Disease Musculoskeletal History: Reports: Hx Arthritis, Hx Rheumatoid Arthritis - IN HANDS Sensory History: Reports: Hx Cataracts - removed, Hx Contacts or Glasses Denies: Hx Hearing Aid Opthamlomology History: Reports: Hx Cataracts - removed, Hx Contacts or Glasses Neurological History: Reports: Hx CVA - 2010 - affected left side of body, 2011 - affected right side of body Psychiatric History: Denies: Hx Panic Disorder - Cancer History Cancer Type, Location and Year: PROSTATE CA, Bladder CA Hx Chemotherapy: No Hx Radiation Therapy: No - Surgical History Surgery Procedure, Year, and Place: FULL BLADDER/PROSTATE REMOVAL ;. Cataracts removed; Hx Anesthesia Reactions: No - Immunization History Hx Pertussis Vaccination: No Immunizations Up to Date: Yes Infectious Disease History: No Infectious Disease History: Denies: Traveled Outside the [place] in Last 30 Days - Family History Known Family History: Positive: Other - Cancer - both parents and brother - Social History Occupation: Unemployed Lives: With Family Alcohol Use: Daily Alcohol Amount: "one to two a night" Hx Substance Use: No Substance Use Type: Reports: None Smoking Status (MU): Former Smoker Type: Cigarettes Amount Used/How Often: 1.5-2 PPD Have You Smoked in the Last Year: No Review of Systems Constitutional: Negative Negative: Fever, Chills, Fatigue, Skin Diaphoresis Positive: Nasal Discharge Negative: Palpitations, Chest Pain Negative: Shortness Of Breath, Cough Negative: Abdominal Pain, Vomiting Genitourinary: Negative Positive: no symptoms reported, see HPI Negative: Arthralgia, Myalgia Positive: Headache, Weakness All Other Systems Reviewed And Are Negative: Yes Physical Exam Triage Information Reviewed: Yes Vital Signs On Initial Exam: Initial Vitals Temp Pulse Resp BP Pulse Ox 98.0 F 84 16 139/81 98 09/13/18 13:41 09/13/18 13:41 09/13/18 13:41 09/13/18 13:41 09/13/18 13:41 Vital Signs Reviewed: Yes Appearance: Positive: Well-Appearing, Well-Nourished Skin: Positive: Skin Color Reflects Adequate Perfusion Head/Face: Positive: Normal Head/Face Inspection Eyes: Positive: EOMI, SHY, Conjunctiva Clear ENT: Positive: Pharynx normal, Nasal congestion, Nasal drainage, Dental tenderness, Sinus tenderness Neck: Positive: Supple, No Lymphadenopathy Respiratory/Lung Sounds: Positive: Clear to Auscultation, Breath Sounds Present Cardiovascular: Positive: IRR. Negative: Leg Edema Left, Leg Edema Right Abdomen Description: Positive: Nontender, Soft. Negative: CVA Tenderness (R), CVA Tenderness (L) Bowel Sounds: Positive: Present Musculoskeletal: Positive: Normal, Strength/ROM Intact Neurological: Positive: Alert, Oriented to Person Place, Time Psychiatric: Positive: Normal, Affect/Mood Appropriate AVPU Assessment: Alert Diagnostics - Vital Signs Vital Signs Temp Pulse Resp BP Pulse Ox 09/13/18 14:09 95 154/84 09/13/18 14:07 20 09/13/18 13:41 98.0 F 84 16 139/81 98 - Laboratory Result Diagrams: 09/13/18 14:29 09/13/18 14:29 Lab Statement: Any lab studies that have been ordered have been reviewed, and results considered in the medical decision making process. Complex Multi-Symp Course/Dx Course Of Treatment: During the course of treatment, the patient is evaluated for generalized weakness. Last INR was 2 days ago at 4.5. Previously INR 5.7 last week. Denies CP or SOB. Denies cough or congestion. On physical examination, patient appears well, moving upper and lower bilateral extremities well. No cervical LAD. No pharyngeal erythema or tonsillar exudates. EOMI/ PERRLA. Lungs CTA, A. fib noted on exam. Abdomen soft, nontender, urostomy is in place and draining well. Neuro exam completed. GCS 15. No evidence of neuro deficits. UA obtained.: 2+ leuks and 2+ wbc's, possibly contaminant, from urostomy, will await sensitivities and tailor antibiotic if needed. CXR obtained: no acute findings. Brain CT: no acute findings, except for mucosal thickening and air-fluid levels in the maxillary sinuses and ethmoid air cells. This correlates to pt's sxs of rhinorrhea/green dicsharge and feeling "fullness" in the maxillary sinuses and between the eyes. Labs obtained: all unremarkable. INR 2.33, down from 4+ 2 days ago. He is encouraged to restart his warfarin and will call Dr. Romano's office to get further instructions on repeat INR levels. Trop 0.00. EKG stable a fib - pt's baseline. Discussed with the patient at length regarding results and plan. He will be given Augmentin for likely sinusitis possibly contributing to his weakness. However, he is encouraged to follow up with his PCP soon for further evaluation. - Diagnoses Differential Diagnoses/HQI/PQRI: Other - weakness, headache Provider Diagnoses: Sinusitis Discharge - Sign-Out/Discharge Documenting (check all that apply): Patient Departure Patient Received Moderate/Deep Sedation with Procedure: No - Discharge Plan Condition: Stable Disposition: HOME Prescriptions: Amoxicillin/Clavulanate TAB* [Augmentin TAB 875*] 875 mg PO BID #13 tab Patient Education Materials: Sinusitis (ED), Weakness (ED) Referrals: Junior Zhang, SPLITTER MACHINE [Primary Care Provider] - Additional Instructions: As discussed, we are treating for your sinus symptoms/infection This may be a cause of your weakness and headache, but please still follow up with your PCP Call Dr. Romano's office tomorrow and discuss schedule for INR draws Your INR today was 2.22 and is therapetic - I recommend restarting your warfarin regimen Will call with any positive results of your urine or if we need to switch to a different antibiotic At this point, you may keep your dental surgery appt Please return if you develop worsening symptoms - Billing Disposition and Condition Condition: STABLE Disposition: Home
[2018-09-13 14:54] LABS: ABS Eosinophils 0.2 10^3/ul (0-0.6); ABS Lymphocytes 0.8 10^3/ul (1.0-4.8); ABS Monocytes 0.6 10^3/ul (0-0.8); ABS Neutrophils 2.6 10^3/ul (1.5-7.7); Eosinophil % 5.4 %; Hematocrit 35 % (42-52); Lymphocyte % 18.7 %; Mean Corpuscular HGB Conc 35 g/dL (31-36); Mean Corpuscular Hemoglobin 37 pg (27-31); Mean Corpuscular Volume 106 fL (80-94); Mean Platelet Volume 8.9 fL (7.4-10.4); Nucleated Red Blood Cells % 0.3; Platelet Count 131 10^3/uL (150-450); Red Blood Count 3.27 10^6 /uL (4.18-5.48); Red Cell Distribution Width 15 % (10-15); White Blood Count 4.1 10^3/uL (3.5-10.8)
[2018-09-13 15:03] LABS: Albumin 3.8 g/dL (3.2-5.2); Albumin/Globulin Ratio 1.1 (1-3); BUN/Creatinine Ratio 12.8 (8-20); C Reactive Protein 9.13 mg/L (<8.01); Calcium 8.7 mg/dL (8.6-10.3); EGFR African American 118.4 (>60); EGFR Non-African American 97.8 (>60); Globulin 3.6 g/dL (2-4); Total Bilirubin 0.7 mg/dL (0.2-1.0); Total Protein 7.4 g/dL (6.4-8.9)
[2018-09-13 15:50] LABS: INR 2.33 (0.82-1.09)
[2018-09-13] MEDS ORDERED: Amoxicillin/Clavulanate TAB* 875 MG PO ONE (16:36)
[2018-09-13 16:43] LABS: Urine Appearance Cloudy; Urine Bacteria Absent (Absent); Urine Bilirubin Negative (Negative); Urine Blood Negative (Negative); Urine Color Yellow; Urine Glucose Negative (Negative); Urine Ketones Negative (Negative); Urine Nitrite Positive (Negative); Urine Protein Negative (Negative); Urine Red Blood Cell Trace(0-2/hpf) (Absent); Urine Specific Gravity 1.009 (1.010-1.030); Urine Urobilinogen Negative (Negative); Urine White Blood Cell 3+(>20/hpf) (Absent)
[2018-09-13 16:47] VITALS: BP 128/67
--- NOTE | 2018-09-16 18:06 | PN ---
Progress Note - Progress Note Date of Service: 09/13/18 Note: Urine culture growing >100k pseudomonas. Pt. was treated with Augmentin for sinusitis. Pt. with hx of bladder ca and urostomy. I called and spoke with ptRk macdonald at 1803 and discussed results. Pt. states he was seen by urology recently and everything was fine. Pt. states he would like to wait and talk to his urology, Dr. De Oliveira, tomorrow before starting new antibx.
== END 2018-09-13 16:54 | disposition home or self-care (01) ==
LOC: ED 13:40
DX: J32.9 Chronic sinusitis, unspecified (principal); R53.1 Weakness; R51 Headache; R26.81 Unsteadiness on feet; R50.9 Fever, unspecified; I48.91 Unspecified atrial fibrillation; I10 Essential (primary) hypertension; Z93.6 Other artificial openings of urinary tract status; Z86.73 Personal history of transient ischemic attack (TIA), and cerebral infarction without residual deficits; Z85.46 Personal history of malignant neoplasm of prostate; Z85.51 Personal history of malignant neoplasm of bladder; Z88.8 Allergy status to other drugs, medicaments and biological substances; Z91.041 Radiographic dye allergy status; Z87.891 Personal history of nicotine dependence
CPT/HCPCS: 36415; 70450; 71046; 80053; 81003; 81015; 83605; 84484; 85025; 85610; 86140; 87077; 87086; 87186; 93005; 99284; A9270-GY

== ENCOUNTER 2019-08-01 10:41 | Inpatient (IN) ==
[2019-08-01 11:23] LABS: ABS Lymphocytes 0.7 10^3/ul (1.0-4.8); ABS Monocytes 0.4 10^3/ul (0-0.8); Eosinophil % 1.6 %; Hematocrit 27 % (42-52); Hemoglobin 9.2 g/dL (14.0-18.0); Lymphocyte % 23.5 %; Mean Corpuscular HGB Conc 34 g/dL (31-36); Mean Corpuscular Hemoglobin 38 pg (27-31); Mean Corpuscular Volume 110 fL (80-94); Mean Platelet Volume 9.2 fL (7.4-10.4); Nucleated Red Blood Cells % 0.2; Platelet Count 117 10^3/uL (150-450); Red Blood Count 2.45 10^6 /uL (4.18-5.48); Red Cell Distribution Width 14 % (10-15)
[2019-08-01 11:24] LABS: INR 2.21 (0.82-1.09)
[2019-08-01 11:37] LABS: ALT 15 U/L (7-52); AST 24 U/L (13-39); Albumin 3.5 g/dL (3.2-5.2); Albumin/Globulin Ratio 1.3 (1-3); Alkaline Phosphatase 52 U/L (34-104); Anion Gap 8 mmol/L (2-11); BUN/Creatinine Ratio 14.9 (8-20); Blood Urea Nitrogen 10 mg/dL (6-24); CO2 Carbon Dioxide 22 mmol/L (22-32); Calcium 8.4 mg/dL (8.6-10.3); Chloride 111 mmol/L (101-111); EGFR African American 140.7 (>60); EGFR Non-African American 116.3 (>60); Globulin 2.8 g/dL (2-4); Glucose 126 mg/dL (70-100); Potassium 3.9 mmol/L (3.5-5.0); Sodium 141 mmol/L (135-145); Total Protein 6.3 g/dL (6.4-8.9)
[2019-08-01] MEDS ORDERED: NS 0.9% 1000 ml BAG 1,000 ML IV ONE (11:52)
[2019-08-01] MEDS ORDERED: Phytonadione IV (Adult) 10 MG in NS 0.9% 50 ML 50 ML IV ONE (11:53)
[2019-08-01] MEDS ORDERED: Pantoprazole VIAL 40 MG VIAL IV ONE (11:53)
[2019-08-01] MEDS ORDERED: Pantoprazole 80 mg in NS BAG 80 MG/250 ML BAG IV ONE (11:53)
[2019-08-01] MEDS ORDERED: Prothrombin Complex Conc. DOSE = Units Factor IX (nine) IV SLOW PU ONE (11:53)
[2019-08-01] MEDS ORDERED: Thiamine 100 MG/ML 2 ml VIAL (200 mg) IM ONE (14:10)
[2019-08-01] MEDS ORDERED: Thiamine 100 MG/ML 2 ml VIAL 100 MG, Folic Acid 1 MG, Multiple Vitamin IV ADULT 10 ML i... IV ONE (14:15)
[2019-08-01] MEDS ORDERED: Mometasone/Formoter 200/5 MDI INH PRN (14:27)
[2019-08-01] MEDS ORDERED: Albuterol HFA INHALER 8 gm MDI INH PRN (14:27)
[2019-08-01] MEDS ORDERED: LORazepam 2 mg VIAL 1 ml IV PUSH SCH (15:00)
[2019-08-01] MEDS ORDERED: Diltiazem IV BAG D5W Premix 125 MG/125 ML BAG IV SCH ×2 (15:00→17:06)
[2019-08-01 17:13] LABS: Alcohol, S < 10 mg/dL (<10)
[2019-08-01 19:41] LABS: Hematocrit 24 % (42-52); Hemoglobin 8.1 g/dL (14.0-18.0); Mean Corpuscular HGB Conc 34 g/dL (31-36); Mean Corpuscular Hemoglobin 38 pg (27-31); Mean Corpuscular Volume 112 fL (80-94); Mean Platelet Volume 9.2 fL (7.4-10.4); Platelet Count 102 10^3/uL (150-450); Red Blood Count 2.13 10^6 /uL (4.18-5.48); Red Cell Distribution Width 15 % (10-15); White Blood Count 4.1 10^3/uL (3.5-10.8)
[2019-08-01] MEDS: Fluticasone NASAL SPRAY 50MCG 16 gm SPRAY BTL INTRANASAL SCH ×2 (20:10→20:12)
[2019-08-01] MEDS: Lactated Ringers 1000 ml BAG 1,000 ML IV SCH (22:21)
[2019-08-02 01:21] LABS: ABS Eosinophils 0.1 10^3/ul (0-0.6); ABS Lymphocytes 0.7 10^3/ul (1.0-4.8); ABS Monocytes 0.5 10^3/ul (0-0.8); Eosinophil % 1.7 %; Hematocrit 21 % (42-52); Hemoglobin 7.3 g/dL (14.0-18.0); Lymphocyte % 19.3 %; Mean Corpuscular HGB Conc 34 g/dL (31-36); Mean Corpuscular Hemoglobin 38 pg (27-31); Mean Corpuscular Volume 111 fL (80-94); Nucleated Red Blood Cells % 0.2; Platelet Count 97 10^3/uL (150-450); Red Cell Distribution Width 14 % (10-15); White Blood Count 3.5 10^3/uL (3.5-10.8)
[2019-08-02 06:15] LABS: Calcium 7.5 mg/dL (8.6-10.3); EGFR African American 169.5 (>60); EGFR Non-African American 140.1 (>60); Magnesium 1.7 mg/dL (1.9-2.7); Phosphorus 2.9 mg/dL (2.5-5.0); Potassium 3.1 mmol/L (3.5-5.0)
[2019-08-02 06:34] LABS: ABS Eosinophils 0.1 10^3/ul (0-0.6); ABS Lymphocytes 0.7 10^3/ul (1.0-4.8); ABS Monocytes 0.4 10^3/ul (0-0.8); Eosinophil % 1.9 %; Hematocrit 22 % (42-52); Hemoglobin 7.5 g/dL (14.0-18.0); INR 1.28 (0.82-1.09); Lymphocyte % 22.9 %; Mean Corpuscular HGB Conc 35 g/dL (31-36); Mean Corpuscular Hemoglobin 39 pg (27-31); Mean Corpuscular Volume 111 fL (80-94); Mean Platelet Volume 8.9 fL (7.4-10.4); Nucleated Red Blood Cells % 0.1; Platelet Count 98 10^3/uL (150-450); Red Blood Count 1.94 10^6 /uL (4.18-5.48); Red Cell Distribution Width 14 % (10-15); White Blood Count 2.9 10^3/uL (3.5-10.8)
[2019-08-02] MEDS ORDERED: Succinylcholine 200 mg VIAL 20 mg/ml 10 ml VIAL (200 mg) ONE (06:42)
[2019-08-02] MEDS: Fluticasone NASAL SPRAY 50MCG 16 gm SPRAY BTL INTRANASAL SCH ×2 (08:15→19:36)
[2019-08-02] MEDS: SPIRIVA Respimat (tiotropium) 2.5 mcg/inh Inhaler INH SCH (10:53)
[2019-08-02] MEDS ORDERED: Ondansetron 4 mg VIAL 2 MG/ML 2 ml VIAL IV PRN (13:16)
[2019-08-02] MEDS ORDERED: Magnesium Sulfate 2 gm BAG 2 GM/50 ML BAG IVPB ONE (13:41)
[2019-08-02] MEDS: KCL 20 MEQ/100 ML IVPREMIX 20 MEQ/100 ML BAG IV SCH ×2 (13:53→15:55)
[2019-08-02 18:22] LABS: Calcium 8.1 mg/dL (8.6-10.3); EGFR African American 140.7 (>60); EGFR Non-African American 116.3 (>60); Magnesium 2.3 mg/dL (1.9-2.7); Potassium 3.9 mmol/L (3.5-5.0)
[2019-08-02] MEDS: Lactated Ringers 1000 ml BAG 1,000 ML IV SCH (18:22)
[2019-08-02] MEDS ORDERED: Potassium Chlor 20 meq TAB.ER PO ONE (18:35)
[2019-08-03] MEDS ORDERED: Metoprolol Tartrate 5 mg VIAL 5 ml VIAL (1 mg/ml) IV ONE (02:00)
[2019-08-03] MEDS ORDERED: Lorazepam PYXIS KEY PRN (02:06)
[2019-08-03 06:50] LABS: Hematocrit 23 % (42-52); Hemoglobin 7.8 g/dL (14.0-18.0); Mean Corpuscular HGB Conc 34 g/dL (31-36); Mean Corpuscular Hemoglobin 38 pg (27-31); Mean Corpuscular Volume 113 fL (80-94); Mean Platelet Volume 9.1 fL (7.4-10.4); Platelet Count 101 10^3/uL (150-450); Red Blood Count 2.03 10^6 /uL (4.18-5.48); Red Cell Distribution Width 15 % (10-15); White Blood Count 3.9 10^3/uL (3.5-10.8)
[2019-08-03 06:54] LABS: Calcium 7.9 mg/dL (8.6-10.3); EGFR African American 140.7 (>60); EGFR Non-African American 116.3 (>60); Potassium 3.6 mmol/L (3.5-5.0)
[2019-08-03 07:14] LABS: % Iron Saturation 8 % (15-55); Iron 28 ug/dL (50-212); Total Iron Binding Capacity 336 mcg/dL (250-450); Transferrin 240 mg/dL (203-362)
[2019-08-03 07:33] LABS: Ferritin 64.3 ng/mL (24-336)
[2019-08-03] MEDS: Fluticasone NASAL SPRAY 50MCG 16 gm SPRAY BTL INTRANASAL SCH ×2 (10:30→21:18)
[2019-08-03] MEDS ORDERED: Iron Sucrose 200 MG in NS 0.9% 100 ml BAG 100 ML IVPB ONE (10:30)
[2019-08-03 11:54] LABS: Folate 14.56 ng/mL (>3.99)
[2019-08-03] MEDS: SPIRIVA Respimat (tiotropium) 2.5 mcg/inh Inhaler INH SCH (19:57)
[2019-08-04] MEDS ORDERED: Metoprolol Tartrate 5 mg VIAL 5 ml VIAL (1 mg/ml) IV ONE (05:35)
[2019-08-04] MEDS ORDERED: Metoprolol Tartrate 5 mg VIAL 5 ml VIAL (1 mg/ml) ONE (05:42)
[2019-08-04 06:25] LABS: ABS Eosinophils 0.1 10^3/ul (0-0.6); ABS Lymphocytes 0.8 10^3/ul (1.0-4.8); ABS Monocytes 0.6 10^3/ul (0-0.8); Hematocrit 25 % (42-52); Hemoglobin 8.6 g/dL (14.0-18.0); Lymphocyte % 18.9 %; Mean Corpuscular HGB Conc 34 g/dL (31-36); Mean Corpuscular Hemoglobin 39 pg (27-31); Mean Corpuscular Volume 113 fL (80-94); Mean Platelet Volume 9.1 fL (7.4-10.4); Nucleated Red Blood Cells % 0.3; Platelet Count 125 10^3/uL (150-450); Red Blood Count 2.23 10^6 /uL (4.18-5.48); Red Cell Distribution Width 15 % (10-15); White Blood Count 4.5 10^3/uL (3.5-10.8)
[2019-08-04 06:40] LABS: BUN/Creatinine Ratio 6.8 (8-20); Calcium 8.5 mg/dL (8.6-10.3); EGFR African American 127.4 (>60); EGFR Non-African American 105.3 (>60); Magnesium 1.9 mg/dL (1.9-2.7); Potassium 4.1 mmol/L (3.5-5.0)
[2019-08-04] MEDS: Fluticasone NASAL SPRAY 50MCG 16 gm SPRAY BTL INTRANASAL SCH (08:25)
[2019-08-04] MEDS ORDERED: Iron Sucrose 200 MG in NS 0.9% 100 ml BAG 100 ML IVPB ONE (08:30)
[2019-08-04] MEDS ORDERED: Magnesium Sulfate IV 1GM/100ML 1 GM/100 ML BAG IV ONE (10:15)
[2019-08-04 12:19] VITALS: BP 106/64
== END 2019-08-04 11:25 | disposition home or self-care (01) | DRG 308 ==
LOC: ED 10:41 → ICU 14:05 → MEDTELE 08-02 13:48
PROVIDERS: ADMIT Internal Medicine Critical Care Medicine; ATTEND Internal Medicine